=== PATIENT | female | born 1980 | race Caucasian/White ===

== ENCOUNTER 2019-08-01 22:17 | Emergency (ER) | payer MEDICARE, OTHER, SELFPAY ==
[2019-08-01 23:07] VITALS: BP 131/95; PULSE 86; RESP 15; TEMP 37; O2SAT 98; BMI 44.6
--- NOTE | 2019-08-01 23:20 | ED_ITS ---
HPI - Headache General: Chief Complaint: Headache Stated Complaint: Head Ache Time Seen by Provider: 08/01/19 23:20 History of Present Illness: HPI Narrative: Migraine as before patient requesting shot as she has had in the past has been very successful in curbing her migraine MD elicited complaint: migraine Onset (ago): hour(s) Onset description: gradually Quality & Timing: aching and throbbing Exacerbating factors: light and noise Relieving factors: nothing Associated symptoms: Deny chest pain, fever(s), nausea, rash or vomiting Review of Systems Const: Denies: fever, chills or body aches Eyes: Denies: change in vision or blurry vision ENMT: Denies: throat pain or nasal congestion Card: Denies: chest pain or shortness of breath on exertion Resp: Denies: shortness of breath, productive cough or non-productive cough GI: Denies: abdominal pain, nausea or vomiting Musc: Denies: extremity pain Skin/Breast: Denies: rash Neuro: Reports: headache Psych: Denies: anxiety or depression [place]/Lymph: Denies: easy bruising PFSH ED PFSH: Statuses (acute, chronic, etc) shown below reflect problem list status as previously entered and may not be historically accurate Social History Smoking and tobacco status: current every day smoker Female Reproductive History: Date of last menstrual period: 07/26/19 Physical Exam Const: COMMON NORMALS: no apparent distress, average body habitus and oriented x3 HENMT: COMMON NORMALS: normocephalic HEAD & SCALP: normal to inspection and normocephalic FACE & SINUS: normal facial exam Eye: COMMON NORMALS: conjunctivae normal GENERAL EYE: normal appearance of both eyes CONJUNCTIVA: Yes conjunctivae normal Neck/C-Spine: COMMON NORMALS: no JVD Chest: COMMONS NORMALS: inspection of chest normal Resp: COMMON NORMALS: normal respiratory effort and clear to auscultation bilaterally AUSCULTATION: clear to auscultation bilaterally Cardio: COMMON NORMALS: no JVD, regular rate and regular rhythm RATE: regular rate RHYTHM: regular rhythm GI: COMMON NORMALS: normal to inspection, nondistended, normoactive bowel sounds Extremity: COMMON NORMALS: normal to inspection and full ROM Neuro: COMMON NORMALS: oriented x3 Course Vital Signs: Vital signs: Vital Signs Temperature 98.6 F 08/01/19 23:07 Pulse Rate 86 01/07/20 23:07 Respiratory Rate 15 08/01/19 23:07 Blood Pressure 131/95 08/01/19 23:07 Pulse Oximetry 98 08/01/19 23:07 Discharge Plan Discharge Patient Disposition: Home, Self-Care Clinical Impression: Migraine Condition: Stable Referrals: [facility] [Other] Discharge Diet: Usual diet Discharge Activity: Increase activity as tolerated Patient Instructions: Migraine Headache (ED) Activity Restrictions/Additional Instructions: Follow-up with family doctor if no improvement. Can return to the ER if condition worsens. Get rest. Increase fluids. Coding Level of Care Code ED Oil Refinery Operator for Priscila Olmstead
[2019-08-01] MEDS: ketorolac 60 mg/2 mL INJ IM (23:36)
[2019-08-01] MEDS: promethazine 25 mg/mL SDV 1 mL IM (23:37)
[2019-08-02 00:29] VITALS: BP 122/86; PULSE 76; RESP 16; O2SAT 99
== END 2019-08-02 00:32 | disposition home or self-care (01) ==
LOC: ER 23:28
PROVIDERS: Emergency Provider Nurse Practitioner Family
DX: G43.909 Migraine, unspecified, not intractable, without status migrainosus (principal); F17.210 Nicotine dependence, cigarettes, uncomplicated
CPT/HCPCS: 96372; 99281; J1885; J2550

== ENCOUNTER 2019-08-14 23:53 | Emergency (ER) | payer OTHER, MEDICARE, SELFPAY ==
[2019-08-15 00:23] VITALS: BP 126/89; PULSE 88; RESP 16; TEMP 36.8; O2SAT 93; BMI 52.3
--- NOTE | 2019-08-15 00:28 | ED_ITS ---
Entered by Hannah Correa, acting as scribe for Bhavana Camarena Carlos Aug 14, 2019 23:53 HPI - Headache General: Chief Complaint: Headache Stated Complaint: Migraine,Sinus and ear pain Time Seen by Provider: 08/15/19 00:26 Source: patient Mode of arrival: ambulatory History of Present Illness: HPI Narrative: 39 y/o female presents to the ED with complaint of VENCES. Pt states she has hx of migraines. Pt has had sinus congestion and ear discomfort. MD elicited complaint: headache and migraine Pertinent past history: migraines Onset (ago): day(s) (1) Onset description: gradually Severity: mild Relieving factors: nothing Associated symptoms: Deny chest pain, confusion, diaphoresis, fever(s), malaise, nausea, pre-syncope, rash, syncope or vomiting Review of Systems General: Reports: other (negative unless marked) Const: Denies: fever, chills, body aches, fatigue, malaise or diaphoresis Eyes: Denies: change in vision or blurry vision Card: Denies: chest pain, palpitations, irregular heart rhythm, syncope, pre- syncope, shortness of breath on exertion or shortness of breath when lying down Resp: Denies: shortness of breath, productive cough, non-productive cough, wheezing, coughing up blood or chest congestion GI: Denies: abdominal pain, nausea, vomiting, vomiting blood, coffee grounds in vomit, diarrhea, constipation, cramping, blood in stool or black tarry stool : Denies: flank pain, painful urination, urinary frequency, urinary urgency, decreased urine ouput, urinary incontinence or blood in urine Musc: Denies: neck pain, back pain, extremity pain, extremity swelling, joint pain, joint swelling, joint warmth or joint stiffness Skin/Breast: Denies: rash, skin tenderness or yellow skin Neuro: Denies: headache, numbness in extremities, weakness in extremities, changes in sensation, lack of coordination, difficulty walking, dizziness, vertigo or confusion Endo: Denies: excessive thirst, tired all the time, cold intolerance, excessive sweating, flushing or hot flashes [place]/Lymph: Denies: easy bruising, easy bleeding, petechiae or enlarged lymph nodes All/Imm: Denies: hives, throat swelling, tongue swelling, facial swelling or acute wheezing PFSH ED 2 PFSH: Statuses (acute, chronic, etc) shown below reflect problem list status as previously entered and may not be historically accurate Social History Smoking and tobacco status: current every day smoker Female Reproductive History: Date of last menstrual period: 07/26/19 Physical Exam Const: COMMON NORMALS: no apparent distress, oriented x3, no limitations, healthy appearing and well nourished EXAM LIMITATIONS: no altered mental status GENERAL APPEARANCE: cooperative, well kempt and well developed ORIENTATION/CONSCIOUSNESS: Yes awake HENMT: COMMON NORMALS: normocephalic, head/scalp atraumatic, hearing grossly normal bilaterally, external ears normal, external nose normal and moist oral mucous membranes HEAD & SCALP: normal to inspection, normocephalic and atraumatic FACE & SINUS: normal facial exam and face symmetric NOSE: external nose normal and nares normal EXTERNAL EAR: Yes external ears normal MOUTH: oral and palatal mucosa normal and tongue normal Eye: COMMON NORMALS: PERRL, EOMs intact bilaterally, conjunctivae normal and no scleral icterus GENERAL EYE: normal appearance of both eyes and normal light reflex CONJUNCTIVA: Yes conjunctivae normal SCLERA: sclerae normal CORNEA: Yes corneas normal PUPIL: Yes PERRL DIRECT OPHTHALMOSCOPY: Yes normal light reflex Neck/C-Spine: COMMON NORMALS: full ROM, no lymphadenopathy, supple, no meningeal signs and no JVD GENERAL: Yes normal visual inspection and Yes trachea midline CERVICAL SPINE: Yes cervical ROM normal Chest: COMMONS NORMALS: inspection of chest normal and palpation of chest normal Resp: COMMON NORMALS: normal respiratory effort, no retractions, no use of accessory muscles and clear to auscultation bilaterally EFFORT & INSPECTION: Yes able to speak in complete sentences AUSCULTATION: clear to auscultation bilaterally Cardio: COMMON NORMALS: no JVD, regular rate, regular rhythm, S1 normal heart sound, S2 normal heart sound, no gallops, no clicks, no murmurs and no rub JUGULAR VENOUS DISTENTION: no JVD RATE: regular rate RHYTHM: regular rhythm HEART SOUNDS: S1 normal and S2 normal GI: COMMON NORMALS: soft to palpation, non-tender, no hepatosplenomegaly and no masses INSPECTION: Yes normal to inspection PALPATION: Yes soft and Yes no hepatosplenomegaly : COMMON NORMALS: Yes no CVA tenderness BLADDER/KIDNEY EXAM: Yes no CVA tenderness Back/Pelvis: COMMON NORMALS: no CVA tenderness, thoracic and lumbar spine normal to inspection, no thoracic nor lumbar tenderness and thoraco-lumbar ROM normal Extremity: COMMON NORMALS: normal to inspection, full ROM, normal capillary refill, no joint enlargement, no clubbing, cyanosis or edema and no calf tenderness Neuro: COMMON NORMALS: oriented x3, CN's II-XII intact bilaterally, moves all extremities, no focal motor deficits and no sensory deficits noted MENINGEAL SIGNS: Yes no meningeal signs Psych: COMMON NORMALS: mental status grossly normal, thought process normal, cooperative, affect normal, speech normal and activity/motor behavior normal APPEARANCE: Yes well kempt SPEECH: Yes normal speech THOUGHT PROCESS: normal thought process Skin: COMMON NORMALS: no rashes or lesions noted, skin turgor normal, no jaundice, no petechiae and no mottling GENERAL SKIN EXAM: no rashes or lesions noted and turgor normal Course Vital Signs: Vital signs: Vital Signs Temperature 98.2 F 08/15/19 00:23 Pulse Rate 88 08/15/19 00:23 Respiratory Rate 16 08/15/19 00:23 Blood Pressure 126/89 08/15/19 00:23 Pulse Oximetry 93 08/15/19 00:23 MDM - Headache MDM Narrative: Medical decision making narrative: The patient has a migraine headache which she states is normally relieved by Toradol and Phenergan. She states she has chronic sinusitis and understands antibiotics will not work for this but Flonase will usually work. She will try this at home. She agrees to return should her symptoms change or worsen but this time other than her headache she has no complaints. Discharge Plan Discharge Patient Disposition: Home, Self-Care Clinical Impression: Migraine Qualifiers: Migraine type: without aura Status migrainosus presence: without status migrainosus Intractability: not intractable Qualified Code(s): G43.009 - Migraine without aura, not intractable, without status migrainosus Sinusitis Qualifiers: Sinusitis location: maxillary Chronicity: chronic Qualified Code(s): J32.0 - Chronic maxillary sinusitis Condition: Stable Discharge Orders: Discharge Order (Routine); Ordered 08/15/19 Ordered By: Bhavana Camarena Referrals: [facility] [Other] Provider,[facility]IM [Primary Care Provider] - 1-3 days Discharge Diet: Usual diet Discharge Activity: Increase activity as tolerated Patient Instructions: Headache - Migraine (Adult) Activity Restrictions/Additional Instructions: Please return to the ER immediately for any of the signs or symptoms listed on your discharge instruction sheets, worsening/changing of your symptoms, you are not getting better as quickly as expected, or for ANY other cause or concerns. Discharge Date/Time: 08/15/19 01:24 Coding Level of Care Code ED Hydraulic Riveter for Chg Fwd Exam Problem Focused The documentation recorded by the Sunny brown Ashley, accurately reflects the service I personally performed and the decisions made by , Bhavana Camarena Aug 14, 2019 23:53
[2019-08-15] MEDS: ketorolac 60 mg/2 mL INJ IM (00:46)
[2019-08-15] MEDS: promethazine 25 mg/mL SDV 1 mL IM (00:46)
--- NOTE | 2019-08-15 01:11 | PC.NURSE ---
Introduced self to patient and initiated vital signs. Pt is A&O x 4 and agreeable. Pt states that the reason for the ER visit today is due to a headache. Reassured patient of needs and will continue to monitor. Awaiting provider at bedside.
== END 2019-08-15 01:24 | disposition home or self-care (01) ==
PROVIDERS: Emergency Provider Emergency Medicine
DX: G43.009 Migraine without aura, not intractable, without status migrainosus (principal); J32.0 Chronic maxillary sinusitis; F17.210 Nicotine dependence, cigarettes, uncomplicated
CPT/HCPCS: 96372; 99281; J1885; J2550

== ENCOUNTER 2019-08-20 21:59 | Emergency (ER) | payer MEDICARE, OTHER, SELFPAY ==
[2019-08-20 22:08] VITALS: BP 139/89; PULSE 90; RESP 18; TEMP 36.7; O2SAT 98; BMI 45.4
--- NOTE | 2019-08-20 22:10 | XR_ITS ---
WS: [id number] WRIST RIGHT TECHNIQUE: 3 views of the right wrist CLINICAL INFORMATION: trauma COMPARISON: None. FINDINGS: Normal radiocarpal joint. Scaphoid is normal in appearance. No evidence of radiocarpal dislocation. D istal radius and ulna are normal in appearance. XR/XR wrist RT min 3V* [id number] IMPRESSION: Normal right wrist.
--- NOTE | 2019-08-20 22:42 | ED_ITS ---
HPI - Fall General: Chief Complaint: Fall Stated Complaint: FALL, RIGHT ARM/WRIST INJURY Time Seen by Provider: 08/20/19 22:29 History of Present Illness: HPI Narrative: Patient fell while walking dog earlier today in her right wrist. MD complaint: fall Onset (ago): hour(s) Fall from: standing Fall witnessed: no Place fall occurred: home Loss of consciousness: None Location of injury - extremities: Right: forearm Severity: mild Severity scale (1-10): 2 Quality: dull Associated symptoms-after fall: Reports no associated symptoms; Denies abdominal pain, chest pain or headache(s) Review of Systems Const: Denies: fever, chills or body aches Eyes: Denies: change in vision or blurry vision ENMT: Denies: throat pain or nasal congestion Card: Denies: chest pain or shortness of breath on exertion Resp: Denies: shortness of breath, productive cough or non-productive cough GI: Denies: abdominal pain, nausea or vomiting Musc: Reports: extremity swelling and joint pain; Denies: extremity pain Skin/Breast: Denies: rash Neuro: Denies: headache Psych: Denies: anxiety or depression [place]/Lymph: Denies: easy bruising PFSH ED PFSH: Statuses (acute, chronic, etc) shown below reflect problem list status as previously entered and may not be historically accurate Social History Smoking and tobacco status: current every day smoker Female Reproductive History: Date of last menstrual period: 07/26/19 Physical Exam Const: COMMON NORMALS: no apparent distress, average body habitus and oriented x3 HENMT: COMMON NORMALS: normocephalic HEAD & SCALP: normal to inspection and normocephalic FACE & SINUS: normal facial exam Eye: COMMON NORMALS: conjunctivae normal GENERAL EYE: normal appearance of both eyes CONJUNCTIVA: Yes conjunctivae normal Neck/C-Spine: COMMON NORMALS: no JVD Chest: COMMONS NORMALS: inspection of chest normal Resp: COMMON NORMALS: normal respiratory effort and clear to auscultation bilaterally AUSCULTATION: clear to auscultation bilaterally Cardio: COMMON NORMALS: no JVD, regular rate and regular rhythm RATE: regular rate RHYTHM: regular rhythm GI: COMMON NORMALS: normal to inspection, nondistended, normoactive bowel sounds Extremity: COMMON NORMALS: full ROM RIGHT UPPER EXTREMITY: Yes wrist (Tender with mild swelling does have full range of motion) Neuro: COMMON NORMALS: oriented x3 Course Vital Signs: Vital signs: Vital Signs Temperature 98.0 F 08/20/19 22:08 Pulse Rate 90 08/20/19 22:08 Respiratory Rate 18 08/20/19 22:08 Blood Pressure 139/89 08/20/19 22:08 Pulse Oximetry 98 08/20/19 22:08 Discharge Plan Discharge Patient Disposition: Home, Self-Care Clinical Impression: Right wrist sprain Qualifiers: Encounter type: initial encounter Qualified Code(s): S63.501A - Unspecified sprain of right wrist, initial encounter Condition: Stable Discharge Orders: Discharge Order (Routine); Ordered 08/20/19 Ordered By: Kyle Lopez Referrals: [facility] [Other] Discharge Diet: Usual diet Discharge Activity: Resume usual activity Patient Instructions: Wrist Sprain (ED) Activity Restrictions/Additional Instructions: Wear splint t2-3 weeks try to exercise rest can use ice to help with inflammation take Tylenol for discomfort follow-up with primary if no significant provement. Coding Level of Care Code ED Deputy [employer] for Priscila Olmstead
--- NOTE | 2019-08-20 23:08 | PC.NURSE ---
Introduced self to patient and initiated vital signs. Pt is A&O x 3 and agreeable. Pt states that the reason for the ER visit today is due to injury to right wrist due to falling over dog. Reassured patient of needs and will continue to monitor.
[2019-08-20 23:11] VITALS: BP 124/104; PULSE 94; RESP 18
== END 2019-08-20 23:13 | disposition home or self-care (01) ==
LOC: ER 08-21 00:44
PROVIDERS: Emergency Provider Nurse Practitioner Family
DX: S63.501A Unspecified sprain of right wrist, initial encounter (principal); W19.XXXA Unspecified fall, initial encounter; Y92.009 Unspecified place in unspecified non-institutional (private) residence as the place of occurrence of the external cause; F17.210 Nicotine dependence, cigarettes, uncomplicated
CPT/HCPCS: 73110; 99281

== ENCOUNTER 2019-08-27 21:58 | Emergency (ER) | payer MEDICARE, OTHER, SELFPAY ==
[2019-08-27 22:22] VITALS: BP 135/78; TEMP 36.7; BMI 44.6
--- NOTE | 2019-08-27 22:25 | ED_ITS ---
Entered by Hannah Correa, acting as scribe for Cl Wick DO Aug 27, 2019 21:58 HPI - Headache General: Chief Complaint: Headache Stated Complaint: migraine Time Seen by Provider: 08/27/19 22:25 Source: patient History of Present Illness: HPI Narrative: 39 y/o female presents to the ED with complaint of migraine VENCES. Pt has hx of migraines and has been seen several times for the same complaint. Pt states the only thing that helps is 60 of Toradol and 25 of Phenergan . Pt is also complaining of right wrist pain from a recent fall. She was seen here and placed in a brace. She reports some left ear itching. She has also been under increased stress since her mother in May and other family drama. MD elicited complaint: migraine Pertinent past history: migraines Associated symptoms: Reports nausea; Deny chest pain, fever(s), rash or vomiting Review of Systems Const: Denies: fever or chills Eyes: Denies: change in vision or blurry vision ENMT: Reports: ear pain (left), Change in hearing and facial/sinus pain; Denies: painful swallowing, swelling of lips/tongue, bleeding gums or dental pain Card: Denies: chest pain, palpitations, irregular heart rhythm, edema, sw elling of feet/ankles, shortness of breath on exertion or shortness of breath when lying down Resp: Denies: shortness of breath, productive cough, non-productive cough or wheezing GI: Reports: nausea; Denies: abdominal pain, vomiting, rectal pain, blood in stool or black tarry stool : Denies: painful urination, urinary frequency, urinary urgency or blood in urine Skin/Breast: Denies: rash, itching or redness Neuro: Reports: headache; Denies: dizziness or vertigo Psych: Reports: anxiety PFSH ED PFSH: Statuses (acute, chronic, etc) shown below reflect problem list status as previously entered and may not be historically accurate Social History Smoking and tobacco status: current every day smoker Female Reproductive History: Date of last menstrual period: 07/26/19 Physical Exam Const: GENERAL APPEARANCE: well developed ORIENTATION/CONSCIOUSNESS: Yes oriented to person, Yes oriented to place and Yes oriented to time HENMT: COMMON NORMALS: normocephalic and external nose normal HEAD & SCALP: normocephalic; no scalp tenderness FACE & SINUS: normal facial exam NOSE: external nose normal and no nasal discharge GENERAL EAR: other (left canal redness) MOUTH: tongue normal Eye: COMMON NORMALS: PERRL, EOMs intact bilaterally and conjunctivae normal EYELID: eyelids normal CONJUNCTIVA: Yes conjunctivae normal PUPIL: Yes PERRL Neck/C-Spine: COMMON NORMALS: full ROM GENERAL: No tracheal deviation CERVICAL SPINE: Yes normal cervical lordosis and No cervical spine tenderness Chest: COMMONS NORMALS: inspection of chest normal CHEST: No tenderness Resp: COMMON NORMALS: clear to auscultation bilaterally EFFORT & INSPECTION: No tachypneic, No respiratory distress, No retractions, No uses accessory muscles and No tracheal deviation AUSCULTATION: clear to auscultation bilaterally, no rhonchi, no wheezes and lung sounds not diminished Cardio: COMMON NORMALS: regular rate and regular rhythm RATE: regular rate RHYTHM: regular rhythm HEART SOUNDS: no murmurs PERIPHERAL PULSES: radial pulses present GI: INSPECTION: No abdominal distension AUSCULTATION: No hyperactive bowel sounds and No hypoactive bowel sounds PALPATION: No guarding and No rigid PERCUSSION: no dullness to percussion and no tympanic to percussion : COMMON NORMALS: Yes no CVA tenderness BLADDER/KIDNEY EXAM: Yes no CVA tenderness Back/Pelvis: COMMON NORMALS: no CVA tenderness Extremity: LEFT UPPER EXTREMITY: Yes wrist (tenderness/mild swelling) Neuro: SENSORIUM/ORIENTATION: Yes oriented to person, Yes oriented to place and Yes oriented to time Psych: COMMON NORMALS: mental status grossly normal Skin: COMMON NORMALS: no rashes or lesions noted GENERAL SKIN EXAM: no rashes or lesions noted Course ED course: Patient presents with multiple complaints, none of which terribly emergent. Her headache improved after her injection. She will be prescribed p.o. Toradol for her wrist swelling status post sprain last week. She was prescribed Cortisporin for her otitis externa, which appeared to be allergic. Vital Signs: Vital signs: Vital Signs Temperature 98.1 F 08/27/19 22:22 Pulse Rate 75 08/27/19 23:41 Respiratory Rate 16 08/27/19 23:41 Blood Pressure 124/80 08/27/19 23:41 Pulse Oximetry 95 08/27/19 23:41 Discharge Plan Discharge Patient Disposition: Home, Self-Care Clinical Impression: Migraine Qualifiers: Migraine type: without aura Status migrainosus presence: without status migrainosus Intractability: not intractable Qualified Code(s): G43.009 - Migraine without aura, not intractable, without status migrainosus Otitis externa of left ear Qualifiers: Otitis externa type: noninfectious Noninfectious otitis externa type: eczematoid Chronicity: acute Qualified Code(s): H60.542 - Acute eczematoid otitis externa, left ear Condition: Stable Prescriptions: New ketorolac 10 mg tablet 10 mg PO Q6H PRN (Reason: pain) Qty: 10 RF: 0 Discharge Orders: Discharge Order (Routine); Ordered 08/27/19 Ordered By: Cl Wick Referrals: [facility] [Other] Discharge Diet: Usual diet Discharge Activity: Limit activity as instructed Patient Instructions: Otitis Externa (ED), Migraine Headache (ED) Activity Restrictions/Additional Instructions: Continue to splint the wrist up to 2 weeks. Medications as directed. Ice the wrist frequently. Discharge Date/Time: 08/27/19 23:42 Coding Level of Care Code ED Mgmt Analyst for Chg Fwd The documentation recorded by the Sunny brown Ashley, accurately reflects the service I personally performed and the decisions made by Delano bolanos Jeremy John, DO Aug 27, 2019 21:58
[2019-08-27] MEDS: ketorolac 60 mg/2 mL INJ IM (23:06)
[2019-08-27] MEDS: promethazine 25 mg/mL SDV 1 mL IM (23:06)
--- NOTE | 2019-08-27 23:08 | PC.NURSE ---
Patient reports that she has had a headache today due to stress. Patient states that she also is having right arm pain. Patient reports that she fell awhile back and injured her right wrist. Patient was seen here in the ER and sent home with an travon wrap. Patient currently wearing a wrist splint.
[2019-08-27] MEDS: neomycin-poly-hydrocort Otic Susp 10 mL Btl 4 DROP EAR-LEFT (23:40)
[2019-08-27 23:41] VITALS: BP 124/80; PULSE 75; RESP 16; O2SAT 95
== END 2019-08-27 23:42 | disposition home or self-care (01) ==
PROVIDERS: Emergency Provider Emergency Medicine
DX: G43.909 Migraine, unspecified, not intractable, without status migrainosus (principal); H60.542 Acute eczematoid otitis externa, left ear; M25.431 Effusion, right wrist; F17.210 Nicotine dependence, cigarettes, uncomplicated
CPT/HCPCS: 96372; 99281; 99283; J1885; J2550

== ENCOUNTER 2019-09-06 18:28 | Emergency (ER) | payer MEDICARE, OTHER, SELFPAY ==
[2019-09-06 18:30] VITALS: BP 129/88; PULSE 96; RESP 18; TEMP 36.6; O2SAT 97; BMI 44.6
[2019-09-06 18:41] VITALS: BP 114/79; PULSE 84; RESP 16; TEMP 36.8; O2SAT 97
--- NOTE | 2019-09-06 18:43 | XRR_ITS ---
PROCEDURE INFORMATION: Exam: XR Left Knee Exam date and time: 09/06/2019 6:53 PM Age: 39 years old Clinical indication: Pain; Knee; Left; Additional info: Pain, left knee x 1 week TECHNIQUE: Imaging protocol: XR Left knee. Views: Frontal and oblique (flexed), and lateral views. COMPARISON: CR Knee 3 views, LEFT* [id number] 08/26/2018 11:49 AM FINDINGS: Bones/joints: Normal. Soft tissues: Normal. XR/XR knee LT 3V* [id number] IMPRESSION: No acute findings.
--- NOTE | 2019-09-06 18:47 | W.ED.GENADLT ---
HPI - General Adult General: Chief complaint: General Medical Stated complaint: left knee pain/headache Time Seen by Provider: 09/06/19 18:38 Source: patient Mode of arrival: ambulatory Limitations: no limitations History of Present Illness: HPI narrative: Patient comes in today with complaints of left knee pain and a migraine headache. Patient states that she does not recall what she had done but starting over the last 2 days she has had increased pain and difficulty with her left knee and is unable to bear weight with it. Patient also reports having a migraine and would like to get an injection of Toradol and promethazine to abort her migraine. Patient appears well. Patient appears in mild pain at rest. Associated symptoms: Reports headache(s) Review of Systems General: Reports: 10 or more systems reviewed and unremarkable except in HPI and below Musc: Reports: joint pain (left knee) Neuro: Reports: headache PFSH ED PFSH: Statuses (acute, chronic, etc) shown below reflect problem list status as previously entered and may not be historically accurate Social History Smoking and tobacco status: current every day smoker Female Reproductive History: Date of last menstrual period: 07/26/19 Physical Exam Const: COMMON NORMALS: no apparent distress and oriented x3 GENERAL APPEARANCE: cooperative HENMT: COMMON NORMALS: normocephalic, external ears normal, EAC's normal, TM's normal bilaterally and external nose normal HEAD & SCALP: normal to inspection and normocephalic FACE & SINUS: normal facial exam NOSE: external nose normal GENERAL EAR: hearing not grossly impaired EXTERNAL EAR: Yes external ears normal EXTERNAL AUDITORY CANAL: EAC's normal TYMPANIC MEMBRANE: TM's normal bilaterally MOUTH: oral and palatal mucosa normal THROAT: posterior oropharynx normal Eye: COMMON NORMALS: PERRL and EOMs intact bilaterally PUPIL: Yes PERRL Neck/C-Spine: COMMON NORMALS: full ROM and no lymphadenopathy Lymph: LYMPHATIC: no lymphedema noted Chest: COMMONS NORMALS: inspection of chest normal and palpation of chest normal Resp: COMMON NORMALS: normal respiratory effort and clear to auscultation bilaterally AUSCULTATION: clear to auscultation bilaterally Cardio: COMMON NORMALS: regular rate and regular rhythm RATE: regular rate RHYTHM: regular rhythm GI: COMMON NORMALS: normal to inspection, nondistended, normoactive bowel sounds and non-tender : COMMON NORMALS: Yes no CVA tenderness BLADDER/KIDNEY EXAM: Yes no CVA tenderness Back/Pelvis: COMMON NORMALS: no CVA tenderness and thoracic and lumbar spine normal to inspection Extremity: GENERAL: Yes edema (mild left knee) LEFT LOWER EXTREMITY: Yes knee joint Left knee: Yes palpation (medial line tenderness) and Yes ROM (limited flexion and extension) Neuro: COMMON NORMALS: oriented x3, moves all extremities and no focal motor deficits Psych: COMMON NORMALS: mental status grossly normal and cooperative Skin: COMMON NORMALS: no rashes or lesions noted GENERAL SKIN EXAM: no rashes or lesions noted Course Vital Signs: Vital signs: Vital Signs Temperature 98.3 F 09/06/19 18:41 Pulse Rate 84 09/06/19 18:41 Respiratory Rate 16 09/06/19 18:41 Blood Pressure 114/79 09/06/19 18:41 Pulse Oximetry 97 09/06/19 18:41 MDM - General Adult MDM Narrative: Medical decision making narrative: Patient presents with headache starting this morning. Patient also has left knee pain that started this afternoon. Patient was seen at urgent care and no x-ray was done and she was concerned about her knee so she came to the ER for further evaluation. Exam notes some swelling to the medial aspect of the left knee. Decreased range of motion with flexion and extension. Stable knee joint. Tenderness to the medial aspect of the knee joint. Distal pulses are intact. Differential diagnosis includes tension type headache, migraine headache, malingering, knee sprain, meniscal injury, cruciate ligament strain, tendinitis, bursitis. X-ray of the knee were normal. Patient was injected with Toradol 60 mg and 25 mg of promethazine for her headache. We will continue patient on diclofenac for her knee pain. Elastic wrap for comfort. Follow-up with primary care for persistent symptoms or new concerns. Discharge Plan Discharge Patient Disposition: Home, Self-Care Clinical Impression: Headache Qualifiers: Headache type: tension-type Headache chronicity pattern: acute headache Intractability: not intractable Qualified Code(s): G44.209 - Tension-type headache, unspecified, not intractable Left knee pain Qualifiers: Chronicity: acute Qualified Code(s): M25.562 - Pain in left knee Condition: Stable Prescriptions: New diclofenac sodium 75 mg tablet,delayed release (DR/EC) 75 mg PO BID Qty: 14 RF: 0 Discharge Orders: Discharge Order (Routine); Ordered 09/06/19 Ordered By: Rojelio Ty Referrals: [facility] [Other] Discharge Diet: Usual diet Discharge Activity: Increase activity as tolerated Patient Instructions: Knee Pain (ED) Activity Restrictions/Additional Instructions: Activity as tolerated Elastic bandage Use walker to help assist with walking Follow-up with primary care in one week Coding Level of Care Code ED Auto Claim Representative for Priscila Fwgwendolyn Exam Problem Focused
[2019-09-06 19:57] VITALS: BP 138/78; PULSE 87; RESP 16; TEMP 36.8; O2SAT 98
== END 2019-09-06 19:58 | disposition home or self-care (01) ==
PROVIDERS: Emergency Provider Nurse Practitioner Family
DX: R51 Headache (principal); M25.562 Pain in left knee; F17.200 Nicotine dependence, unspecified, uncomplicated
CPT/HCPCS: 73562; 99281; 99283

== ENCOUNTER 2019-10-04 22:33 | Emergency (ER) | payer MEDICARE, OTHER, SELFPAY ==
[2019-10-04 22:55] VITALS: BP 132/88; PULSE 88; RESP 18; TEMP 36.5; O2SAT 99; BMI 44.6
--- NOTE | 2019-10-04 23:39 | W.ED.HA ---
HPI - Headache General: Chief Complaint: Headache Stated Complaint: MIGRAINE Time Seen by Provider: 10/04/19 22:34 Source: patient Mode of arrival: ambulatory Limitations: no limitations History of Present Illness: HPI Narrative: Patient comes in with a migraine headache for the last 3 days. Patient has been unable to get control of the headache at home with routine medications. Patient appears well. Patient appears in moderate pain. Patient also requests that her ears be checked for abnormality. Review of Systems General: Reports: 10 or more systems reviewed and unremarkable except in HPI and below Neuro: Reports: headache PFSH ED PFSH: Social History Smoking and tobacco status: current every day smoker Female Reproductive History: Date of last menstrual period: 07/26/19 Physical Exam Const: COMMON NORMALS: no apparent distress and oriented x3 GENERAL APPEARANCE: cooperative HENMT: COMMON NORMALS: normocephalic, external ears normal, EAC's normal, TM's normal bilaterally and external nose normal HEAD & SCALP: normal to inspection and normocephalic FACE & SINUS: normal facial exam NOSE: external nose normal GENERAL EAR: hearing not grossly impaired EXTERNAL EAR: Yes external ears normal EXTERNAL AUDITORY CANAL: EAC's normal TYMPANIC MEMBRANE: TM's normal bilaterally MOUTH: oral and palatal mucosa normal THROAT: posterior oropharynx normal Eye: COMMON NORMALS: PERRL and EOMs intact bilaterally PUPIL: Yes PERRL Neck/C-Spine: COMMON NORMALS: full ROM and no lymphadenopathy Lymph: LYMPHATIC: no lymphedema noted Chest: COMMONS NORMALS: inspection of chest normal and palpation of chest normal Resp: COMMON NORMALS: normal respiratory effort and clear to auscultation bilaterally AUSCULTATION: clear to auscultation bilaterally Cardio: COMMON NORMALS: regular rate and regular rhythm RATE: regular rate RHYTHM: regular rhythm GI: COMMON NORMALS: normal to inspection, nondistended, normoactive bowel sounds and non-tender : COMMON NORMALS: Yes no CVA tenderness BLADDER/KIDNEY EXAM: Yes no CVA tenderness Back/Pelvis: COMMON NORMALS: no CVA tenderness and thoracic and lumbar spine normal to inspection Extremity: COMMON NORMALS: normal to inspection GENERAL: No edema Neuro: COMMON NORMALS: oriented x3, moves all extremities and no focal motor deficits Psych: COMMON NORMALS: mental status grossly normal and cooperative Skin: COMMON NORMALS: no rashes or lesions noted GENERAL SKIN EXAM: no rashes or lesions noted Course Vital Signs: Vital signs: Vital Signs Temperature 97.7 F 10/04/19 22:55 Pulse Rate 88 10/04/19 22:55 Respiratory Rate 18 10/04/19 22:55 Blood Pressure 132/88 10/04/19 22:55 Pulse Oximetry 99 10/04/19 22:55 MDM - Headache MDM Narrative: Medical decision making narrative: Patient comes in today for complaints of migraine. On exam bilateral tympanic membranes are clear. Ear canals are clear. Respirations are even lungs are clear. No focal neural deficits noted. Skin is warm and dry. Vital signs are normal. Differential diagnosis acute headache, migraine headache, hypertension, anxiety. Patient was treated with Toradol 60 mg IM and 25 mg of promethazine. Patient tolerated injections well and requested to go home after injections. Patient was monitored and no reaction was noted to medication. Patient was released to home. Discharge Plan Discharge Patient Disposition: Home, Self-Care Clinical Impression: Migraine Qualifiers: Migraine type: unspecified Status migrainosus presence: with status migrainosus Intractability: not intractable Qualified Code(s): G43.901 - Migraine, unspecified, not intractable, with status migrainosus Condition: Stable Prescriptions: No Action diclofenac sodium 75 mg tablet,delayed release (DR/EC) 75 mg PO BID Qty: 14 RF: 0 Discharge Orders: Discharge Order (Routine); Ordered 10/04/19 Ordered By: Rojelio Ty Referrals: [facility] [Other] Luis Narvaez NP [Primary Care Provider] - Discharge Diet: Usual diet Discharge Activity: Increase activity as tolerated Patient Instructions: Acute Headache (ED) Activity Restrictions/Additional Instructions: Drink plenty of fluids Activity as tolerated Continue routine home medications Follow-up as needed Coding Level of Care Code ED Credit Collections Analyst for Chg Fwd Exam Comprehensive
[2019-10-04] MEDS: ketorolac 60 mg/2 mL INJ IM (23:46)
[2019-10-04] MEDS: promethazine 25 mg/mL SDV 1 mL IM (23:46)
[2019-10-05] VITALS: BP 127/87; PULSE 87; RESP 16; TEMP 36.5; O2SAT 99
== END 2019-10-05 00:01 | disposition home or self-care (01) ==
PROVIDERS: Emergency Provider Nurse Practitioner Family; PCP Nurse Practitioner Family
DX: G43.909 Migraine, unspecified, not intractable, without status migrainosus (principal); F17.200 Nicotine dependence, unspecified, uncomplicated
CPT/HCPCS: 12345; 96372; 99281; 99283; J1885; J2550

== ENCOUNTER 2019-10-16 01:59 | Emergency (ER) | payer MEDICARE, OTHER, SELFPAY ==
[2019-10-16 02:09] VITALS: BP 119/81; PULSE 80; RESP 18; TEMP 36.7; O2SAT 96; BMI 44.6
--- NOTE | 2019-10-16 02:15 | ED_ITS ---
HPI - Headache General: Chief Complaint: Headache Stated Complaint: migraine/ear pain Time Seen by Provider: 10/16/19 02:14 Source: patient Mode of arrival: ambulatory Limitations: no limitations History of Present Illness: HPI Narrative: Patient comes in today with complaints of migraine headache starting this evening. Patient has a history of recurrent migraines. Last episode that required ER treatment was 2 weeks ago. Patient also complains of some bilateral ear pain which is also chronic in nature. Patient denies fever. Patient appears well. Patient appears in mild to moderate pain. Review of Systems General: Reports: 10 or more systems reviewed and unremarkable except in HPI and below ENMT: Reports: ear pain Neuro: Reports: headache PFSH ED PFSH: Social History Smoking and tobacco status: current every day smoker Female Reproductive History: Date of last menstrual period: 10/09/19 Physical Exam Const: COMMON NORMALS: no apparent distress and oriented x3 GENERAL APPEARANCE: cooperative HENMT: COMMON NORMALS: normocephalic, external ears normal, EAC's normal, TM's normal bilaterally and external nose normal HEAD & SCALP: normal to inspection and normocephalic FACE & SINUS: normal facial exam NOSE: external nose normal GENERAL EAR: hearing not grossly impaired EXTERNAL EAR: Yes external ears normal EXTERNAL AUDITORY CANAL: EAC's normal TYMPANIC MEMBRANE: TM's normal bilaterally MOUTH: oral and palatal mucosa normal THROAT: posterior oropharynx normal Eye: COMMON NORMALS: PERRL and EOMs intact bilaterally PUPIL: Yes PERRL Neck/C-Spine: COMMON NORMALS: full ROM and no lymphadenopathy Lymph: LYMPHATIC: no lymphedema noted Chest: COMMONS NORMALS: inspection of chest normal and palpation of chest normal Resp: COMMON NORMALS: normal respiratory effort and clear to auscultation bilaterally AUSCULTATION: clear to auscultation bilaterally Cardio: COMMON NORMALS: regular rate and regular rhythm RATE: regular rate RHYTHM: regular rhythm GI: COMMON NORMALS: normal to inspection, nondistended, normoactive bowel sounds and non-tender : COMMON NORMALS: Yes no CVA tenderness BLADDER/KIDNEY EXAM: Yes no CVA tenderness Back/Pelvis: COMMON NORMALS: no CVA tenderness and thoracic and lumbar spine normal to inspection Extremity: COMMON NORMALS: normal to inspection GENERAL: No edema Neuro: COMMON NORMALS: oriented x3, moves all extremities and no focal motor deficits Psych: COMMON NORMALS: mental status grossly normal and cooperative Skin: COMMON NORMALS: no rashes or lesions noted GENERAL SKIN EXAM: no rashes or lesions noted Course Vital Signs: Vital signs: Vital Signs Temperature 98.1 F 10/16/19 02:09 Pulse Rate 80 10/16/19 02:09 Respiratory Rate 18 10/16/19 02:09 Blood Pressure 119/81 10/16/19 02:09 Pulse Oximetry 96 10/16/19 02:17 MDM - Headache MDM Narrative: Medical decision making narrative: Patient comes in for headache and ear pain. On exam bilateral ear canals are clear with some erythema to the canal itself. Patient has no focal neural deficits. Patient moves all extremities well. Vital signs are normal. Differential diagnosis includes otitis externa, eczema, otalgia, migraine headache, tension headache, malingering. Patient was treated for her headache with Toradol and promethazine. Patient was given a prescription for some Cortisporin eardrops for discomfort of the ears. Also recommended a trial of hydrocortisone cream applied to a Q-tip and gently using the ear canals for itching. Patient reports understanding of care plan and need for follow-up for worsening signs and symptoms. Discharge Plan Discharge Patient Disposition: Home, Self-Care Clinical Impression: Otalgia of both ears Migraine Qualifiers: Migraine type: unspecified Status migrainosus presence: without status migrainosus Intractability: not intractable Qualified Code(s): G43.909 - Migraine, unspecified, not intractable, without status migrainosus Condition: Stable Prescriptions: New [id number] 3.5-10,000-1 mg/mL-unit/mL-% drops,suspension 4 drp EAR-BOTH QID 5 Days Qty: 15 RF: 0 No Action diclofenac sodium 75 mg tablet,delayed release (DR/EC) 75 mg PO BID Qty: 14 RF: 0 Discharge Orders: Discharge Order (Routine); Ordered 10/16/19 Ordered By: Rojelio Ty Referrals: [facility] [Other] Luis Narvaez NP [Primary Care Provider] - Discharge Diet: Usual diet Discharge Activity: Increase activity as tolerated Patient Instructions: Earache (ED) Activity Restrictions/Additional Instructions: Medications as directed Drink plenty of fluids activity as tolerated Follow-up with primary care in one week Coding Level of Care Code ED Pediatric Physician for Chg Fwd Exam Comprehensive
[2019-10-16 02:17] VITALS: O2SAT 96
[2019-10-16] MEDS: promethazine 25 mg/mL SDV 1 mL IM (02:32)
[2019-10-16] MEDS: ketorolac 60 mg/2 mL INJ IM (02:32)
== END 2019-10-16 02:27 | disposition home or self-care (01) ==
PROVIDERS: Emergency Provider Nurse Practitioner Family; PCP Nurse Practitioner Family
DX: H92.03 Otalgia, bilateral (principal); G43.909 Migraine, unspecified, not intractable, without status migrainosus; F17.200 Nicotine dependence, unspecified, uncomplicated
CPT/HCPCS: 12345; 96372; 99281; 99283; J1885; J2550

== ENCOUNTER 2019-11-03 17:13 | Emergency (ER) | payer MEDICARE, OTHER, SELFPAY ==
[2019-11-03 17:28] VITALS: BP 140/89; PULSE 78; RESP 16; TEMP 36.9; O2SAT 97; BMI 44.6
--- NOTE | 2019-11-03 17:43 | W.ED.HA ---
HPI - Headache General: Chief Complaint: Headache Stated Complaint: headache Time Seen by Provider: 11/03/19 17:28 History of Present Illness: HPI Narrative: Patient comes in with her usual migraine she has had this 1 x 2 weeks. Did not come in because of the coronavirus. Patient states she like get her usual shot that works very effectively for her. Denies any states is just like her previous headache no other complaints or problems vomiting MD elicited complaint: migraine Onset (ago): week(s) Onset description: gradually Location: diffuse Severity: moderate Quality & Timing: aching and similar to previous headaches Exacerbating factors: other (Stress and anxiety) Relieving factors: nothing Associated symptoms: Reports no associated symptoms and nausea; Deny chest pain, fever(s) or rash Review of Systems Const: Denies: fever, chills or body aches Eyes: Denies: change in vision or blurry vision ENMT: Denies: throat pain or nasal congestion Card: Denies: chest pain or shortness of breath on exertion Resp: Denies: shortness of breath, productive cough or non-productive cough GI: Reports: nausea Musc: Denies: extremity pain Skin/Breast: Denies: rash Neuro: Reports: headache Psych: Denies: anxiety or depression [place]/Lymph: Denies: easy bruising PFSH ED PFSH: Social History Smoking and tobacco status: current every day smoker Female Reproductive History: Date of last menstrual period: 10/09/19 Physical Exam Const: COMMON NORMALS: no apparent distress, average body habitus and oriented x3 HENMT: COMMON NORMALS: normocephalic, external ears normal, EAC's normal and TM's normal bilaterally HEAD & SCALP: normal to inspection and normocephalic FACE & SINUS: normal facial exam EXTERNAL EAR: Yes external ears normal EXTERNAL AUDITORY CANAL: EAC's normal TYMPANIC MEMBRANE: TM's normal bilaterally Eye: COMMON NORMALS: conjunctivae normal GENERAL EYE: normal appearance of both eyes CONJUNCTIVA: Yes conjunctivae normal Neck/C-Spine: COMMON NORMALS: no JVD Chest: COMMONS NORMALS: inspection of chest normal Resp: COMMON NORMALS: normal respiratory effort and clear to auscultation bilaterally AUSCULTATION: clear to auscultation bilaterally Cardio: COMMON NORMALS: no JVD, regular rate and regular rhythm RATE: regular rate RHYTHM: regular rhythm GI: COMMON NORMALS: normal to inspection, nondistended, normoactive bowel sounds Extremity: COMMON NORMALS: normal to inspection and full ROM Neuro: COMMON NORMALS: oriented x3 Course Vital Signs: Vital signs: Vital Signs Temperature 98.4 F 11/03/19 17:28 Pulse Rate 78 11/03/19 17:28 Respiratory Rate 16 11/03/19 17:28 Blood Pressure 140/89 11/03/19 17:28 Pulse Oximetry 97 11/03/19 17:28 Discharge Plan Discharge Prescriptions: No Action diclofenac sodium 75 mg tablet,delayed release (DR/EC) 75 mg PO BID Qty: 14 RF: 0 Coding Level of Care Code ED Integrated Campaign Manager for Priscila Olmstead
[2019-11-03] MEDS: ketorolac 60 mg/2 mL INJ IM (17:50)
[2019-11-03] MEDS: promethazine 25 mg/mL SDV 1 mL IM (18:09)
[2019-11-03 18:42] VITALS: BP 115/83; PULSE 84; RESP 18; O2SAT 96
== END 2019-11-03 18:46 | disposition home or self-care (01) ==
LOC: ER 18:31
PROVIDERS: Emergency Provider Nurse Practitioner Family; PCP Nurse Practitioner Family
DX: G43.909 Migraine, unspecified, not intractable, without status migrainosus (principal); F17.200 Nicotine dependence, unspecified, uncomplicated
CPT/HCPCS: 12345; 96372; 99281; 99283; J1885; J2550

== ENCOUNTER 2019-11-15 11:09 | Emergency (ER) | payer MEDICARE, OTHER, SELFPAY ==
[2019-11-15 11:28] VITALS: BP 134/89; PULSE 86; RESP 17; TEMP 36.7; O2SAT 97; BMI 44.6
--- NOTE | 2019-11-15 11:29 | ED_ITS ---
HPI - Headache General: Chief Complaint: Extremity Injury, Lower Stated Complaint: LEFT KNEE PAIN, AND H/A Time Seen by Provider: 11/15/19 11:28 Source: patient Mode of arrival: ambulatory Limitations: no limitations History of Present Illness: HPI Narrative: 39-year-old female comes in today with complaints of tension type headache. Patient also complains of some left knee pain. 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 Patient is still weightbearing on the knee. Patient appears well. Patient appears in no acute distress. Patient comes in requesting injection for her headache. Patient does not take any routine medications at home. Review of Systems General: Reports: 10 or more systems reviewed and unremarkable except in HPI and below Musc: Reports: joint pain Neuro: Reports: headache [facility] ED PFSH: Social History Smoking and tobacco status: current every day smoker Female Reproductive History: Date of last menstrual period: 10/09/19 Physical Exam Const: COMMON NORMALS: no apparent distress and oriented x3 GENERAL APPEARANCE: cooperative HENMT: COMMON NORMALS: normocephalic, TM's normal bilaterally and external nose normal HEAD & SCALP: normal to inspection and normocephalic NOSE: external nose normal TYMPANIC MEMBRANE: TM's normal bilaterally MOUTH: or al and palatal mucosa normal THROAT: posterior oropharynx normal Eye: GENERAL EYE: normal appearance of both eyes Neck/C-Spine: COMMON NORMALS: full ROM Lymph: LYMPHATIC: no lymphadenopathy noted Chest: COMMONS NORMALS: inspection of chest normal Resp: COMMON NORMALS: normal respiratory effort EFFORT & INSPECTION: Yes able to speak in complete sentences Cardio: COMMON NORMALS: regular rate and regular rhythm RATE: regular rate RHYTHM: regular rhythm GI: COMMON NORMALS: non-tender : COMMON NORMALS: Yes no CVA tenderness BLADDER/KIDNEY EXAM: Yes no CVA tenderness Back/Pelvis: COMMON NORMALS: no CVA tenderness and thoracic and lumbar spine normal to inspection Extremity: NARRATIVE EXTREMITY EXAM: Patellar femoral tenderness noted to the left knee. No obvious swelling and decrease flexion due to pain. Neuro: COMMON NORMALS: oriented x3 and moves all extremities Psych: COMMON NORMALS: mental status grossly normal and cooperative Skin: COMMON NORMALS: no rashes or lesions noted GENERAL SKIN EXAM: no rashes or lesions noted Course Vital Signs: Vital signs: Vital Signs Temperature 98.0 F 11/15/19 11:28 Pulse Rate 86 11/15/19 11:28 Respiratory Rate 17 11/15/19 11:28 Blood Pressure 134/89 11/15/19 11:28 Pulse Oximetry 97 11/15/19 11:28 MDM - Headache MDM Narrative: Medical decision making narrative: Patient comes in for requesting Toradol and promethazine for her occasional tension type headache. Patient also would like her knee looked at which is in pain due to recent activity changes. Exam notes no nuchal rigidity. Vital signs are normal. Respirations are even lungs are clear to auscultation. Range of motion the knee is limited on flexion. No obvious redness or discoloration. Differential diagnosis includes but not limited to migraine, tension headache, strain/sprain of the knee, arthralgia of the knee, patellofemoral syndrome. Patient was given 60 mg Toradol and 25 mg of Phenergan for headache. Patient reports improvement of symptoms and was released to home to rest. Patient was recommended to use Lee wrap for comfort to the knee and use acetaminophen otherwise for pain. Patient reports understanding of plan of care and need for follow-up. Discharge Plan Discharge Patient Disposition: Home, Self-Care Clinical Impression: Arthralgia of knee, left Acute tension headache Qualifiers: Intractability: not intractable Qualified Code(s): G44.209 - Tension-type headache, unspecified, not intractable Condition: Stable Prescriptions: No Action diclofenac sodium 75 mg tablet,delayed release (DR/EC) 75 mg PO BID Qty: 14 RF: 0 Discharge Orders: Discharge Order (Routine); Ordered 11/15/19 Ordered By: Rojelio Ty Referrals: [facility] [Other] Luis Narvaez NP [Primary Care Provider] - Discharge Diet: Usual diet Discharge Activity: Increase activity as tolerated Patient Instructions: Knee Pain (ED) Activity Restrictions/Additional Instructions: Elastic wrap to knee for comfort Acetaminophen as needed for further pain control Ice and heat as needed Follow-up with primary care in one week Return to ER as needed for worsening symptoms Coding Level of Care Code ED Clinical Science Consultant for [employer] Fwd Exam Comprehensive
[2019-11-15] MEDS: promethazine 25 mg/mL SDV 1 mL IM (11:48)
[2019-11-15] MEDS: ketorolac 60 mg/2 mL INJ IM (11:49)
== END 2019-11-15 12:13 | disposition home or self-care (01) ==
PROVIDERS: Emergency Provider Nurse Practitioner Family; PCP Nurse Practitioner Family
DX: M25.562 Pain in left knee (principal); G44.209 Tension-type headache, unspecified, not intractable; F17.210 Nicotine dependence, cigarettes, uncomplicated
CPT/HCPCS: 12345; 96372; 99282; 99283; J1885; J2550

== ENCOUNTER 2019-11-27 12:02 | Emergency (ER) | payer MEDICARE, OTHER, SELFPAY ==
[2019-11-27 12:09] VITALS: BP 153/96; PULSE 86; RESP 16; TEMP 36.9; O2SAT 97; BMI 44.6
--- NOTE | 2019-11-27 12:22 | W.ED.HA ---
HPI - Headache General: Chief Complaint: Headache Stated Complaint: H/A AND WANTS A PAIN SHOT Time Seen by Provider: 11/27/19 12:05 History of Present Illness: HPI Narrative: Dominique comes in with a complaint of her classic migraine photo and phono sensitivity. Also recently treated for swollen ear canal by her PCP. Ear is improving and she just refilled her eardrops. Says she would like to have her usual to take care of her headache. MD elicited complaint: migraine Onset (ago): day(s) Onset description: gradually Location: diffuse Severity: moderate Quality & Timing: throbbing, dull and steady Exacerbating factors: light, noise and other (Stress) Relieving factors: nothing Associated symptoms: Reports nausea and photophobia; Deny chest pain, fever(s) or rash Review of Systems Const: Denies: fever, chills or body aches Eyes: Denies: change in vision or blurry vision ENMT: Reports: ear pain; Denies: throat pain or nasal congestion Card: Denies: chest pain or shortness of breath on exertion Resp: Denies: shortness of breath, productive cough or non-productive cough GI: Reports: nausea Musc: Denies: extremity pain Skin/Breast: Denies: rash Neuro: Reports: headache Psych: Denies: anxiety or depression [place]/Lymph: Denies: easy bruising PFSH ED PFSH: Social History Smoking and tobacco status: current every day smoker Female Reproductive History: Date of last menstrual period: 10/09/19 Physical Exam Const: COMMON NORMALS: no apparent distress, average body habitus and oriented x3 HENMT: COMMON NORMALS: normocephalic, external ears normal, EAC's normal and TM's normal bilaterally HEAD & SCALP: normal to inspection and normocephalic FACE & SINUS: normal facial exam EXTERNAL EAR: Yes external ears normal EXTERNAL AUDITORY CANAL: EAC's normal TYMPANIC MEMBRANE: TM's normal bilaterally Eye: COMMON NORMALS: conjunctivae normal GENERAL EYE: normal appearance of both eyes CONJUNCTIVA: Yes conjunctivae normal DIRECT OPHTHALMOSCOPY: Yes photophobia Neck/C-Spine: COMMON NORMALS: no JVD Chest: COMMONS NORMALS: inspection of chest normal Resp: COMMON NORMALS: normal respiratory effort and clear to auscultation bilaterally AUSCULTATION: clear to auscultation bilaterally Cardio: COMMON NORMALS: no JVD, regular rate and regular rhythm RATE: regular rate RHYTHM: regular rhythm GI: COMMON NORMALS: normal to inspection, nondistended, normoactive bowel sounds Extremity: COMMON NORMALS: normal to inspection and full ROM Neuro: COMMON NORMALS: oriented x3 and CN's II-XII intact bilaterally Course Vital Signs: Vital signs: Vital Signs Temperature 98.4 F 11/27/19 12:09 Pulse Rate 86 11/27/19 12:09 Respiratory Rate 16 11/27/19 12:09 Blood Pressure 153/96 11/27/19 12:09 Pulse Oximetry 97 11/27/19 12:09 Discharge Plan Discharge Patient Disposition: Home, Self-Care Clinical Impression: Migraine Qualifiers: Migraine type: chronic without aura Status migrainosus presence: without status migrainosus Intractability: intractable Qualified Code(s): G43.719 - Chronic migraine without aura, intractable, without status migrainosus Condition: Stable Prescriptions: No Action diclofenac sodium 75 mg tablet,delayed release (DR/EC) 75 mg PO BID Qty: 14 RF: 0 Discharge Orders: Discharge Order (Routine); Ordered 11/27/19 Ordered By: Serge Lopez Referrals: [facility] [Other] Luis Narvaez NP [Primary Care Provider] - Discharge Diet: Usual diet Discharge Activity: Resume usual activity Patient Instructions: Migraine Headache (ED) Activity Restrictions/Additional Instructions: Follow-up with your primary care provider as necessary Coding Level of Care Code ED Radioisotope Technician for Priscila Olmstead
[2019-11-27] MEDS: ketorolac 60 mg/2 mL INJ IM (12:36)
[2019-11-27] MEDS: promethazine 25 mg/mL SDV 1 mL IM (12:36)
[2019-11-27 12:42] VITALS: BP 123/88; PULSE 109; RESP 18; O2SAT 98
== END 2019-11-27 12:42 | disposition home or self-care (01) ==
PROVIDERS: Emergency Provider Nurse Practitioner Family; PCP Nurse Practitioner Family
DX: G43.719 Chronic migraine without aura, intractable, without status migrainosus (principal); F17.210 Nicotine dependence, cigarettes, uncomplicated
CPT/HCPCS: 12345; 96372; 99281; 99283; J1885; J2550

== ENCOUNTER 2019-12-08 18:10 | Emergency (ER) | payer MEDICARE, OTHER, SELFPAY ==
[2019-12-08 18:13] VITALS: BP 113/78; PULSE 91; RESP 18; TEMP 36.9; O2SAT 95; BMI 44.6
--- NOTE | 2019-12-08 19:36 | XRR_ITS ---
PROCEDURE INFORMATION: Exam: XR Right Ankle Exam date and time: 12/08/2019 7:56 PM Age: 39 years old Clinical indication: Pain and injury or trauma; Fall; Initial encounter; Blunt trauma; Injury details: Right medial ankle pain; Additional info: Injury fall TECHNIQUE: Imaging protocol: XR Right ankle. Views: 3 or more views. COMPARISON: CR Ankle 3 views, RIGHT* [id number] 12/03/2017 6:07 PM FINDINGS: Bones/joints: Normal. Soft tissues: Normal. XR/XR ankle RT min 3V* [id number] IMPRESSION: No acute findings.
--- NOTE | 2019-12-08 19:45 | ED_ITS ---
HPI - Extremity Problem General: Chief complaint: Extremity Injury, Lower Stated complaint: fall Time Seen by Provider: 12/08/19 19:35 History of Present Illness: HPI Narrative: Dominique is a nice 39-year-old female who comes in complaining of rolling her right ankle. She states she stepped off of a curb and when she went down her ankle twisted inward manner. She also has abrasions to the lateral aspect of her leg. She denies any head injury or injuries to the other parts of her body. Her greatest area of pain is to the medial aspect of her right ankle. Bearing weight does make the pain somewhat worse and rest makes it better. There is mild associated swelling. She denies any distal numbness, tingling or weakness. Patient is not taking anything for this yet for the pain. Review of Systems General: Reports: 10 or more systems reviewed and unremarkable except in HPI and below PFSH ED PFSH: Medical History (Updated 12/08/19 @ 20:18 by Bhavana Camarena) Migraines No pertinent past medical history Surgical History (Updated 12/08/19 @ 19:46 by Bhavana Camarena) S/P appendectomy Social History Smoking and tobacco status: current every day smoker Female Reproductive History: Date of last menstrual period: 10/09/19 Physical Exam Const: COMMON NORMALS: no acute distress, patient oriented x3, no limitations, healthy appearing and well nourished EXAM LIMITATIONS: no altered mental status GENERAL APPEARANCE: cooperative, well kempt and well developed HENMT: COMMON NORMALS: normocephalic, atraumatic, hearing grossly normal bilaterally, external ears normal, EAC's normal, Normal external nose present and moist oral mucous membranes HEAD & SCALP: normal to inspection, normocephalic and atraumatic FACE & SINUS: normal facial exam and face symmetric NOSE: Normal external nose present and Normal nares present EXTERNAL EAR: Yes external ears normal EXTERNAL AUDITORY CANAL: EAC's normal MOUTH: Normal oral and palatal mucosa present, lip normal and tongue normal Eye: COMMON NORMALS: Equal, round and reactive pupils present, EOMs intact bilaterally, conjunctivae normal and no scleral icterus GENERAL EYE: appea inocencia normal, both eyes and all related structures and normal light reflex ALIGNMENT: Yes alignment normal PERIORBITAL: periorbital findings normal EYELID: eyelids normal CONJUNCTIVA: Yes conjunctivae normal SCLERA: s clerae normal PUPIL: Yes Equal, round and reactive pupils present DIRECT OPHTHALMOSCOPY: Yes normal light reflex Neck/C-Spine: COMMON NORMALS: full ROM, no lymphadenopathy, supple, no meningeal signs and no JVD GENERAL: Yes normal visual inspection and Yes trachea midline CERVICAL SPINE: Yes cervical ROM normal Chest: COMMONS NORMALS: normal inspection of the chest and normal palpation of entire chest wall Resp: COMMON NORMALS: normal respiratory effort, No retractions, No use of accessory muscles and clear to auscultation bilaterally EFFORT & INSPECTION: Yes able to speak in complete sentences AUSCULTATION: clear to auscultation bilaterally, no crackles, no rales, no rhonchi and no wheezes Cardio: COMMON NORMALS: no JVD, regular rate, regular rhythm, S1 normal heart sound present, S2 normal heart sound present, No gallops present (Cardio), No clicks present (Cardio), No murmurs present (Cardio) and No rub (Cardio) RATE: regular rate RHYTHM: regular rhythm HEART SOUNDS: S1 normal heart sound present, S2 normal heart sound present, no click, no gallops, no murmurs and no rubs GI: COMMON NORMALS: Soft to palpation, non-tender, No hepatosplenomegaly present and no masses PALPATION: Yes Soft to palpation, No Tenderness to palpation present (GI), No Guarding due to palpation present (GI), No Rigid due to palpation, Yes No hepatosplenomegaly present, No Hernia present, No Palpable mass present and No Pulsatile mass present : COMMON NORMALS: Yes no CVA tenderness BLADDER/KIDNEY EXAM: Yes no CVA tenderness EXTERNAL FEMALE EXAM: No Hernia present Back/Pelvis: COMMON NORMALS: no CVA tenderness, thoracic and lumbar spine normal to inspection, no thoracic nor lumbar tenderness and thoraco-lumbar ROM normal Extremity: NARRATIVE EXTREMITY EXAM: Extremity exam is normal except for the right lower extremity. Right lower extremity has abrasion to the lateral aspect of the leg. Pain on palpation is present over the medial malleolus. Patient has strong dorsalis pedis and posterior tibial pulse. Neurovascular intact distal. Neuro: COMMON NORMALS: patient oriented x3, CN's II-XII intact bilaterally, moves all extremities, no focal motor deficits and no sensory deficits noted MENINGEAL SIGNS: Yes no meningeal signs SPEECH: speech normal Psych: COMMON NORMALS: mental status grossly normal, Normal thought process present, cooperative, normal affect, speech normal and activity/motor behavior normal APPEARANCE: Yes well kempt SPEECH: Yes normal speech THOUGHT PROCESS: Normal thought process present Skin: COMMON NORMALS: no rashes or lesions noted, turgor normal, no jaundice, no petechiae and no mottling GENERAL SKIN EXAM: no rashes or lesions noted and turgor normal Course Vital Signs: Vital signs: Vital Signs Temperature 98.5 F 12/08/19 18:13 Pulse Rate 84 12/08/19 20:52 Respiratory Rate 18 12/08/19 20:52 Blood Pressure 126/89 12/08/19 20:52 Pulse Oximetry 94 12/08/19 20:52 MDM - Extremity (Nontraumatic) MDM Narrative: Medical decision making narrative: Dominique is a nice 39-year-old female who comes in with medial ankle pain after twisting her ankle coming off a curb. She has no neurovascular compromise to the foot. There are abrasions present. X-ray of her ankle does not reveal any obvious major fractures or dislocations. There is a questionable medial malleolus avulsion fracture. It is also possible that this could just be some arthritis. The patient agrees to use a splint, she has crutches at home and will use these and will follow-up with orthopedics. She understands not to bear weight until she is seen by them. Imaging Data^: Right Ankle: My impression: Possible avulsion fracture over medial malleolus. Otherwise no significant fractures or dislocations. Discharge Plan Discharge Patient Disposition: Home, Self-Care Clinical Impression: Ankle fracture Qualifiers: Encounter type: initial encounter Fracture type: closed Laterality: left Qualified Code(s): S82.892A - Other fracture of left lower leg, initial encounter for closed fracture Condition: Stable Prescriptions: No Action diclofenac sodium 75 mg tablet,delayed release (DR/EC) 75 mg PO BID Qty: 14 RF: 0 Discharge Orders: Discharge Order (Routine); Ordered 12/08/19 Ordered By: Bhavana Camarena Referrals: Alison Estrella MD [Physician] - 1-3 days (First thing Wednesday morning call [phone] and choose option 2. Call extension 11/26/2000 and ask for Yelena to leave. She will arrange for an appointment for you to be seen by orthopedics on Wednesday.) Luis Narvaez NP [Primary Care Provider] - Discharge Diet: Advance as tolerated Discharge Activity: Limit activity as instructed and Use walker/crutches as instructed Patient Instructions: Ankle Fracture (ED) Activity Restrictions/Additional Instructions: Please return to the ER immediately for any of the signs or symptoms listed on your discharge instruction sheets, worsening/changing of your symptoms, you are not getting better as quickly as expected, or for ANY other cause or concerns. Use your crutches and do not bear weight on your ankle until informed further by your orthopedic doctor. Return to the ER for increased pain, numbness, weakness, or for any other cause for concern. Discharge Date/Time: 12/08/19 20:56 Coding Level of Care Code ED Senior Net Application Developer for Priscila Olmstead Exam Comprehensive
[2019-12-08 20:45] VITALS: BP 129/89; PULSE 84; RESP 16; O2SAT 94
[2019-12-08 20:52] VITALS: BP 126/89; PULSE 84; RESP 18; O2SAT 94
--- NOTE | 2019-12-11 11:14 | DCPLANNER ---
manager water wastewater had message to schedule a follow up appointment for patient with ortho. manager water wastewater called the ortho clinic, spoke with Pat, gave clinic patients information. manager water wastewater was told that patients information would be printed and reviewed. Clinic will call shoe caser and patient with appointment information.
--- NOTE | 2019-12-13 12:57 | DCPLANNER ---
Patient has a follow up appointment scheduled for 12.12.19 with ortho, patient did attend the appointment.
== END 2019-12-08 20:56 | disposition home or self-care (01) ==
PROVIDERS: Emergency Provider Emergency Medicine; PCP Nurse Practitioner Family
DX: S82.892A Other fracture of left lower leg, initial encounter for closed fracture (principal); X50.1XXA Overexertion from prolonged static or awkward postures, initial encounter; F17.210 Nicotine dependence, cigarettes, uncomplicated
CPT/HCPCS: 12345; 29515; 73610; 99281; 99283

== ENCOUNTER 2019-12-09 11:39 | Emergency (ER) | payer MEDICARE, OTHER, SELFPAY ==
[2019-12-09 11:46] VITALS: BMI 44.6
--- NOTE | 2019-12-09 11:58 | W.ED.GENADLT ---
HPI - General Adult General: Chief complaint: General Medical Stated complaint: splint readjusted Time Seen by Provider: 12/09/19 11:44 History of Present Illness: HPI narrative: Dominique comes in with complaint of headache and gemma wants her splint readjusted in her foot from that was put on last night. Patient said that her splint was just uncomfortable MD complaint: Headache Onset (ago): hour(s) Severity: mild Pain Consistency: constant Associated symptoms: Reports no associated symptoms and headache(s); Deny chest pain, dyspnea, nausea, rash or vomiting Review of Systems Const: Denies: fever(s), chills or body aches Eyes: Denies: change in vision or blurry vision ENMT: Denies: throat pain or nasal congestion Card: Denies: chest pain or dyspnea on exertion Resp: Denies: dyspnea, productive cough or non-productive cough GI: Denies: abdominal pain, nausea or vomiting Musc: Reports: extremity pain (Ankle is not swelled x-ray shows that there is no fracture splint was removed) Skin/Breast: Denies: rash Neuro: Reports: headache(s) Psych: Denies: anxiety or depression [place]/Lymph: Denies: easy bruising PFSH ED PFSH: Medical History (Updated 12/08/19 @ 20:18 by Bhavana Camarena) Migraines No pertinent past medical history Surgical History (Updated 12/08/19 @ 19:46 by Bhavana Camarena) S/P appendectomy Social History Smoking and tobacco status: current every day smoker Female Reproductive History: Date of last menstrual period: 10/09/19 Physical Exam Const: COMMON NORMALS: no acute distress, average body habitus and patient oriented x3 HENMT: COMMON NORMALS: normocephalic HEAD & SCALP: normal to inspection and normocephalic FACE & SINUS: normal facial exam Eye: COMMON NORMALS: conjunctivae normal GENERAL EYE: appearance normal, both eyes and all related structures CONJUNCTIVA: Yes conjunctivae normal Neck/C-Spine: COMMON NORMALS: no JVD Chest: COMMONS NORMALS: normal inspection of the chest Resp: COMMON NORMALS: normal respiratory effort and clear to auscultation bilaterally AUSCULTATION: clear to auscultation bilaterally Cardio: COMMON NORMALS: no JVD, regular rate and regular rhythm RATE: regular rate RHYTHM: regular rhythm GI: COMMON NORMALS: Normal to inspection, nondistended, normoactive bowel sounds present Extremity: COMMON NORMALS: normal to inspection and full ROM NARRATIVE EXTREMITY EXAM: No swelling to the right ankle splints removed slight abrasion Lee wrap applied Neuro: COMMON NORMALS: patient oriented x3 Discharge Plan Discharge Prescriptions: No Action No Known Home Medications RF: 0 Coding Level of Care Code ED Water Pumping Station Engineer for Priscila Olmstead
[2019-12-09] MEDS: promethazine 25 mg/mL SDV 1 mL IM (12:31)
[2019-12-09] MEDS: ketorolac 60 mg/2 mL INJ IM (12:31)
[2019-12-09 12:35] VITALS: RESP 18
== END 2019-12-09 12:35 | disposition home or self-care (01) ==
PROVIDERS: Emergency Provider Nurse Practitioner Family; PCP Nurse Practitioner Family
DX: Z47.89 Encounter for other orthopedic aftercare (principal); F17.210 Nicotine dependence, cigarettes, uncomplicated
CPT/HCPCS: 12345; 96372; 99281; 99283; E0114; J1885; J2550

== ENCOUNTER 2019-12-12 14:42 | Outpatient (CLI) | payer MEDICARE, OTHER, SELFPAY | END 2019-12-12 14:43 | disposition home or self-care (01) | LOC: SPT 14:43 | PROVIDERS: PCP Nurse Practitioner Family; Visit Provider Podiatrist Foot & Ankle Surgery | DX: Z46.89 Encounter for fitting and adjustment of other specified devices (principal); S82.891D Other fracture of right lower leg, subsequent encounter for closed fracture with routine healing; X58.XXXD Exposure to other specified factors, subsequent encounter | CPT/HCPCS: 97760; L4361 ==

== ENCOUNTER → 2019-12-26 14:19 | Outpatient (BNVA) | payer MEDICARE, OTHER, SELFPAY | PROVIDERS: PCP Nurse Practitioner Family; Visit Provider Podiatrist Foot & Ankle Surgery | DX: S82.891A Other fracture of right lower leg, initial encounter for closed fracture (principal); X58.XXXA Exposure to other specified factors, initial encounter | CPT/HCPCS: 73610 ==

== ENCOUNTER 2020-01-02 01:22 | Emergency (ER) | payer MEDICARE, OTHER, SELFPAY ==
[2020-01-02 01:31] VITALS: BP 123/88; PULSE 97; RESP 18; TEMP 36.3; O2SAT 95; BMI 44.6
--- NOTE | 2020-01-02 01:39 | ED_ITS ---
HPI - Headache General: Chief Complaint: Headache Stated Complaint: headache/ear pain Time Seen by Provider: 01/02/20 01:34 Source: patient Mode of arrival: ambulatory Limitations: no limitations History of Present Illness: HPI Narrative: 39-year-old female who has a long history of migraines. She has had a migraine for the last day that is a 6 out of 10. Is worse with bright lights and improved in dark rooms. Denies any fever or vomiting. MD elicited complaint: headache Pertinent past history: migraines Onset (ago): hour(s) Onset description: gradually Severity: moderate Quality & Timing: aching Exacerbating factors: none Relieving factors: nothing Associated symptoms: Deny chest pain, fever(s), nausea, rash or vomiting Review of Systems Const: Denies: fever(s), chills, body aches or change in appetite Eyes: Denies: blurry vision or eye discomfort ENMT: Denies: throat pain or dental pain Card: Denies: chest pain Resp: Denies: dyspnea GI: Denies: abdominal pain, nausea, vomiting or diarrhea : Denies: dysuria Musc: Denies: neck pain or back pain Skin/Breast: Denies: rash Neuro: Reports: headache(s) Psych: Denies: depression [place]/Lymph: Denies: easy bruising All/Imm: Denies: urticaria PFSH ED PFSH: Medical History Migraines No pertinent past medical history Surgical History S/P appendectomy Social History Smoking and tobacco status: current every day smoker Alcohol intake: never Current occupational status: disabled Female Reproductive History: Date of last menstrual period: 10/09/19 Physical Exam Const: COMMON NORMALS: no acute distress, patient oriented x3 and healthy appearing HENMT: COMMON NORMALS: normocephalic and atraumatic HEAD & SCALP: normocephalic and atraumatic Eye: COMMON NORMALS: Equal, round and reactive pupils present and EOMs intact bilaterally PUPIL: Yes Equal, round and reactive pupils present Neck/C-Spine: COMMON NORMALS: full ROM and supple Chest: COMMONS NORMALS: normal inspection of the chest and normal palpation of entire chest wall Resp: COMMON NORMALS: normal respiratory effort, No retractions, No use of accessory muscles and clear to auscultation bilaterally AUSCULTATION: clear to auscultation bilaterally Cardio: COMMON NORMALS: regular rate, regular rhythm and No murmurs present (Cardio) RATE: regular rate RHYTHM: regular rhythm GI: COMMON NORMALS: Normal to inspection, nondistended, normoactive bowel sounds present, Soft to palpation, non-tender and no masses PALPATION: Yes Soft to palpation Extremity: COMMON NORMALS: normal to inspection and full ROM Neuro: COMMON NORMALS: patient oriented x3, moves all extremities and no focal motor deficits Psych: COMMON NORMALS: mental status grossly normal, Normal thought process present and cooperative THOUGHT PROCESS: Normal thought process present Skin: COMMON NORMALS: no rashes or lesions noted and no wounds GENERAL SKIN EXAM: no rashes or lesions noted Course Vital Signs: Vital signs: Vital Signs Temperature 97.3 F L 01/02/20 01:31 Pulse Rate 97 01/02/20 01:31 Respiratory Rate 18 01/02/20 01:31 Blood Pressure 123/88 01/02/20 01:31 Pulse Oximetry 95 01/02/20 01:31 MDM - Headache MDM Narrative: Medical decision making narrative: Patient presents here with a migraine headache with chronic migraines. This is just like her previous migraines she has no signs subarachnoid image or meningitis. Patient's improved after Toradol and Phenergan and she is stable for discharge. Discharge Plan Discharge Patient Disposition: Home, Self-Care Clinical Impression: Migraine Qualifiers: Migraine type: unspecified Status migrainosus presence: without status migrainosus Intractability: not intractable Qualified Code(s): G43.909 - Migraine, unspecified, not intractable, without status migrainosus Condition: Stable Prescriptions: No Action (DME) CAM WALKER See Rx Instructions .ROUTE .MEDSUPPLY Qty: 1 RF: 0 (DME) Even Up See Rx Instructions .Route .MEDSUPPLY Qty: 1 RF: 0 diclofenac sodium [Voltaren] 1 % gel 4 gm TOPICAL QID Qty: 100 RF: 0 Discharge Orders: Discharge Order (Routine); Ordered 01/02/20 Ordered By: David Loco Referrals: Luis Narvaez NP [Primary Care Provider] - 1-3 days Discharge Diet: Advance as tolerated Discharge Activity: Resume usual activity Patient Instructions: Migraine Headache (ED) Coding Level of Care Code ED Forming Tube Selector for Priscila Olmstead
[2020-01-02] MEDS: ketorolac 60 mg/2 mL INJ IM (01:52)
[2020-01-02] MEDS: promethazine 25 mg/mL SDV 1 mL IM (01:53)
--- NOTE | 2020-01-02 01:53 | PC.NURSE ---
Pt. declines DC vS
== END 2020-01-02 01:54 | disposition home or self-care (01) ==
PROVIDERS: Emergency Provider Emergency Medicine; PCP Nurse Practitioner Family
DX: G43.909 Migraine, unspecified, not intractable, without status migrainosus (principal); F17.210 Nicotine dependence, cigarettes, uncomplicated
CPT/HCPCS: 12345; 96372; 99281; 99283; J1885; J2550

== ENCOUNTER → 2020-01-15 15:07 | Outpatient (BNVA) | payer MEDICARE, OTHER, SELFPAY | PROVIDERS: PCP Nurse Practitioner Family; Visit Provider Podiatrist Foot & Ankle Surgery | DX: S82.891A Other fracture of right lower leg, initial encounter for closed fracture (principal); X58.XXXA Exposure to other specified factors, initial encounter | CPT/HCPCS: 73610 ==

== ENCOUNTER 2020-01-15 16:46 | Outpatient (CLI) | payer MEDICARE, OTHER, SELFPAY | END 2020-01-15 16:47 | disposition home or self-care (01) | LOC: SPT 16:47 | PROVIDERS: PCP Nurse Practitioner Family; Visit Provider Podiatrist Foot & Ankle Surgery | DX: Z46.89 Encounter for fitting and adjustment of other specified devices (principal); S82.891D Other fracture of right lower leg, subsequent encounter for closed fracture with routine healing; X58.XXXD Exposure to other specified factors, subsequent encounter; S82.891A Other fracture of right lower leg, initial encounter for closed fracture; X58.XXXA Exposure to other specified factors, initial encounter | CPT/HCPCS: 73610; 97760; L1902 ==

== ENCOUNTER 2020-02-24 15:35 | Emergency (ER) | payer MEDICARE, OTHER, SELFPAY ==
[2020-02-24 15:40] VITALS: BP 127/75; PULSE 100; RESP 18; TEMP 36.4; O2SAT 98; BMI 45.4
--- NOTE | 2020-02-24 16:03 | ED_ITS ---
HPI - Headache General: Chief Complaint: Headache Stated Complaint: santiago Time Seen by Provider: 02/24/20 15:49 History of Present Illness: HPI Narrative: 40-year-old female patient presents to the emergency department with, migraine headache she is requesting 60 mg of Toradol IM with 25 mg of Phenergan IM and to go home. She reports headache started last night around 11:00 PM. Attempted ibuprofen without improvement. She reports nausea, no vomiting. Denies fever or chills. MD elicited complaint: migraine Onset description: gradually Location: right and parietal Severity: moderate Quality & Timing: aching, throbbing, pulsatile, squeezing and pressure Exacerbating factors: movement of head/neck, sitting/standing, light and noise Relieving factors: rest and dark room Context: occurred at rest Associated symptoms: Reports nausea, photophobia and sound sensitivity; Deny chest pain, confusion, diaphoresis, fever(s), rash or vomiting Treatments prior to arrival: ibuprofen Review of Systems General: Reports: 10 or more systems reviewed and unremarkable except in HPI and below Const: Denies: fever(s), chills or diaphoresis Eyes: Denies: blurry vision or eye redness ENMT: Denies: throat pain, dental pain or disequilibrium Card: Denies: chest pain, palpitations or irregular heart rhythm Resp: Denies: dyspnea, productive cough, non-productive cough or wheezing GI: Reports: nausea; Denies: abdominal pain or vomiting : Denies: difficulty voiding or dysuria Musc: Denies: neck pain, back pain, muscle cramps or muscle weakness Skin/Breast: Denies: rash or pruritus Neuro: Reports: headache(s); Denies: weakness in extremities, confusion, behavioral changes or difficulty communicating thoughts [place]/Lymph: Denies: easy bruising PFSH ED PFSH: Medical History Migraines No pertinent past medical history Surgical History S/P appendectomy Social History Smoking and tobacco status: current every day smoker Alcohol intake: never Current occupational status: disabled Female Reproductive History: Date of last menstrual period: 10/09/19 Physical Exam Const: COMMON NORMALS: no acute distress, patient oriented x3, healthy appearing and alert GENERAL APPEARANCE: cooperative, comfortable and well hydrated HENMT: COMMON NORMALS: normocephalic, Normal external nose present and moist oral mucous membranes HEAD & SCALP: normocephalic NOSE: Normal external nose present TYMPANIC MEMBRANE: TM abnormal TM laterality: bilateral dull, with loss of landmarks and other (Complaining of eustachian tube dysfunction, chronic requesting Flonase) MOUTH: Normal oral and palatal mucosa present THROAT: posterior oropharynx normal Eye: COMMON NORMALS: Equal, round and reactive pupils present and EOMs intact bilaterally GENERAL EYE: appearance normal, both eyes and all related structures PUPIL: Yes Equal, round and reactive pupils present DIRECT OPHTHALMOSCOPY: Yes photophobia Neck/C-Spine: COMMON NORMALS: full ROM and no lymphadenopathy GENERAL: Yes normal visual inspection and Yes trachea midline CERVICAL SPINE: Yes cervical ROM normal Lymph: LYMPHATIC: no lymphadenopathy noted Chest: COMMONS NORMALS: normal inspection of the chest Resp: COMMON NORMALS: normal respiratory effort and clear to auscultation bilaterally AUSCULTATION: clear to auscultation bilaterally Cardio: COMMON NORMALS: regular rhythm, S1 normal heart sound present and S2 normal heart sound present RHYTHM: regular rhythm HEART SOUNDS: S1 normal heart sound present and S2 normal heart sound present GI: COMMON NORMALS: Soft to palpation and non-tender INSPECTION: Yes normal to inspection PALPATION: Yes Soft to palpation : COMMON NORMALS: Yes no CVA tenderness BLADDER/KIDNEY EXAM: Yes no CVA tenderness Back/Pelvis: COMMON NORMALS: no CVA tenderness and thoracic and lumbar spine normal to inspection Extremity: COMMON NORMALS: normal to inspection and capillary refill normal Neuro: MORGAN COMA SCALE: document GCS findings Morgan coma scale eye opening: Spontaneous Morgan coma scale verbal response: Orientated Morgan coma scale motor response: Obey commands Morgan coma scale total score: 15 COMMON NORMALS: patient oriented x3, CN's II-XII intact bilaterally and no focal motor deficits SENSORIUM/ORIENTATION: Yes alert SPEECH: speech normal GAIT: Yes Normal gait present MOTOR EXAM: 5/5 motor strength present throughout Psych: COMMON NORMALS: mental status grossly normal, Normal thought process present and cooperative ACTIVITY/MOTOR BEHAVIOR: Yes appropriate eye contact THOUGHT PROCESS: Normal thought process present Skin: COMMON NORMALS: no rashes or lesions noted and turgor normal GENERAL SKIN EXAM: no rashes or lesions noted and turgor normal Course Vital Signs: Vital signs: Vital Signs Temperature 97.5 F L 02/24/20 15:40 Pulse Rate 100 02/24/20 15:40 Respiratory Rate 18 02/24/20 15:40 Blood Pressure 127/75 02/24/20 15:40 Pulse Oximetry 98 02/24/20 15:40 Discharge Plan Discharge Prescriptions: No Action (DME) CAM WALKER See Rx Instructions .ROUTE .MEDSUPPLY Qty: 1 RF: 0 (DME) Even Up See Rx Instructions .Route .MEDSUPPLY Qty: 1 RF: 0 diclofenac sodium [Voltaren] 1 % gel 4 gm TOPICAL QID Qty: 100 RF: 0 (DME) ASO ankle brace See Rx Instructions .Route .MEDSUPPLY Qty: 1 RF: 0 Coding Level of Care Code ED Dermatologist Managing Partner for Priscila Olmstead
[2020-02-24 16:25] VITALS: O2SAT 95
[2020-02-24] MEDS: ketorolac 60 mg/2 mL INJ IM (16:38)
[2020-02-24] MEDS: promethazine 25 mg/mL SDV 1 mL IM (16:39)
== END 2020-02-24 16:50 | disposition home or self-care (01) ==
LOC: ER 15:53
PROVIDERS: Emergency Provider Nurse Practitioner Family; PCP Nurse Practitioner Family
DX: R51 Headache (principal); F17.210 Nicotine dependence, cigarettes, uncomplicated
CPT/HCPCS: 12345; 96372; 99281; 99283; J1885; J2550

== ENCOUNTER → 2020-03-11 15:17 | Outpatient (BNVA) | payer MEDICARE, OTHER, SELFPAY | PROVIDERS: PCP Nurse Practitioner Family; Visit Provider Podiatrist Foot & Ankle Surgery | DX: S82.891D Other fracture of right lower leg, subsequent encounter for closed fracture with routine healing (principal); X58.XXXD Exposure to other specified factors, subsequent encounter | CPT/HCPCS: 73610; 93271 ==

== ENCOUNTER 2020-03-16 18:36 | Emergency (ER) | payer MEDICARE, OTHER, SELFPAY ==
[2020-03-16 18:44] VITALS: BP 136/85; PULSE 98; RESP 18; TEMP 37.1; O2SAT 98; BMI 45.4
--- NOTE | 2020-03-16 18:56 | W.ED.HA ---
HPI - Headache General: Chief Complaint: Headache Stated Complaint: headache Time Seen by Provider: 03/16/20 18:45 History of Present Illness: HPI Narrative: Patient comes in complain about her classic migraine she has plus ongoing ear pain when she has a headache. MD elicited complaint: migraine Pertinent past history: migraines Onset (ago): hour(s) Onset description: gradually Location: band-like Severity: moderate Quality & Timing: throbbing and similar to previous headaches Exacerbating factors: none Relieving factors: rest and dark room Associated symptoms: Reports no associated symptoms; Deny chest pain, fever(s), nausea, rash or vomiting Review of Systems Const: Denies: fever(s), chills or body aches Eyes: Denies: change in vision or blurry vision ENMT: Reports: other (Ear pain); Denies: throat pain or nasal congestion Card: Denies: chest pain or dyspnea on exertion Resp: Denies: dyspnea, productive cough or non-productive cough GI: Denies: abdominal pain, nausea or vomiting Musc: Denies: extremity pain Skin/Breast: Denies: rash Neuro: Reports: headache(s) Psych: Denies: anxiety or depression [place]/Lymph: Denies: easy bruising PFSH ED PFSH: Medical History (Updated 03/16/20 @ 18:56 by MAGO Welch) Migraines No pertinent past medical history Surgical History S/P appendectomy Social History Smoking and tobacco status: current every day smoker Alcohol intake: never Current occupational status: disabled Female Reproductive History: Date of last menstrual period: 10/09/19 Physical Exam Const: COMMON NORMALS: no acute distress, average body habitus and patient oriented x3 HENMT: COMMON NORMALS: normocephalic and TM's normal bilaterally HEAD & SCALP: normal to inspection and normocephalic FACE & SINUS: normal facial exam TYMPANIC MEMBRANE: TM's normal bilaterally Eye: COMMON NORMALS: conjunctivae normal GENERAL EYE: appearance normal, both eyes and all related structures CONJUNCTIVA: Yes conjunctivae normal Neck/C-Spine: COMMON NORMALS: no JVD Chest: COMMONS NORMALS: normal inspection of the chest Resp: COMMON NORMALS: normal respiratory effort and clear to auscultation bilaterally AUSCULTATION: clear to auscultation bilaterally Cardio: COMMON NORMALS: no JVD, regular rate and regular rhythm RATE: regular rate RHYTHM: regular rhythm GI: COMMON NORMALS: Normal to inspection, nondistended, normoactive bowel sounds present Extremity: COMMON NORMALS: normal to inspection and full ROM Neuro: COMMON NORMALS: patient oriented x3 Course Vital Signs: Vital signs: Vital Signs Temperature 98.7 F 03/16/20 18:44 Pulse Rate 98 03/16/20 18:44 Respiratory Rate 18 03/16/20 18:44 Blood Pressure 136/85 03/16/20 18:44 Pulse Oximetry 98 03/16/20 18:44 Discharge Plan Discharge Patient Disposition: Home Clinical Impression: Migraine Qualifiers: Migraine type: with aura Status migrainosus presence: with status migrainosus Intractability: intractable Qualified Code(s): G43.111 - Migraine with aura, intractable, with status migrainosus Condition: Stable Prescriptions: No Action (DME) CAM WALKER See Rx Instructions .ROUTE .MEDSUPPLY Qty: 1 RF: 0 (DME) Even Up See Rx Instructions .Route .MEDSUPPLY Qty: 1 RF: 0 diclofenac sodium [Voltaren] 1 % gel 4 gm TOPICAL QID Qty: 100 RF: 0 (DME) ASO ankle brace See Rx Instructions .Route .MEDSUPPLY Qty: 1 RF: 0 Flonase Allergy Relief 50 mcg/actuation spray,suspension 2 spray INTRANASAL BID PRN (Reason: nasal congestion) Qty: 18 RF: 0 Discharge Orders: Discharge Order (Routine); Ordered 03/16/20 Ordered By: Serge Lopez Referrals: Luis Narvaez NP [Primary Care Provider] - Discharge Diet: Usual diet Discharge Activity: Resume usual activity Patient Instructions: Migraine Headache (ED) Activity Restrictions/Additional Instructions: Aloe up as needed Coding Level of Care Code ED Career Transition Specialist for Chg Fwd Exam Comprehensive
[2020-03-16] MEDS: ketorolac 60 mg/2 mL INJ IM (19:36)
[2020-03-16] MEDS: promethazine 25 mg/mL SDV 1 mL IM (19:36)
== END 2020-03-16 20:02 | disposition home or self-care (01) ==
PROVIDERS: Emergency Provider Nurse Practitioner Family; PCP Nurse Practitioner Family
DX: G43.111 Migraine with aura, intractable, with status migrainosus (principal); F17.210 Nicotine dependence, cigarettes, uncomplicated
CPT/HCPCS: 12345; 96372; 99281; 99283; J1885; J2550

== ENCOUNTER 2020-04-20 03:24 | Emergency (ER) | payer MEDICARE, OTHER, SELFPAY ==
[2020-04-20 03:40] VITALS: BP 123/83; PULSE 102; RESP 17; TEMP 36.3; O2SAT 96; BMI 45.4
[2020-04-20] MEDS: promethazine 25 mg/mL SDV 1 mL IM (05:00)
[2020-04-20] MEDS: ketorolac 60 mg/2 mL INJ IM (05:01)
[2020-04-20 05:26] VITALS: BP 142/77; PULSE 74; RESP 16; O2SAT 95
--- NOTE | 2020-04-21 02:35 | ED_ITS ---
HPI - Headache General: Chief Complaint: Headache Stated Complaint: migraine Time Seen by Provider: 04/20/20 04:00 History of Present Illness: HPI Narrative: Alice Walker is a 40-year-old female who presents with several complaints. The first is that of a headache for the last couple of days. She gets migraines frequently, and has not been able to get rid of this 1. She complains of global head pain, but pain to her face as well. She states that she has had a bad tooth for quite some time, and the front right upper mouth. She is had some swelling. She has been trying to get into the dentist for this. She also complains of bilateral ear pain as well. She has not used anything for this. MD elicited complaint: headache and migraine Pertinent past history: migraines Onset (ago): day(s) Onset description: gradually and while at rest Location: diffuse Severity: moderate Quality & Timing: aching, throbbing, pain radiation and similar to previous headaches Context: occurred at rest Associated symptoms: Reports nausea and other; Deny chest pain, cough, fever(s), loss of vision, neck stiffness, rash or vomiting Review of Systems Const: Denies: fever(s) Eyes: Denies: change in vision or blurry vision ENMT: Reports: dental pain; Denies: swelling of lips/tongue, change in hearing, epistaxis, post nasal drip or sinus pain Card: Denies: chest pain Resp: Denies: dyspnea, productive cough, non-productive cough or wheezing GI: Reports: nausea; Denies: abdominal pain, vomiting or rectal pain : Denies: dysuria or hematuria Musc: Denies: neck pain, back pain or joint warmth Skin/Breast: Denies: rash, pruritus or erythema Neuro: Reports: headache(s); Denies: dizziness, vertigo or seizure-like activity Psych: Reports: anxiety PFSH ED PFSH: Medical History (Updated 04/20/20 @ 04:57 by Cl Wick DO) Migraines No pertinent past medical history Surgical History S/P appendectomy Social History Smoking and tobacco status: current every day smoker Alcohol intake: never Current occupational status: disabled Female Reproductive History: Date of last menstrual period: 10/09/19 Physical Exam Const: COMMON NORMALS: patient oriented x3 GENERAL APPEARANCE: well developed ORIENTATION/CONSCIOUSNESS: Yes oriented to person, Yes oriented to place and Yes oriented to time HENMT: COMMON NORMALS: normocephalic, external ears normal and Normal external nose present HEAD & SCALP: normocephalic FACE & SINUS: normal facial exam NOSE: Normal external nose present and No nasal discharge present EXTERNAL EAR: Yes external ears normal EXTERNAL AUDITORY CANAL: Abnormal EAC present EAC laterality: bilateral erythema, edema and EAC tenderness MOUTH: tongue normal TEETH & GINGIVA: Yes abnormal tooth and associated gingiva THROAT: posterior oropharynx normal; no peritonsillar mass Eye: COMMON NORMALS: Equal, round and reactive pupils present, EOMs intact bilaterally and conjunctivae normal EYELID: eyelids normal CONJUNCTIVA: Yes conjunctivae normal PUPIL: Yes Equal, round and reactive pupils present Neck/C-Spine: GENERAL: No tracheal deviation Chest: COMMONS NORMALS: normal inspection of the chest CHEST: No tenderness Resp: COMMON NORMALS: clear to auscultation bilaterally EFFORT & INSPECTION: No tachypneic, No respiratory distress, No retractions, No uses accessory muscles and No tracheal deviation AUSCULTATION: clear to auscultation bilaterally, no rhonchi, no wheezes and lung sounds not diminished Cardio: COMMON NORMALS: regular rate and regular rhythm RATE: regular rate RHYTHM: regular rhythm HEART SOUNDS: no murmurs PERIPHERAL PULSES: radial pulses present GI: INSPECTION: No abdominal distension AUSCULTATION: No Hyperactive bowel sounds present and No Hypoactive bowel sounds present PALPATION: No Guarding due to palpation present (GI) and No Rigid due to palpation PERCUSSION: no dullness to percussion and no tympanic to percussion Neuro: COMMON NORMALS: patient oriented x3, CN's II-XII intact bilaterally, moves all extremities and no focal motor deficits SENSORIUM/ORIENTATION: Yes oriented to person, Yes oriented to place and Yes oriented to time Psych: COMMON NORMALS: mental status grossly normal Skin: COMMON NORMALS: no rashes or lesions noted GENERAL SKIN EXAM: no rashes or lesions noted Course Vital Signs: Vital signs: Vital Signs Temperature 97.4 F L 04/20/20 03:40 Pulse Rate 74 04/20/20 05:26 Respiratory Rate 16 04/20/20 05:26 Blood Pressure 142/77 04/20/20 05:26 Pulse Oximetry 95 04/20/20 05:26 Discharge Plan Discharge Patient Disposition: Home Clinical Impression: Dental abscess Migraine Qualifiers: Migraine type: without aura Status migrainosus presence: without status migrainosus Intractability: not intractable Qualified Code(s): G43.009 - Migraine without aura, not intractable, without status migrainosus Otitis externa Qualifiers: Otitis externa type: diffuse Chronicity: acute Laterality: bilateral Qualified Code(s): H60.313 - Diffuse otitis externa, bilateral Condition: Stable Prescriptions: New ketorolac 10 mg tablet 10 mg PO Q8H PRN (Reason: pain) 3 Days RF: 0 Cortisporin-TC 3.3-3-10-0.5 mg/mL drops,suspension 1 applic EAR-BOTH Q6H Qty: 10 RF: 0 No Action (DME) CAM WALKER See Rx Instructions .ROUTE .MEDSUPPLY Qty: 1 RF: 0 (DME) Even Up See Rx Instructions .Route .MEDSUPPLY Qty: 1 RF: 0 diclofenac sodium [Voltaren] 1 % gel 4 gm TOPICAL QID Qty: 100 RF: 0 (DME) ASO ankle brace See Rx Instructions .Route .MEDSUPPLY Qty: 1 RF: 0 Flonase Allergy Relief 50 mcg/actuation spray,suspension 2 spray INTRANASAL BID PRN (Reason: nasal congestion) Qty: 18 RF: 0 Discharge Orders: Discharge Order (Routine); Ordered 04/20/20 Ordered By: Cl Wick Referrals: Luis Narvaez NP [Primary Care Provider] - 4-7 days Discharge Diet: Advance as tolerated Discharge Activity: Increase activity as tolerated Patient Instructions: Acute Headache (ED) Activity Restrictions/Additional Instructions: Return for fever greater than 100, worsening pain despite treatment, other concerning symptoms. Discharge Date/Time: 04/20/20 05:27 Coding Level of Care Code ED Plumbing Service Technician for Priscila Olmstead
== END 2020-04-20 05:27 | disposition home or self-care (01) ==
PROVIDERS: Emergency Provider Emergency Medicine; PCP Nurse Practitioner Family
DX: G43.009 Migraine without aura, not intractable, without status migrainosus (principal); H60.313 Diffuse otitis externa, bilateral; K04.7 Periapical abscess without sinus; F17.210 Nicotine dependence, cigarettes, uncomplicated
CPT/HCPCS: 12345; 96372; 99281; 99283; J1885; J2550

== ENCOUNTER 2020-05-01 11:06 | Emergency (ER) | payer MEDICARE, OTHER, SELFPAY ==
--- NOTE | 2020-05-01 11:07 | XR_ITS ---
WS: [id number] XR ankle RT min 3V* 20035 REASON FOR EXAM: injury FINDINGS: Minimal soft tissue swelling around the right ankle. Normal anatomic alignment. Normal articular intervals. No fracture or other focal bony abnormality. XR/XR ankle RT min 3V* 73313 IMPRESSION: No acute abnormality.
[2020-05-01 11:13] VITALS: BP 129/90; PULSE 92; RESP 14; TEMP 36.7; O2SAT 97; BMI 45.4
--- NOTE | 2020-05-01 11:42 | ED_ITS ---
HPI - Extremity Problem General: Chief complaint: Extremity Injury, Lower Stated complaint: R ANKLE INJURY Time Seen by Provider: 05/01/20 11:07 Source: patient Mode of arrival: ambulatory Limitations: no limitations History of Present Illness: HPI Narrative: 40-year-old female states she fractured her ankle earlier this year. She states that yesterday she was walking and inverted that left ankle again has had left ankle pain since then. She is able ambulate but states that it is painful and is worried she could have fractured again. Denies any other injuries. Denies any knee pain. Associated symptoms: Deny chest pain, fever(s) or rash Review of Systems Const: Denies: fever(s), chills, body aches or change in appetite Eyes: Denies: blurry vision or eye discomfort ENMT: Denies: throat pain or dental pain Card: Denies: chest pain Resp: Denies: dyspnea GI: Denies: abdominal pain, nausea, vomiting or diarrhea : Denies: dysuria Musc: Reports: joint pain Skin/Breast: Denies: rash Neuro: Denies: headache(s) Psych: Denies: depression [place]/Lymph: Denies: easy bruising All/Imm: Denies: urticaria PFSH ED 2 PFSH: Medical History Migraines No pertinent past medical history Surgical History S/P appendectomy Social History Smoking and tobacco status: current every day smoker Alcohol intake: never Current occupational status: disabled Female Reproductive History: Date of last menstrual period: 03/31/20 Physical Exam Const: COMMON NORMALS: no acute distress, patient oriented x3 and healthy appearing HENMT: COMMON NORMALS: normocephalic and atraumatic HEAD & SCALP: normocephalic and atraumatic Eye: COMMON NORMALS: Equal, round and reactive pupils present and EOMs intact bilaterally PUPIL: Yes Equal, round and reactive pupils present Neck/C-Spine: COMMON NORMALS: full ROM and supple Chest: COMMONS NORMALS: normal inspection of the chest and normal palpation of entire chest wall Resp: COMMON NORMALS: normal respiratory effort, No retractions, No use of accessory muscles and clear to auscultation bilaterally AUSCULTATION: clear to auscultation bilaterally Cardio: COMMON NORMALS: regular rate, regular rhythm and No murmurs present (Cardio) RATE: regular rate RHYTHM: regular rhythm GI: COMMON NORMALS: Normal to inspection, nondistended, normoactive bowel sounds present, Soft to palpation, non-tender and no masses PALPATION: Yes Soft to palpation Extremity: COMMON NORMALS: normal to inspection NARRATIVE EXTREMITY EXAM: Tenderness over left lateral ankle with no obvious deformity Neuro: COMMON NORMALS: patient oriented x3, moves all extremities and no focal motor deficits Psych: COMMON NORMALS: mental status grossly normal, Normal thought process present and cooperative THOUGHT PROCESS: Normal thought process present Skin: COMMON NORMALS: no rashes or lesions noted and no wounds GENERAL SKIN EXAM: no rashes or lesions noted Course Vital Signs: Vital signs: Vital Signs Temperature 98.1 F 05/01/20 11:13 Pulse Rate 92 05/01/20 11:13 Respiratory Rate 14 05/01/20 11:13 Blood Pressure 129/90 05/01/20 11:13 Pulse Oximetry 97 05/01/20 11:13 MDM - Extremity (Nontraumatic) MDM Narrative: Medical decision making narrative: Patient presents here with an ankle sprain from a fall. X-ray shows no fracture. Patient is to ice and weight-bear as tolerated. She is stable for discharge and return if worsening. Imaging Data^: Xray Ortho: Radiologist's impression: [address] [place] [address] XRay Report Signed Patient: Alice Cordon Unit #: [id number] : 1980 Age/Sex: 40 / F ADM Date: 05/01/20 Loc: ER Room/Bed: Attending Dr: Ordering Provider/Ordering MD: David Loco MD Date of Service: 05/01/20 Procedure(s): XR ankle RT min 3V* 61109 Accession Number(s): [id number] Report Number: [id number] WS: [id number] XR ankle RT min 3V* [id number] REASON FOR EXAM: injury FINDINGS: Minimal soft tissue swelling around the right ankle. Normal anatomic alignment. Normal articular intervals. No fracture or other focal bony abnormality. XR/XR ankle RT min 3V* [id number] IMPRESSION: No acute abnormality. Discharge Plan Discharge Patient Disposition: Home Clinical Impression: Ankle sprain and strain Condition: Stable Prescriptions: New Naprosyn 500 mg tablet 500 mg PO BID PRN (Reason: pain) Qty: 20 RF: 0 No Action (DME) CAM WALKER See Rx Instructions .ROUTE .MEDSUPPLY Qty: 1 RF: 0 (DME) Even Up See Rx Instructions .Route .MEDSUPPLY Qty: 1 RF: 0 diclofenac sodium [Voltaren] 1 % gel 4 gm TOPICAL QID Qty: 100 RF: 0 (DME) ASO ankle brace See Rx Instructions .Route .MEDSUPPLY Qty: 1 RF: 0 Flonase Allergy Relief 50 mcg/actuation spray,suspension 2 spray INTRANASAL BID PRN (Reason: nasal congestion) Qty: 18 RF: 0 Cortisporin-TC 3.3-3-10-0.5 mg/mL drops,suspension 1 applic EAR-BOTH Q6H Qty: 10 RF: 0 Discharge Orders: Discharge Order (Routine); Ordered 05/01/20 Ordered By: David Loco Referrals: Luis Narvaez NP [Primary Care Provider] - 1-3 days Discharge Diet: Advance as tolerated Discharge Activity: Resume usual activity Coding Level of Care Code ED Nib Inspector for Hortensi[employer] Fwd Exam Comprehensive
[2020-05-01] MEDS: HYDROcodone-acetaminophen 5-325 mg Tablet 1 TAB PO (12:25)
== END 2020-05-01 12:31 | disposition home or self-care (01) ==
PROVIDERS: Emergency Provider Emergency Medicine; PCP Nurse Practitioner Family
DX: S93.402A Sprain of unspecified ligament of left ankle, initial encounter (principal); S96.912A Strain of unspecified muscle and tendon at ankle and foot level, left foot, initial encounter; F17.210 Nicotine dependence, cigarettes, uncomplicated; X50.1XXA Overexertion from prolonged static or awkward postures, initial encounter
CPT/HCPCS: 12345; 73610; 99281; 99283

== ENCOUNTER 2020-05-11 21:50 | Emergency (ER) | payer MEDICARE, OTHER, SELFPAY ==
[2020-05-11 22:15] VITALS: BP 138/96; PULSE 102; RESP 17; TEMP 36.8; O2SAT 98; BMI 45.4
--- NOTE | 2020-05-11 22:37 | ECG_ITS ---
[facility] Test Date: 2020-05-11 Pat Name: Alice Cordon Department: Room: Gender: Female Talcer: : 1980 Requested By: Carlos Streeter Order Number: [id number] Sibley MD: Deepak Soto M.D. Measurements Intervals [place] Rate: 84 P: 56 NC: 172 QRS: 31 QRSD: 96 T: 42 QT: 370 QTc: 438 Interpretive Statements SINUS RHYTHM No previous ECG available for comparison Electronically Signed On 05-12-2020 19:42:48 CDT by Deepak Soto M.D. [id number]
--- NOTE | 2020-05-11 22:49 | W.ED.DIZZY ---
HPI - Dizziness General: Chief Complaint: Dizziness Stated Complaint: DIZZY YESTERDAY, CP TODAY Time Seen by Provider: 05/11/20 22:37 History of Present Illness: HPI Narrative: Patient is a 40-year-old female who comes to the ED with chest pain. Patient describes the chest pain is very mild and says it similar to her past episodes of anxiety. Patient says she is going through a lot of stress currently with purchasing a house and getting it fixed up and also taking care of multiple members family. Patient says she usually treats her anxiety with meditation but has been so busy she has not been able to take time out for that. Denies any palpitations, nausea/vomiting, abdominal pain, bladder or bowel symptoms. Associated symptoms: Reports chest pain; Denies chills, headache(s), nausea, nasal congestion, palpitations or vomiting Associated neuro symptoms: Deny numbness in extremities Review of Systems Const: Denies: fever(s), chills or fatigue Eyes: Denies: change in vision or eye discomfort ENMT: Denies: throat pain, odynophagia, nasal discharge or nasal congestion Card: Reports: chest pain; Denies: palpitations, edema, swelling of feet/ankles, dyspnea on exertion or orthopnea Resp: Denies: dyspnea, productive cough or non-productive cough GI: Denies: abdominal pain, nausea, vomiting, diarrhea, constipation or hematochezia : Denies: flank pain, dysuria or hematuria Musc: Denies: neck pain, back pain or extremity swelling Skin/Breast: Denies: rash or new lesions Neuro: Denies: headache(s), numbness in extremities or weakness in extremities Psych: Reports: anxiety [facility] ED PFSH: Medical History Migraines No pertinent past medical history Surgical History S/P appendectomy Social History Smoking and tobacco status: current every day smoker Alcohol intake: never Current occupational status: disabled Female Reproductive History: Date of last menstrual period: 03/31/20 Physical Exam Const: COMMON NORMALS: patient oriented x3 and alert GENERAL APPEARANCE: cooperative, comfortable and anxious NUTRITIONAL APPEARANCE: obese HENMT: COMMON NORMALS: normocephalic HEAD & SCALP: normocephalic TYMPANIC MEMBRANE: TM abnormal TM laterality: bilateral erythematous and with fluid behind the TM MOUTH: Normal oral and palatal mucosa present THROAT: posterior oropharynx normal and uvula midline Eye: COMMON NORMALS: Equal, round and reactive pupils present PUPIL: Yes Equal, round and reactive pupils present Neck/C-Spine: COMMON NORMALS: supple GENERAL: Yes normal visual inspection Resp: COMMON NORMALS: normal respiratory effort, No retractions, No use of accessory muscles and clear to auscultation bilaterally AUSCULTATION: clear to auscultation bilaterally Cardio: COMMON NORMALS: regular rate, regular rhythm, S1 normal heart sound present, S2 normal heart sound present, No gallops present (Cardio), No clicks present (Cardio), No murmurs present (Cardio) and Peripheral pulses 2+ throughout RATE: regular rate RHYTHM: regular rhythm HEART SOUNDS: S1 normal heart sound present and S2 normal heart sound present PERIPHERAL PULSES: Peripheral pulses 2+ throughout GI: COMMON NORMALS: Normal to inspection, nondistended, normoactive bowel sounds present, Soft to palpation, non-tender and no masses PALPATION: Yes Soft to palpation : COMMON NORMALS: Yes no CVA tenderness BLADDER/KIDNEY EXAM: Yes no CVA tenderness Back/Pelvis: COMMON NORMALS: no CVA tenderness Neuro: COMMON NORMALS: patient oriented x3 and moves all extremities SENSORIUM/ORIENTATION: Yes alert Psych: COMMON NORMALS: speech normal APPEARANCE: Yes grossly normal ACTIVITY/MOTOR BEHAVIOR: Yes appropriate eye contact SPEECH: Yes normal speech MOOD & AFFECT: Yes anxious (Patient appears stressed and was telling me all the tough situations that are going on in her life with taking care of family members and buying a new house and doing work on it.) Skin: GENERAL SKIN EXAM: dry skin Course Vital Signs: Vital signs: Vital Signs Temperature 98.3 F 05/11/20 22:15 Pulse Rate 88 05/11/20 23:33 Respiratory Rate 18 05/11/20 23:33 Blood Pressure 132/72 05/11/20 23:33 Pulse Oximetry 99 05/11/20 23:33 MDM - Dizziness MDM Narrative: Medical decision making narrative: Patient is a 40-year-old female comes to the ED with anxiety/chest pain. Patient says she has a history of anxiety and describes the chest pain is very mild and similar to her past anxiety attacks. During history and physical exam patient told me all about the different things stressing her out currently. She says she does not want any medications to help with her stress because she has a lot of medication allergies and she usually uses meditation to help with her anxiety. Physical exam was normal and unremarkable. Patient definitely appeared anxious and stressed out and was telling me all about her problems. EKG showed normal sinus rhythm with no ST segment elevation or depression seen. Patient diagnosed with anxiety told to follow-up with PCP in 7 to 10 days for reevaluation. She states she will go home and meditate to help with her anxiety tonight. Return to ED precautions given. Patient understood and agreed with plan. EKG Data^: EKG 1: Attestation: I personally reviewed and interpreted this EKG as follows: EKG interpretation date: 05/11/20 Interpretation: Sinus rhythm, 84 bpm, no ST segment elevation or depression seen. Discharge Plan Discharge Patient Disposition: Home Clinical Impression: Anxiety Acute otitis media Qualifiers: Otitis media type: serous Laterality: bilateral Recurrence: non-recurrent Qualified Code(s): H65.03 - Acute serous otitis media, bilateral Condition: Stable Prescriptions: New cephalexin 500 mg capsule 500 mg PO BID 10 Days Qty: 20 RF: 0 No Action (DME) CAM WALKER See Rx Instructions .ROUTE .MEDSUPPLY Qty: 1 RF: 0 (DME) Even Up See Rx Instructions .Route .MEDSUPPLY Qty: 1 RF: 0 diclofenac sodium [Voltaren] 1 % gel 4 gm TOPICAL QID Qty: 100 RF: 0 (DME) ASO ankle brace See Rx Instructions .Route .MEDSUPPLY Qty: 1 RF: 0 Naprosyn 500 mg tablet 500 mg PO BID PRN (Reason: pain) Qty: 20 RF: 0 Flonase Allergy Relief 50 mcg/actuation spray,suspension 2 spray INTRANASAL BID PRN (Reason: nasal congestion) Qty: 18 RF: 0 Cortisporin-TC 3.3-3-10-0.5 mg/mL drops,suspension 1 applic EAR-BOTH Q6H Qty: 10 RF: 0 Discharge Orders: Discharge Order (Routine); Ordered 05/11/20 Ordered By: Carlos Streeter Referrals: Luis Narvaez NP [Primary Care Provider] - Discharge Diet: Regular Discharge Activity: Increase activity as tolerated Patient Instructions: Otitis Media - Adult, Anxiety (ED) Activity Restrictions/Additional Instructions: Follow-up with medical provider as directed in 7-10 days. Take medications as prescribed. Return to the ER or your medical provider if condition worsens. Please read and understand discharge instructions. If any questions, please ask. 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
[2020-05-11 23:31] VITALS: BP 132/72; PULSE 88; RESP 18; O2SAT 99
[2020-05-11 23:33] VITALS: BP 132/72; PULSE 88; RESP 18; O2SAT 99
== END 2020-05-11 23:34 | disposition home or self-care (01) ==
PROVIDERS: Emergency Provider Physician Assistant; PCP Nurse Practitioner Family
DX: F41.9 Anxiety disorder, unspecified (principal); H65.03 Acute serous otitis media, bilateral; F17.210 Nicotine dependence, cigarettes, uncomplicated
CPT/HCPCS: 12345; 93005; 99282

== ENCOUNTER 2020-05-19 21:50 | Emergency (ER) | payer MEDICARE, OTHER, SELFPAY ==
[2020-05-19 22:03] VITALS: BP 145/85; PULSE 96; RESP 18; TEMP 36.5; O2SAT 100; BMI 45.4
--- NOTE | 2020-05-19 22:32 | W.ED.HA ---
HPI - Headache General: Chief Complaint: Headache Stated Complaint: santiago Time Seen by Provider: 05/19/20 22:18 History of Present Illness: HPI Narrative: 40-year-old female patient presents to the emergency department with complaints of migraine headache. She reports migraine is triggered after a stressful event that occurred earlier today. She reports photophobia, nausea, states is not the worst headache she has ever experienced. She is requesting Toradol and Phenergan for pain. She denies trauma/injury. MD elicited complaint: headache and migraine Onset (ago): hour(s) (6) Onset description: gradually Location: parietal Severity: moderate Quality & Timing: aching, throbbing and squeezing Exacerbating factors: light and noise Relieving factors: rest and dark room Context: other (stress) Associated symptoms: Reports no associated symptoms, nausea, photophobia and sound sensitivity; Deny chest pain, diaphoresis, fever(s), rash or vomiting Treatments prior to arrival: none Review of Systems General: Reports: 10 or more systems reviewed and unremarkable except in HPI and below Const: Denies: fever(s), chills or diaphoresis Eyes: Denies: blurry vision or eye redness ENMT: Denies: throat pain, dental pain or disequilibrium Card: Denies: chest pain, palpitations or irregular heart rhythm Resp: Denies: dyspnea, productive cough, non-productive cough or wheezing GI: Reports: nausea; Denies: abdominal pain or vomiting : Denies: difficulty voiding or dysuria Musc: Denies: back pain Skin/Breast: Denies: rash or pruritus Neuro: Reports: headache(s) and difficulty walking (chronic); Denies: weakness in extremities or behavioral changes [place]/Lymph: Denies: easy bruising PFSH ED PFSH: Medical History (Updated 05/19/20 @ 22:37 by [facility] Peter) Migraines No pertinent past medical history Surgical History S/P appendectomy Social History Smoking and tobacco status: current every day smoker Alcohol intake: never Current occupational status: disabled Female Reproductive History: Date of last menstrual period: 03/31/20 Physical Exam Const: COMMON NORMALS: no acute distress, patient oriented x3, healthy appearing and alert GENERAL APPEARANCE: cooperative, well kempt, anxious and well hydrated NUTRITIONAL APPEARANCE: obese ORIENTATION/CONSCIOUSNESS: Yes awake, Yes oriented to person, Yes oriented to place and Yes oriented to time HENMT: COMMON NORMALS: normocephalic, atraumatic, EAC's normal, TM's normal bilaterally, Normal external nose present and moist oral mucous membranes HEAD & SCALP: normocephalic, atraumatic and scalp tenderness NOSE: Normal external nose present EXTERNAL AUDITORY CANAL: EAC's normal TYMPANIC MEMBRANE: TM's normal bilaterally MOUTH: Normal oral and palatal mucosa present THROAT: posterior oropharynx normal Eye: COMMON NORMALS: Equal, round and reactive pupils present and EOMs intact bilaterally GENERAL EYE: appearance normal, both eyes and all related structures PUPIL: Yes Equal, round and reactive pupils present DIRECT OPHTHALMOSCOPY: Yes photophobia Neck/C-Spine: COMMON NORMALS: full ROM, no lymphadenopathy and no meningeal signs GENERAL: Yes normal visual inspection and Yes trachea midline CERVICAL SPINE: Yes cervical ROM normal, No Cervical spine tenderness and No Paracervical muscle tenderness Lymph: LYMPHATIC: no lymphadenopathy noted Chest: COMMONS NORMALS: normal inspection of the chest Resp: COMMON NORMALS: normal respiratory effort and clear to auscultation bilaterally AUSCULTATION: clear to auscultation bilaterally Cardio: COMMON NORMALS: regular rhythm, S1 normal heart sound present and S2 normal heart sound present RHYTHM: regular rhythm HEART SOUNDS: S1 normal heart sound present and S2 normal heart sound present GI: COMMON NORMALS: Soft to palpation and non-tender INSPECTION: Yes normal to inspection PALPATION: Yes Soft to palpation : COMMON NORMALS: Yes no CVA tenderness BLADDER/KIDNEY EXAM: Yes no CVA tenderness Back/Pelvis: COMMON NORMALS: no CVA tenderness, thoracic and lumbar spine normal to inspection and no thoracic nor lumbar tenderness Extremity: COMMON NORMALS: normal to inspection and capillary refill normal Neuro: MORGAN COMA SCALE: document GCS findings Morgan coma scale eye opening: Spontaneous [place] coma scale verbal response: Orientated Morgan coma scale motor response: Obey commands [place] coma scale total score: 15 COMMON NORMALS: patient oriented x3 and no focal motor deficits SENSORIUM/ORIENTATION: Yes alert, Yes oriented to person, Yes oriented to place and Yes oriented to time MENINGEAL SIGNS: Yes no meningeal signs, No nuccal rigidity and No Kernig's sign presnet SPEECH: speech normal MOTOR EXAM: 5/5 motor strength present throughout and No Pronator motor function present Right pupil size (mm): 4 Left pupil size (mm): 4 Psych: COMMON NORMALS: mental status grossly normal, Normal thought process present, cooperative and normal affect APPEARANCE: Yes well kempt ACTIVITY/MOTOR BEHAVIOR: Yes appropriate eye contact SPEECH: Yes rapid MOOD & AFFECT: Yes anxious and Yes irritable THOUGHT PROCESS: Normal thought process present THOUGHT CONTENT: Yes Normal thought content present ATTENTION/CONCENTRATION: Yes attention grossly intact MEMORY/COGNITION: Yes memory grossly intact INSIGHT: Good insight present (Psych) JUDGEMENT: Good judgement present (Psych) Skin: COMMON NORMALS: no rashes or lesions noted and turgor normal GENERAL SKIN EXAM: no rashes or lesions noted and turgor normal Course Vital Signs: Vital signs: Vital Signs Temperature 97.7 F 05/19/20 22:03 Pulse Rate 82 05/19/20 22:59 Respiratory Rate 18 05/19/20 22:59 Blood Pressure 134/86 05/19/20 22:59 Pulse Oximetry 94 05/19/20 22:59 Discharge Plan Discharge Patient Disposition: Home Clinical Impression: Migraines Qualifiers: Migraine type: without aura Status migrainosus presence: with status migrainosus Intractability: intractable Qualified Code(s): G43.011 - Migraine without aura, intractable, with status migrainosus Condition: Stable Prescriptions: No Action (DME) CAM WALKER See Rx Instructions .ROUTE .MEDSUPPLY Qty: 1 RF: 0 (DME) Even Up See Rx Instructions .Route .MEDSUPPLY Qty: 1 RF: 0 diclofenac sodium [Voltaren] 1 % gel 4 gm TOPICAL QID Qty: 100 RF: 0 (DME) ASO ankle brace See Rx Instructions .Route .MEDSUPPLY Qty: 1 RF: 0 Naprosyn 500 mg tablet 500 mg PO BID PRN (Reason: pain) Qty: 20 RF: 0 Flonase Allergy Relief 50 mcg/actuation spray,suspension 2 spray INTRANASAL BID PRN (Reason: nasal congestion) Qty: 18 RF: 0 Cortisporin-TC 3.3-3-10-0.5 mg/mL drops,suspension 1 applic EAR-BOTH Q6H Qty: 10 RF: 0 cephalexin 500 mg capsule 500 mg PO BID 10 Days Qty: 20 RF: 0 Discharge Orders: Discharge Order (Routine); Ordered 05/19/20 Ordered By: Lauren Sharif Referrals: Luis Narvaez NP [Primary Care Provider] - Discharge Diet: Usual diet Discharge Activity: Limit activity as instructed Patient Instructions: Migraine Headache (ED), Acute Headache (ED) Activity Restrictions/Additional Instructions: Return to the emergency department if you develop the worst headache of your life Rest at home today Avoid stressful situations Return to the emergency department if you develop other concerning symptoms. Avoid migraine triggers Discharge Date/Time: 05/19/20 22:55 Coding Level of Care Code ED Endocrinology Nurse for Chg Fwd Exam Comprehensive
[2020-05-19 22:35] VITALS: BP 141/106; PULSE 96; RESP 18; O2SAT 94
[2020-05-19] MEDS: ketorolac 60 mg/2 mL INJ IM (22:43)
[2020-05-19] MEDS: promethazine 25 mg/mL SDV 1 mL IM (22:45)
[2020-05-19 22:59] VITALS: BP 134/86; PULSE 82; RESP 18; O2SAT 94
== END 2020-05-19 22:55 | disposition home or self-care (01) ==
PROVIDERS: Emergency Provider Nurse Practitioner Family; PCP Nurse Practitioner Family
DX: G43.011 Migraine without aura, intractable, with status migrainosus (principal); F17.210 Nicotine dependence, cigarettes, uncomplicated
CPT/HCPCS: 12345; 96372; 99281; 99283; J1885; J2550

== ENCOUNTER 2020-06-12 19:19 | Emergency (ER) | payer MEDICARE, OTHER, SELFPAY ==
[2020-06-12 20:29] VITALS: BP 136/90; PULSE 90; RESP 16; TEMP 36.7; O2SAT 97; BMI 45.4
[2020-06-12] MEDS: ketorolac 60 mg/2 mL INJ IM (20:55)
[2020-06-12] MEDS: promethazine 25 mg/mL SDV 1 mL IM (20:55)
--- NOTE | 2020-06-12 20:56 | W.ED.HA ---
HPI - Headache General: Chief Complaint: Headache Stated Complaint: severe head pain Time Seen by Provider: 06/12/20 20:39 History of Present Illness: HPI Narrative: 40-year-old female patient presents to the emergency department with onset of headache, migraine headache x4 days. She reports not improving, worsened this [place]. She is requesting 60mg of Toradol and 25mg of Phenergan, reports similar to previous episodes, reports no change in pain. She reports phonophobia and photophobia. Denies vomiting. But reports nausea MD elicited complaint: headache Onset (ago): day(s) (4) Onset description: gradually Location: parietal Severity: similar to previous episodes Pain scale (0-10): 9 Quality & Timing: aching, throbbing, pulsatile, squeezing, progressively worsening and similar to previous headaches Exacerbating factors: light and noise Relieving factors: NSAIDs and dark room Associated symptoms: Reports nausea and photophobia; Deny chest pain, diaphoresis, fever(s) or rash Treatments prior to arrival: acetaminophen and ibuprofen Review of Systems General: Reports: 10 or more systems reviewed and unremarkable except in HPI and below Const: Denies: fever(s), chills or diaphoresis Eyes: Denies: blurry vision or eye redness ENMT: Denies: throat pain, dental pain or disequilibrium Card: Denies: chest pain, palpitations or irregular heart rhythm Resp: Denies: dyspnea, productive cough, non-productive cough or wheezing GI: Reports: nausea : Denies: difficulty voiding or dysuria Musc: Denies: back pain Skin/Breast: Denies: rash or pruritus Neuro: Denies: headache(s), weakness in extremities or behavioral changes [place]/Lymph: Denies: easy bruising [facility] ED PFSH: Medical History (Updated 06/12/20 @ 21:02 by [facility] Peter) Migraines No pertinent past medical history Surgical History S/P appendectomy Social History Smoking and tobacco status: current every day smoker Alcohol intake: never Current occupational status: disabled Female Reproductive History: Date of last menstrual period: 03/31/20 Physical Exam Const: COMMON NORMALS: no acute distress, patient oriented x3, healthy appearing and alert GENERAL APPEARANCE: cooperative, comfortable and well hydrated HENMT: COMMON NORMALS: normocephalic, atraumatic, Normal external nose present and moist oral mucous membranes HEAD & SCALP: normocephalic, atraumatic and scalp tenderness (Bilateral parietal); no Temporal artery tenderness present FACE & SINUS: normal facial exam, sinuses nontender and face symmetric NOSE: Normal external nose present MOUTH: Normal oral and palatal mucosa present THROAT: posterior oropharynx normal Eye: COMMON NORMALS: Equal, round and reactive pupils present and EOMs intact bilaterally GENERAL EYE: appearance normal, both eyes and all related structures PUPIL: Yes Equal, round and reactive pupils present DIRECT OPHTHALMOSCOPY: Yes photophobia Neck/C-Spine: COMMON NORMALS: full ROM and no lymphadenopathy GENERAL: Yes normal visual inspection and Yes trachea midline CERVICAL SPINE: Yes cervical ROM normal, No Cervical spine tenderness, No Paracervical muscle tenderness and No Trapezius muscle tenderness Lymph: LYMPHATIC: no lymphadenopathy noted Chest: COMMONS NORMALS: normal inspection of the chest and normal palpation of entire chest wall Resp: COMMON NORMALS: normal respiratory effort and clear to auscultation bilaterally AUSCULTATION: clear to auscultation bilaterally Cardio: COMMON NORMALS: regular rhythm, S1 normal heart sound present, S2 normal heart sound present and Peripheral pulses 2+ throughout RHYTHM: regular rhythm HEART SOUNDS: S1 normal heart sound present and S2 normal heart sound present PERIPHERAL PULSES: Peripheral pulses 2+ throughout GI: COMMON NORMALS: Soft to palpation and non-tender INSPECTION: Yes normal to inspection PALPATION: Yes Soft to palpation : COMMON NORMALS: Yes no CVA tenderness BLADDER/KIDNEY EXAM: Yes no CVA tenderness Back/Pelvis: COMMON NORMALS: no CVA tenderness and thoracic and lumbar spine normal to inspection Extremity: COMMON NORMALS: normal to inspection and capillary refill normal Neuro: MORGAN COMA SCALE: document GCS findings [place] coma scale eye opening: Spontaneous [place] coma scale verbal response: Orientated [place] coma scale motor response: Obey commands [place] coma scale total score: 15 COMMON NORMALS: patient oriented x3 and no focal motor deficits SENSORIUM/ORIENTATION: Yes alert SPEECH: speech normal Psych: COMMON NORMALS: mental status grossly normal, Normal thought process present and cooperative ACTIVITY/MOTOR BEHAVIOR: Yes appropriate eye contact THOUGHT PROCESS: Normal thought process present Skin: COMMON NORMALS: no rashes or lesions noted and turgor normal GENERAL SKIN EXAM: no rashes or lesions noted and turgor normal Course Vital Signs: Vital signs: Vital Signs Temperature 98.1 F 06/12/20 20:29 Pulse Rate 90 06/12/20 20:29 Respiratory Rate 16 06/12/20 20:29 Blood Pressure 136/90 06/12/20 20:29 Pulse Oximetry 97 06/12/20 20:29 Discharge Plan Discharge Patient Disposition: Home Clinical Impression: Migraine Qualifiers: Migraine type: without aura Status migrainosus presence: with status migrainosus Intractability: intractable Qualified Code(s): G43.011 - Migraine without aura, intractable, with status migrainosus Condition: Stable Prescriptions: No Action (DME) CAM WALKER See Rx Instructions .ROUTE .MEDSUPPLY Qty: 1 RF: 0 (DME) Even Up See Rx Instructions .Route .MEDSUPPLY Qty: 1 RF: 0 diclofenac sodium [Voltaren] 1 % gel 4 gm TOPICAL QID Qty: 100 RF: 0 (DME) ASO ankle brace See Rx Instructions .Route .MEDSUPPLY Qty: 1 RF: 0 Naprosyn 500 mg tablet 500 mg PO BID PRN (Reason: pain) Qty: 20 RF: 0 Flonase Allergy Relief 50 mcg/actuation spray,suspension 2 spray INTRANASAL BID PRN (Reason: nasal congestion) Qty: 18 RF: 0 Cortisporin-TC 3.3-3-10-0.5 mg/mL drops,suspension 1 applic EAR-BOTH Q6H Qty: 10 RF: 0 Discharge Orders: Discharge Order (Routine); Ordered 06/12/20 Ordered By: Lauren Sharif Referrals: Luis Narvaez NP [Primary Care Provider] - Discharge Diet: Advance as tolerated and Clear Liquid Discharge Activity: Limit activity as instructed Patient Instructions: Headache - Migraine (Adult) Activity Restrictions/Additional Instructions: Return to the emergency department if you develop the worst headache of your life You have received medication that can make you drowsy, please go home and rest Rest today and tomorrow at home Cool compresses to the head may help with pain Return to the emergency department if you develop arm or leg weakness, bowel incontinence or other concerning symptoms such as fever or neck stiffness Coding Level of Care Code ED Offender Employment Specialist for Chg Fwd Exam Comprehensive
== END 2020-06-13 08:16 | disposition home or self-care (01) ==
PROVIDERS: Emergency Provider Nurse Practitioner Family; PCP Nurse Practitioner Family
DX: G43.011 Migraine without aura, intractable, with status migrainosus (principal); F17.210 Nicotine dependence, cigarettes, uncomplicated
CPT/HCPCS: 12345; 99281; 99283; J1885; J2550

== ENCOUNTER 2020-07-11 13:27 | Outpatient (CLI) | payer MEDICARE, OTHER, SELFPAY ==
--- NOTE | 2020-07-11 13:45 | XR_ITS ---
WS: [id number] Right hand, 3 views, 07/11/2020 Clinical Data: HAND PAIN, RIGHT Comparison: None. Findings: No fractures or dislocations are seen. The soft tissues are unremarkable. The joint space s are normal XR/XR hand RT min 3V* [id number] Impression: Negative right hand.
--- NOTE | 2020-07-11 13:45 | XR_ITS ---
WS: [id number] Right elbow, 3 views, 07/11/2020 Clinical Data: ARM PAIN Comparison: None. Findings: No fractures or dislocations are seen. The radial head is normal. The soft tissues are unremarkable. XR/XR elbow RT min 3V* [id number] Impression: Negative right elbow.
--- NOTE | 2020-07-11 13:45 | XR_ITS ---
WS: [id number] Thoracic spine, 3 views, 07/11/2020 Clinical Data: THORACIC BACK PAIN Comparison: None. Findings: No compression fractures are seen. The disc heights are normal. The paravertebral regions are normal. XR/XR thoracic spine 3V* [id number] Impression: Negative thoracic spine.
--- NOTE | 2020-07-11 13:45 | XR_ITS ---
WS: [id number] Right shoulder, 2 views, 07/11/2020 Clinical Data: SHOULDER PAIN Comparison: None. Findings: No fractures or dislocations are seen. The AC joint is normal. The adjacent right clavicle, right sca pula and ribs are normal. The soft tissues are unremarkable. XR/XR shoulder RT min 2V* [id number] Impression: Negative right shoulder.
== END 2020-07-11 13:28 | disposition home or self-care (01) ==
LOC: RADWPI 13:32
PROVIDERS: PCP Nurse Practitioner Family; Visit Provider Nurse Practitioner Family
DX: M79.641 Pain in right hand (principal); M79.601 Pain in right arm; M25.511 Pain in right shoulder; M54.6 Pain in thoracic spine
CPT/HCPCS: 72072; 73030; 73080; 73130

== ENCOUNTER 2020-08-16 20:26 | Emergency (ER) | payer MEDICARE, OTHER, SELFPAY ==
[2020-08-16 20:33] VITALS: BP 141/82; PULSE 94; RESP 16; TEMP 37.2; O2SAT 98; BMI 44.6
--- NOTE | 2020-08-16 21:29 | XRR_ITS ---
PROCEDURE INFORMATION: Exam: XR Right Shoulder Exam date and time: 08/16/2020 9:32 PM Age: 40 years old Clinical indication: Pain; Shoulder; Right; Additional info: Right shoulder pain TECHNIQUE: Imaging protocol: XR Right shoulder. Views: 2 or more views. COMPARISON: CR XR shoulder RT min 2V* [id number] 07/11/2020 1:54 PM FINDINGS: Bones/joints: Normal. Soft tissues: Normal. XR/XR shoulder RT min 2V* [id number] IMPRESSION: No acute findings. No significant change from previous
[2020-08-16 23:00] LABS: Glucose Point of Care 101 mg/dL (70-110)
--- NOTE | 2020-08-16 23:35 | ED_ITS ---
HPI - Extremity Problem General: Chief complaint: Extremity Injury, Upper Stated complaint: right shoulder pain Time Seen by Provider: 08/16/20 20:39 Source: patient Mode of arrival: ambulatory Limitations: no limitations History of Present Illness: HPI Narrative: 40-year-old female is very well- known to the ER. She states she fell back in November and has had right shoulder pain since then. She states she is scheduled for an MRI earlier this month but her insurance had switched and she did not get it. She states she she is working [employer] this next week to get it rescheduled. She states that she is here is the pain is worsened and she needs a shot of Toradol. States pain is a 5 out of 10. She is able to move that arm. She denies any new injuries. MD Complaint: extremity pain Associated symptoms: Deny chest pain, fever(s) or rash Review of Systems Const: Denies: fever(s), chills, body aches or change in appetite Eyes: Denies: blurry vision or eye discomfort ENMT: Denies: throat pain or dental pain Card: Denies: chest pain Resp: Denies: dyspnea GI: Denies: abdominal pain, nausea, vomiting or diarrhea : Denies: dysuria Musc: Reports: joint pain Skin/Breast: Denies: rash Neuro: Denies: headache(s) Psych: Denies: depression [place]/Lymph: Denies: easy bruising All/Imm: Denies: urticaria PFSH ED PFSH: Medical History (Updated 08/16/20 @ 23:34 by David Loco MD) Migraines No pertinent past medical history Surgical History S/P appendectomy Social History Smoking and tobacco status: current every day smoker Alcohol intake: never Current occupational status: disabled Female Reproductive History: Date of last menstrual period: 03/31/20 Physical Exam Const: COMMON NORMALS: no acute distress, patient oriented x3 and healthy appearing HENMT: COMMON NORMALS: normocephalic and atraumatic HEAD & SCALP: normocephalic and atraumatic Eye: COMMON NORMALS: Equal, round and reactive pupils present and EOMs intact bilaterally PUPIL: Yes Equal, round and reactive pupils present Neck/C-Spine: COMMON NORMALS: full ROM and supple Chest: COMMONS NORMALS: normal inspection of the chest and normal palpation of entire chest wall Resp: COMMON NORMALS: normal respiratory effort, No retractions, No use of accessory muscles and clear to auscultation bilaterally AUSCULTATION: clear to auscultation bilaterally Cardio: COMMON NORMALS: regular rate, regular rhythm and No murmurs present (Cardio) RATE: regular rate RHYTHM: regular rhythm GI: COMMON NORMALS: Normal to inspection, nondistended, normoactive bowel sounds present, Soft to palpation, non-tender and no masses PALPATION: Yes Soft to palpation Extremity: COMMON NORMALS: normal to inspection and full ROM NARRATIVE EXTREMITY EXAM: Slight tenderness over right shoulder no obvious deformity distal pulses intact. She has full range of motion. Neuro: COMMON NORMALS: patient oriented x3, moves all extremities and no focal motor deficits Psych: COMMON NORMALS: mental status grossly normal, Normal thought process present and cooperative THOUGHT PROCESS: Normal thought process present Skin: COMMON NORMALS: no rashes or lesions noted and no wounds GENERAL SKIN EXAM: no rashes or lesions noted Course Vital Signs: Vital signs: Vital Signs Temperature 98.9 F 08/16/20 20:33 Pulse Rate 94 08/16/20 20:33 Respiratory Rate 16 08/16/20 20:33 Blood Pressure 141/82 08/16/20 20:33 Pulse Oximetry 98 08/16/20 20:33 MDM - Extremity (Nontraumatic) MDM Narrative: Medical decision making narrative: Patient presents for shoulder pain. She refused a shoulder x-ray and states she just wanted pain meds. Patient given IM Toradol and will discharge with Naprosyn. She is to follow-up BUN/creatinine scheduled next week. Lab Data: Labs: Lab Results 08/16/20 Range/Units 22:54 POC Glucose 101 (70-110) mg/dL Discharge Plan Discharge Patient Disposition: Home Clinical Impression: Shoulder pain, right Qualifiers: Chronicity: chronic Qualified Code(s): M25.511 - Pain in right shoulder Condition: Stable Prescriptions: New Naprosyn 500 mg tablet 500 mg PO BID PRN (Reason: pain) Qty: 20 RF: 0 Zofran 4 mg tablet 4 mg PO QID PRN (Reason: nausea and vomiting) Qty: 14 RF: 0 No Action (DME) CAM WALKER See Rx Instructions .ROUTE .MEDSUPPLY Qty: 1 RF: 0 (DME) Even Up See Rx Instructions .Route .MEDSUPPLY Qty: 1 RF: 0 diclofenac sodium [Voltaren] 1 % gel 4 gm TOPICAL QID Qty: 100 RF: 0 (DME) ASO ankle brace See Rx Instructions .Route .MEDSUPPLY Qty: 1 RF: 0 Naprosyn 500 mg tablet 500 mg PO BID PRN (Reason: pain) Qty: 20 RF: 0 Flonase Allergy Relief 50 mcg/actuation spray,suspension 2 spray INTRANASAL BID PRN (Reason: nasal congestion) Qty: 18 RF: 0 Cortisporin-TC 3.3-3-10-0.5 mg/mL drops,suspension 1 applic EAR-BOTH Q6H Qty: 10 RF: 0 Discharge Orders: Discharge ED (Routine); Ordered 08/16/20 Ordered By: David Loco Referrals: Luis Narvaez NP [Primary Care Provider] - 1-3 days Discharge Diet: Advance as tolerated Discharge Activity: Resume usual activity Patient Instructions: Shoulder Sprain (ED) Coding Level of Care Code ED E Commerce Architect for Priscila Olmstead
[2020-08-16 23:37] VITALS: PULSE 78
[2020-08-16] MEDS: ketorolac 60 mg/2 mL INJ IM (23:41)
[2020-08-16] MEDS: promethazine 25 mg/mL SDV 1 mL IM (23:42)
--- NOTE | 2020-08-17 00:18 | PC.NURSE ---
Pt placed in sling for R shoulder pain all SMcs intact before and after procedure.
[2020-08-17 00:22] VITALS: BP 114/78; PULSE 88; RESP 16; O2SAT 98
--- NOTE | 2020-08-19 10:51 | DCPLANNER ---
senior logistics manager had message to schedule a follow up appointment for patient with ortho. senior logistics manager called the ortho clinic, spoke with Acacia, gave clinic patients information. senior logistics manager was told that patients information would be printed and reviewed. Clinic will call patient with appointment information.
--- NOTE | 2020-08-20 07:25 | DCPLANNER ---
Patient has a follow up appointment scheduled for Thursday, August 27, 2020 at 2:[address] Estrella. Clinic will call patient with appointment information.
--- NOTE | 2020-09-26 07:39 | DCPLANNER ---
Patient had a follow up appointment scheduled with ortho, with Dr. Estrella - patient did attend the appointment.
== END 2020-08-17 00:23 | disposition home or self-care (01) ==
PROVIDERS: Nurse Practitioner Family; Emergency Provider Emergency Medicine; PCP Nurse Practitioner Family
DX: G89.29 Other chronic pain (principal); M25.511 Pain in right shoulder; F17.210 Nicotine dependence, cigarettes, uncomplicated; Z79.899 Other long term (current) drug therapy
CPT/HCPCS: 12345; 36416; 73030; 82962; 96372; 99281; 99283; J1885; J2550

== ENCOUNTER 2020-09-17 21:40 | Emergency (ER) | payer MEDICARE, OTHER, SELFPAY ==
[2020-09-17 21:56] VITALS: BP 151/91; PULSE 99; RESP 18; O2SAT 98; BMI 44.6
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
[2020-09-17 22:59] VITALS: PULSE 78; RESP 18; O2SAT 98
[2020-09-17] MEDS: ketorolac 60 mg/2 mL INJ IM (22:59)
[2020-09-17] MEDS: promethazine 25 mg/mL SDV 1 mL IM (22:59)
== END 2020-09-17 23:00 | disposition home or self-care (01) ==
PROVIDERS: Emergency Provider Emergency Medicine; PCP Nurse Practitioner Family
DX: G43.909 Migraine, unspecified, not intractable, without status migrainosus (principal); F17.210 Nicotine dependence, cigarettes, uncomplicated
CPT/HCPCS: 96372; 99283; J1885; J2550

== ENCOUNTER 2020-10-09 15:39 | Emergency (ER) | payer MEDICARE, OTHER, SELFPAY ==
[2020-10-09 15:50] VITALS: BP 147/97; PULSE 90; RESP 16; TEMP 36.4; O2SAT 98; BMI 44.6
--- NOTE | 2020-10-09 16:15 | ED_ITS ---
HPI - Headache General: Chief Complaint: Headache Stated Complaint: MIGRAINE Time Seen by Provider: 10/09/20 15:58 Source: patient Mode of arrival: ambulatory Limitations: no limitations History of Present Illness: HPI Narrative: Patient is a 40-year-old female who presents to ED today with complaint of a migraine headache over the past 2 days. Patient states she has a longstanding history of migraine headaches. She states this headache feels identical. She tells me she cannot take any form of prophylactic or abortive medication therapies as she has too many allergies to everything . Patient is requesting IM 25mg Phenergan and IM 60mg Toradol as she has had these medications previously and they have been effective for relieving her migraine headache. MD elicited complaint: headache and migraine Pertinent past history: migraines Onset (ago): day(s) Onset description: gradually Exacerbating factors: light Relieving factors: rest Associated symptoms: Reports no associated symptoms; Deny chest pain, confusion, fever(s), malaise, nausea, rash or vomiting Review of Systems Const: Denies: fever(s), chills, body aches, fatigue or malaise Eyes: Reports: photophobia; Denies: change in vision, blurry vision, floaters or seeing flashes Card: Denies: chest pain Resp: Denies: dyspnea GI: Denies: nausea or vomiting Musc: Denies: neck pain or back pain Skin/Breast: Denies: rash Neuro: Reports: headache(s); Denies: numbness in extremities, weakness in extremities, sensory changes, difficulty walking, frequent falls, dizziness, confusion or Slurred speech present [facility] ED PFSH: Medical History (Updated 10/09/20 @ 16:23 by MARTI Irving) Migraines No pertinent past medical history Surgical History S/P appendectomy Social History Smoking and tobacco status: current every day smoker Alcohol intake: never Current occupational status: disabled Female Reproductive History: Date of last menstrual period: 09/16/20 Physical Exam Const: COMMON NORMALS: no acute distress, patient oriented x3, no limitations and alert GENERAL APPEARANCE: cooperative NUTRITIONAL APPEARANCE: obese ORIENTATION/CONSCIOUSNESS: Yes awake, Yes oriented to person, Yes oriented to place and Yes oriented to time HENMT: COMMON NORMALS: normocephalic and atraumatic HEAD & SCALP: normocephalic and atraumatic Eye: COMMON NORMALS: Equal, round and reactive pupils present and EOMs intact bilaterally GENERAL EYE: appearance normal, both eyes and all related structures PUPIL: Yes Equal, round and reactive pupils present Neuro: HENNA COMA SCALE: document GCS findings [place] coma scale eye opening: Spontaneous [place] coma scale verbal response: Orientated [place] coma scale motor response: Obey commands [place] coma scale total score: 15 COMMON NORMALS: patient oriented x3, CN's II-XII intact bilaterally, moves all extremities, no focal motor deficits, no sensory deficits noted and gait normal SENSORIUM/ORIENTATION: Yes alert, Yes oriented to person, Yes oriented to place and Yes oriented to time Skin: COMMON NORMALS: no rashes or lesions noted GENERAL SKIN EXAM: no rashes or lesions noted Course Vital Signs: Vital signs: Vital Signs Temperature 97.5 F L 10/09/20 15:50 Pulse Rate 90 10/09/20 15:50 Respiratory Rate 16 10/09/20 15:50 Blood Pressure 147/97 10/09/20 15:50 Pulse Oximetry 98 10/09/20 15:50 Discharge Plan Discharge Patient Disposition: Home Clinical Impression: Migraine Qualifiers: Migraine type: without aura Status migrainosus presence: without status migrainosus Intractability: not intractable Qualified Code(s): G43.009 - Migraine without aura, not intractable, without status migrainosus Condition: Stable Prescriptions: No Action (DME) CAM WALKER See Rx Instructions .ROUTE .MEDSUPPLY Qty: 1 RF: 0 (DME) Even Up See Rx Instructions .Route .MEDSUPPLY Qty: 1 RF: 0 diclofenac sodium [Voltaren] 1 % gel 4 gm TOPICAL QID Qty: 100 RF: 0 (DME) ASO ankle brace See Rx Instructions .Route .MEDSUPPLY Qty: 1 RF: 0 Naprosyn 500 mg tablet 500 mg PO BID PRN (Reason: pain) Qty: 20 RF: 0 Flonase Allergy Relief 50 mcg/actuation spray,suspension 2 spray INTRANASAL BID PRN (Reason: nasal congestion) Qty: 18 RF: 0 Cortisporin-TC 3.3-3-10-0.5 mg/mL drops,suspension 1 applic EAR-BOTH Q6H Qty: 10 RF: 0 Naprosyn 500 mg tablet 500 mg PO BID PRN (Reason: pain) Qty: 20 RF: 0 Zofran 4 mg tablet 4 mg PO QID PRN (Reason: nausea and vomiting) Qty: 14 RF: 0 Discharge Orders: Discharge ED (Routine); Ordered 10/09/20 Ordered By: Pily Donis Referrals: Carina Simon FNP [Primary Care Provider] - Patient Instructions: Headache - Migraine (Adult), Migraine Headache (ED) Coding Level of Care Code ED Thermodynamics Professor for Chg Fwd Exam Detailed
[2020-10-09] MEDS: ketorolac 60 mg/2 mL INJ IM (16:36)
[2020-10-09] MEDS: promethazine 25 mg/mL SDV 1 mL IM (16:36)
== END 2020-10-09 16:45 | disposition home or self-care (01) ==
PROVIDERS: Emergency Provider Physician Assistant; PCP Nurse Practitioner Family
DX: G43.009 Migraine without aura, not intractable, without status migrainosus (principal); F17.210 Nicotine dependence, cigarettes, uncomplicated
CPT/HCPCS: 99283; J1885; J2550

== ENCOUNTER 2020-11-01 22:16 | Emergency (ER) | payer MEDICARE, OTHER, SELFPAY ==
[2020-11-01 22:22] VITALS: BP 138/87; PULSE 90; RESP 18; TEMP 36.4; O2SAT 98; BMI 44.6
--- NOTE | 2020-11-02 00:10 | ED_ITS ---
HPI - Headache General: Chief Complaint: Headache Stated Complaint: MAJOR H/A AND EAR ACHE Time Seen by Provider: 11/01/20 23:49 Source: patient Mode of arrival: ambulatory Limitations: no limitations History of Present Illness: HPI Narrative: Patient is a 40-year-old female who presents to ED today with a complaint of a migraine headache. She is also having complaints of left ear pain. She tells me she suffers from chronic ear infections. Patient has suffered from migraines for a long time. She tells me she is not able to take migraine medications as she has several different allergies. She also has a complaint of some right upper dental pain. She states she was seen a dentist at [place] however her insurance changed and they were not able to see her. Patient is requesting 60 mg IM Toradol and 25 mg IM Phenergan for her headache. Associated symptoms: Deny chest pain, confusion, fever(s), malaise, nausea or vomiting Review of Systems Const: Denies: fever(s), chills, body aches, fatigue or malaise Eyes: Denies: change in vision, blurry vision or photophobia ENMT: Reports: ear or mastoid pain and other (dental pain); Denies: odynophagia, ear discharge, change in hearing, tinnitus, disequilibrium, nasal discharge, nasal congestion, nasal obstruction or sinus pain Card: Denies: chest pain Resp: Denies: dyspnea GI: Denies: abdominal pain, nausea, vomiting or diarrhea Musc: Denies: neck pain Neuro: Reports: headache(s); Denies: numbness in extremities, weakness in extremities, sensory changes, dizziness, vertigo or confusion [facility] ED PFSH: Medical History (Updated 11/02/20 @ 00:11 by MARTI Irving) Migraines No pertinent past medical history Surgical History S/P appendectomy Social History Smoking and tobacco status: current every day smoker Alcohol intake: never Current occupational status: disabled Female Reproductive History: Date of last menstrual period: 09/16/20 Physical Exam Const: COMMON NORMALS: no acute distress, patient oriented x3, no limitations and alert GENERAL APPEARANCE: cooperative NUTRITIONAL APPEARANCE: obese ORIENTATION/CONSCIOUSNESS: Yes awake, Yes oriented to person, Yes oriented to place and Yes oriented to time HENMT: COMMON NORMALS: normocephalic, atraumatic, hearing grossly normal bilaterally, external ears normal, EAC's normal, Normal external nose present, oropharynx normal and gingiva normal HEAD & SCALP: normal to inspection, normocephalic and atraumatic FACE & SINUS: normal facial exam and sinuses nontender NOSE: Normal external nose present EXTERNAL EAR: Yes external ears normal EXTERNAL AUDITORY CANAL: EAC's normal TYMPANIC MEMBRANE: TM abnormal TM laterality: left (mild-mod erythema present) TEETH & GINGIVA: Yes poor dentition THROAT: posterior oropharynx normal, tonsils normal and uvula midline Neck/C-Spine: COMMON NORMALS: full ROM and no meningeal signs Neuro: [place] COMA SCALE: document GCS findings [place] coma scale eye opening: Spontaneous [place] coma scale verbal response: Orientated [place] coma scale motor response: Obey commands [place] coma scale total score: 15 COMMON NORMALS: patient oriented x3, CN's II-XII intact bilaterally, moves all extremities, no focal motor deficits, no sensory deficits noted and gait normal SENSORIUM/ORIENTATION: Yes alert, Yes oriented to person, Yes oriented to place and Yes oriented to time MENINGEAL SIGNS: Yes no meningeal signs Skin: COMMON NORMALS: no rashes or lesions noted GENERAL SKIN EXAM: no rashes or lesions noted Course Vital Signs: Vital signs: Vital Signs Temperature 97.6 F 11/01/20 22:22 Pulse Rate 90 11/01/20 22:22 Respiratory Rate 18 11/01/20 22:22 Blood Pressure 138/87 11/01/20 22:22 Pulse Oximetry 98 11/01/20 22:22 MDM - Headache MDM Narrative: Medical decision making narrative: Patient was given the Toradol and Phenergan for her migraine headache. We will go ahead and put patient on antibiotics for her dental infection. She states she can only take Keflex in the strength of 500 mg twice daily. Discharge Plan Discharge Patient Disposition: Home Clinical Impression: Dental caries Migraines Qualifiers: Migraine type: without aura Status migrainosus presence: without status migrainosus Intractability: not intractable Qualified Code(s): G43.009 - Migraine without aura, not intractable, without status migrainosus Condition: Stable Prescriptions: New cephalexin 500 mg capsule 500 mg PO BID 7 Days Qty: 14 RF: 0 No Action (DME) CAM WALKER See Rx Instructions .ROUTE .MEDSUPPLY Qty: 1 RF: 0 (DME) Even Up See Rx Instructions .Route .MEDSUPPLY Qty: 1 RF: 0 diclofenac sodium [Voltaren] 1 % gel 4 gm TOPICAL QID Qty: 100 RF: 0 (DME) ASO ankle brace See Rx Instructions .Route .MEDSUPPLY Qty: 1 RF: 0 Naprosyn 500 mg tablet 500 mg PO BID PRN (Reason: pain) Qty: 20 RF: 0 Flonase Allergy Relief 50 mcg/actuation spray,suspension 2 spray INTRANASAL BID PRN (Reason: nasal congestion) Qty: 18 RF: 0 Cortisporin-TC 3.3-3-10-0.5 mg/mL drops,suspension 1 applic EAR-BOTH Q6H Qty: 10 RF: 0 Naprosyn 500 mg tablet 500 mg PO BID PRN (Reason: pain) Qty: 20 RF: 0 Zofran 4 mg tablet 4 mg PO QID PRN (Reason: nausea and vomiting) Qty: 14 RF: 0 Discharge Orders: Discharge ED (Routine); Ordered 11/02/20 Ordered By: Pily Donis Referrals: Carina Simon FNP [Primary Care Provider] - Patient Instructions: Dental Caries (ED), Migraine Headache (ED), Toothache (ED) Coding Level of Care Code ED Science Teacher for Priscila Olmstead
[2020-11-02] MEDS: ketorolac 60 mg/2 mL INJ IM (00:28)
[2020-11-02] MEDS: promethazine 25 mg/mL SDV 1 mL IM (00:28)
[2020-11-02 00:36] VITALS: RESP 18
== END 2020-11-02 00:37 | disposition home or self-care (01) ==
PROVIDERS: Emergency Provider Physician Assistant; PCP Nurse Practitioner Family
DX: G43.009 Migraine without aura, not intractable, without status migrainosus (principal); K02.9 Dental caries, unspecified; F17.210 Nicotine dependence, cigarettes, uncomplicated
CPT/HCPCS: 96372; 99283; J1885; J2550

== ENCOUNTER 2020-11-07 08:08 | Emergency (ER) | payer MEDICARE, OTHER, SELFPAY ==
[2020-11-07 08:15] VITALS: BP 167/84; PULSE 85; RESP 16; TEMP 36.2; O2SAT 97; BMI 44.6
[2020-11-07 08:24] VITALS: BP 167/84; PULSE 78; RESP 16; O2SAT 97
--- NOTE | 2020-11-07 08:33 | ED_ITS ---
HPI - General Adult General: Chief complaint: General Medical Stated complaint: AB/BACK PAIN Time Seen by Provider: 11/07/20 08:12 History of Present Illness: HPI narrative: 40-year-old female presents emergency room with complaint of lower back pain on the left side radiating from the lumbosacral junction on the left around to the groin she denies dysuria urgency or frequency denies vomiting but does have some nausea. Seems to have been precipitated by bending stooping and working with some heavy materials yesterday with a home improvement project. She denies any fever no vomiting or diarrhea had a normal bowel movement this morning. Onset (ago): hour(s) Location: back Radiation: other (Left inguinal region) Severity: severe Quality: aching and sharp Pain Consistency: intermittent Relieving factors: none Exacerbating factors: none Associated symptoms: Reports nausea; Deny chest pain, confusion, cough, diaphoresis, decreased appetite, dyspnea, fevers/chills, headache(s), malaise, rash, palpitations, seizures, short of breath, syncope, vomiting or weakness Treatments prior to arrival: none Review of Systems Const: Denies: malaise or diaphoresis ENMT: Denies: throat pain, ear or mastoid pain, nasal discharge or nasal congestion Card: Denies: chest pain, palpitations or syncope Resp: Denies: dyspnea GI: Reports: nausea; Denies: vomiting : Denies: flank pain, difficulty voiding, dysuria, urinary frequency or urinary urgency Skin/Breast: Denies: rash Neuro: Denies: headache(s) or confusion COUNTS INCLUDE 234 BEDS AT THE [facility] ED PFSH: Medical History (Updated 11/07/20 @ 11:33 by Sandeep Harrington DO) Migraines No pertinent past medical history Surgical History S/P appendectomy Social History Smoking and tobacco status: current every day smoker Alcohol intake: never Current occupational status: disabled Female Reproductive History: Date of last menstrual period: 09/16/20 Physical Exam Const: COMMON NORMALS: no acute distress GENERAL APPEARANCE: cooperative and comfortable ORIENTATION/CONSCIOUSNESS: Yes awake, Yes oriented to person, Yes oriented to place and Yes oriented to time HENMT: COMMON NORMALS: normocephalic, atraumatic and hearing grossly normal bilaterally HEAD & SCALP: normocephalic and atraumatic Neck/C-Spine: COMMON NORMALS: no JVD Resp: COMMON NORMALS: normal respiratory effort, No retractions, No use of accessory muscles and clear to auscultation bilaterally AUSCULTATION: clear to auscultation bilaterally Cardio: COMMON NORMALS: no JVD, regular rate, regular rhythm and No murmurs present (Cardio) RATE: regular rate RHYTHM: regular rhythm GI: COMMON NORMALS: Soft to palpation and No hepatosplenomegaly present AUSCULTATION: Yes normoactive bowel sounds PALPATION: Yes Soft to palpation, No Tenderness to palpation present (GI), No Guarding due to palpation present (GI) and Yes No hepatosplenomegaly present Extremity: COMMON NORMALS: normal to inspection, capillary refill normal, no clubbing, cyanosis or edema, no calf tenderness and no pedal edema Neuro: SENSORIUM/ORIENTATION: Yes oriented to person, Yes oriented to place and Yes oriented to time Skin: COMMON NORMALS: no rashes or lesions noted GENERAL SKIN EXAM: no rashes or lesions noted Course Vital Signs: Vital signs: Vital Signs Temperature 97.1 F L 11/07/20 08:15 Pulse Rate 89 11/07/20 11:39 Respiratory Rate 18 11/07/20 11:39 Blood Pressure 138/80 11/07/20 11:39 Pulse Oximetry 97 11/07/20 11:39 MDM - General Adult MDM Narrative: Medical decision making narrative: Findings with the patient. Her white count slightly elevated but she has no sign of infection in her urine. We will go ahead and discharge her home on pain medication strain urine anti emetics started on Flomax follow-up with Dr. Wooten. While patient was here she was adamant that her blood sugar was low initially she did not want us to do a bedside Accu-Chek. She stated that if her blood sugar gets below 150 she gets what she describes hypoglycemic does not feel well and needs to eat. Discussed with her that target for blood sugar would actually be 90-1 20 range fasting ar ound 140 postprandial. She states she is under the impression that those goals very for different people and her goal fasting is around 150. Recommended to her that she follow-up with endocrinology to get a better handle on her diabetes she is not on any medications in the moment none I suspect her glycosylated hemoglobin indicated need. From her description it would be helpful for her overall health to have better control to prevent long-term complications. For her nephrolithiasis we will get her set up to see Dr. Wooten. Lab Data: Labs: Lab Results 11/07/20 11/07/20 11/07/20 Range/Units 09:00 09:00 09:06 WBC 13.2 H (4.0-10.0) 10^3/ uL RBC 5.40 H (4.1-5.3) 10^6/u L Hgb 16.0 H (11.5-15.3) g/dL Hct 48.3 H (37.0-47.0) % MCV 89.4 (81-99) fL MCH 29.6 (28.0-34.0) pg MCHC 33.1 (30.0-36.0) g/dL RDW 13.2 (12.1-15.1) % Plt Count 276 (130-400) 10^3/c mm MPV 10.4 (7.4-10.4) fL Neut % (Auto) 81.8 % Lymph % (Auto) 11.0 % [place] % (Auto) 5.7 % Eos % (Auto) 0.5 % Baso % (Auto) 0.4 % Neut # (Auto) 10.77 H (1.8-7.7) 10^3/u L Lymph # (Auto) 1.5 (0.8-4.8) 10^3/u L [place] # (Auto) 0.8 (0.2-0.9) 10^3/u L Eos # (Auto) 0.1 (0.0-0.8) 10^3/u L Baso # (Auto) 0.1 (0.0-0.1) 10^3/u L Nucleated RBC % (a uto) 0 % Nucleated RBCs # 0.0 /100WBC Sodium (136-145) mmol/L Potassium (3.5-5.1) mmol/L Chloride (98-107) mmol/L Carbon Dioxide (22-29) mmol/L Anion Gap (5-19) BUN (6-20) mg/dL Creatinine (0.5-0.9) mg/dL GFR Calculation (90-130) mL/min Glucose (65-115) mg/dL Calculated Osmolal ity (285-295) mOsm/k g Calcium (8.5-10.5) mg/dL Total Bilirubin (0.15-1.2) mg/dL AST (0-32) U/L ALT (0-33) U/L Alkaline Phosphata se (35-105) IU/L Total Protein (6.6-8.7) g/dL Albumin (3.5-5.2) g/dL Globulin (1.3-4.6) g/dL HCG, Qual Negative (Negative) Urine Color Yellow (Yellow) Urine Appearance Clear (CLEAR) Urine pH 5 (5-7) Ur Specific Gravit y 1.015 (1.005-1.030) Urine Protein Neg (Negative) Urine Glucose (UA) Norm (Normal) Urine Ketones Negative (Negative) Urine Blood 3+ H (Negative) Urine Nitrate Negative (Negative) Urine Bilirubin Neg (Negative) Urine Urobilinogen Norm (Negative) mg/dL Ur Leukocyte Nupur ase Negative (Negative) Urine RBC 25-40 H (0-2) /hpf Urine WBC None (0-5) /hpf Ur Squamous Epith Cells 10-15 H (0-5) /hpf Amorphous Sediment Not Reportable Urine Bacteria Trace (NONE) /hpf Urine Mucus 1+ /hpf 11/07/20 Range/Units 09:06 WBC (4.0-10.0) 10^3/ uL RBC (4.1-5.3) 10^6/u L Hgb (11.5-15.3) g/dL Hct (37.0-47.0) % MCV (81-99) fL MCH (28.0-34.0) pg MCHC (30.0-36.0) g/dL RDW (12.1-15.1) % Plt Count (130-400) 10^3/c mm MPV (7.4-10.4) fL Neut % (Auto) % Lymph % (Auto) % [place] % (Auto) % Eos % (Auto) % Baso % (Auto) % Neut # (Auto) (1.8-7.7) 10^3/u L Lymph # (Auto) (0.8-4.8) 10^3/u L [place] # (Auto) (0.2-0.9) 10^3/u L Eos # (Auto) (0.0-0.8) 10^3/u L Baso # (Auto) (0.0-0.1) 10^3/u L Nucleated RBC % (a uto) % Nucleated RBCs # /100WBC Sodium 138 (136-145) mmol/L Potassium 4.2 (3.5-5.1) mmol/L Chloride 102 (98-107) mmol/L Carbon Dioxide 26 (22-29) mmol/L Anion Gap 14.2 (5-19) BUN 10 (6-20) mg/dL Creatinine 0.7 (0.5-0.9) mg/dL GFR Calculation 92.7 (90-130) mL/min Glucose 191 H (65-115) mg/dL Calculated Osmolal ity 290 (285-295) mOsm/k g Calcium 8.7 (8.5-10.5) mg/dL Total Bilirubin 0.6 (0.15-1.2) mg/dL AST 23 (0-32) U/L ALT 38 H (0-33) U/L Alkaline Phosphata se 165 H (35-105) IU/L Total Protein 7.1 (6.6-8.7) g/dL Albumin 4.1 (3.5-5.2) g/dL Globulin 3.0 (1.3-4.6) g/dL HCG, Qual (Negative) Urine Color (Yellow) Urine Appearance (CLEAR) Urine pH (5-7) Ur Specific Gravit y (1.005-1.030) Urine Protein (Negative) Urine Glucose (UA) (Normal) Urine Ketones (Negative) Urine Blood (Negative) Urine Nitrate (Negative) Urine Bilirubin (Negative) Urine Urobilinogen (Negative) mg/dL Ur Leukocyte Nupur ase (Negative) Urine RBC (0-2) /hpf Urine WBC (0-5) /hpf Ur Squamous Epith Cells (0-5) /hpf Amorphous Sediment Urine Bacteria (NONE) /hpf Urine Mucus /hpf Discharge Plan Discharge Patient Disposition: Home Clinical Impression: Left nephrolithiasis, Diabetes mellitus Condition: Stable Prescriptions: New Zofran 4 mg tablet 4 mg PO Q6H PRN (Reason: nausea and vomiting) Qty: 15 RF: 0 tramadol 50 mg tablet 50 mg PO Q6H PRN (Reason: pain) Qty: 30 RF: 0 Flomax 0.4 mg capsule 0.4 mg PO DAILY Qty: 20 RF: 0 No Action (DME) CAM WALKER See Rx Instructions .ROUTE .MEDSUPPLY Qty: 1 RF: 0 (DME) Even Up See Rx Instructions .Route .MEDSUPPLY Qty: 1 RF: 0 diclofenac sodium [Voltaren] 1 % gel 4 gm TOPICAL QID Qty: 100 RF: 0 (DME) ASO ankle brace See Rx Instructions .Route .MEDSUPPLY Qty: 1 RF: 0 Naprosyn 500 mg tablet 500 mg PO BID PRN (Reason: pain) Qty: 20 RF: 0 cephalexin 500 mg capsule 500 mg PO BID 7 Days Qty: 14 RF: 0 Flonase Allergy Relief 50 mcg/actuation spray,suspension 2 spray INTRANASAL BID PRN (Reason: nasal congestion) Qty: 18 RF: 0 Cortisporin-TC 3.3-3-10-0.5 mg/mL drops,suspension 1 applic EAR-BOTH Q6H Qty: 10 RF: 0 Naprosyn 500 mg tablet 500 mg PO BID PRN (Reason: pain) Qty: 20 RF: 0 Zofran 4 mg tablet 4 mg PO QID PRN (Reason: nausea and vomiting) Qty: 14 RF: 0 Discharge Orders: Discharge ED (Routine); Ordered 11/07/20 Ordered By: Sandeep Harrington Referrals: Carina Simon FNP [Primary Care Provider] - Discharge Diet: Usual diet Discharge Activity: Increase activity as tolerated Patient Instructions: Opioid Safety Activity Restrictions/Additional Instructions: Case management will make referral to urology Coding Level of Care Code ED Lap Checker for Chg Fwd Exam Comprehensive
[2020-11-07 08:48] VITALS: BP 144/98; PULSE 75; RESP 16; O2SAT 96
--- NOTE | 2020-11-07 08:49 | PC.NURSE ---
Pt states she needs to use the bathroom, was given clean catch kit with instructions. Pt states I don't believe in giving urine samples. The wipes make me itch . Pt offered catheter instead, to which pt states You're not shoving anything up there. Pt educated on need for urine sample for complete lab work in order to evaluate pt's proper diagnosis. Pt states Fine, I guess I'll give you a sample. and was directed to bathroom. Pt also asked what pain medication she is getting, told Zanaflex and Toradol. Pt states I only want the Toradol because I have too many allergies and I'm not taking any chances. Physician notified of pt updates.
[2020-11-07] MEDS: ketorolac 60 mg/2 mL INJ IM (08:55)
--- NOTE | 2020-11-07 09:08 | PC.NURSE ---
Urine collected, blood drawn at bedside. All specimens labeled and taken to lab.
[2020-11-07 09:16] LABS: Basophils # 0.1 10^3/uL (0.0-0.1); Basophils % 0.4 %; Eosinophils # 0.1 10^3/uL (0.0-0.8); Eosinophils % 0.5 %; Hematocrit 48.3 % (37.0-47.0); Lymphocytes # 1.5 10^3/uL (0.8-4.8); Mean Corpuscular HGB Conc 33.1 g/dL (30.0-36.0); Mean Corpuscular Hemoglobin 29.6 pg (28.0-34.0); Mean Corpuscular Volume 89.4 fL (81-99); Mean Platelet Volume 10.4 fL (7.4-10.4); Monocytes # 0.8 10^3/uL (0.2-0.9); Monocytes % 5.7 %; Neutrophils # 10.77 10^3/uL (1.8-7.7); Neutrophils % 81.8 %; Nucleated Red Blood Cells % 0 %; Platelet Count 276 10^3/cmm (130-400); Red Cell Distribution Width 13.2 % (12.1-15.1); White Blood Count 13.2 10^3/uL (4.0-10.0)
[2020-11-07 09:22] LABS: Add Urine Microscopic? YES; Bilirubin Urine Neg (Negative); Blood Urine 3+ (Negative); Glucose Urine UA Norm (Normal); Ketones Urine Negative (Negative); Leukocyte Esterase Urine Negative (Negative); Nitrate Urine Negative (Negative); Protein Urine Neg (Negative); Specific Gravity, Urine 1.015 (1.005-1.030); Urine Appearance Clear (CLEAR); Urine Color Yellow (Yellow); Urobilinogen Urine Norm (Negative); pH Urine 5 (5-7)
[2020-11-07 09:33] LABS: Alanine Aminotransferase 38 U/L (0-33); Albumin Level 4.1 g/dL (3.5-5.2); Alkaline Phosphatase 165 IU/L (35-105); Anion Gap 14.2 (5-19); Aspartate Amino Transferase 23 U/L (0-32); Blood Urea Nitrogen 10 mg/dL (6-20); Calcium 8.7 mg/dL (8.5-10.5); Carbon Dioxide 26 mmol/L (22-29); Chloride 102 mmol/L (98-107); Creatinine Clr Calc Pharmacy 134.9098; Glomerular Filtration Rate 92.7 mL/min (90-130); Glucose 191 mg/dL (65-115); Osmolality Calculated 290 mOsm/kg (285-295); Potassium 4.2 mmol/L (3.5-5.1); Sodium 138 mmol/L (136-145); Total Bilirubin 0.6 mg/dL (0.15-1.2); Total Protein 7.1 g/dL (6.6-8.7)
[2020-11-07 09:42] LABS: Add Urine Culture? No; Bacteria Urine TRACE /hpf; Mucus Urine 1+ /hpf; RBC Urine 25-40 /hpf (0-2)
--- NOTE | 2020-11-07 09:48 | CT_ITS ---
WS: [id number] CT ABDOMEN AND PELVIS NONCONTRAST HISTORY: flank pain TECHNIQUE: Imaging performed through the abdomen and pelvis. Coronal and sagittal reformats are submi tted. All CT scans at [facility] use at least one of these dose optimization techniques: automated exposure control; mA and/or kV adjustment per patient size (includes targeted exams where d ose is matched to clinical indication); or iterative reconstruction. DLP: 2340.29 mGy.cm COMPARISON: 07/04/2014 Lower thorax: Lung bases are clear. Visualized heart is normal. No hiatal hernia. Liver: Mild hepatomegaly with severe diffuse hepatic steatosis. No bile duct dilatation. Gallbladder: Normal gallbladder. Pancreas: Normal size and attenuation. Normal pancreatic duct. No pancreatitis or mass. Spleen: Normal. Adrenal glands: Normal. No mass. Right kidney: Normal size kidney with no mass or hydronephrosis. Left kidney: 5 mm nonobstructing calcification lower pole LEFT kidney. 3 mm calcification in the mid kidney. 3 mm calcification in the proximal LEFT ureter causing only minimal obstruction of the kidney . Aorta: Normal abdominal aorta, no aneurysm or atherosclerosis. No free fluid, intraperitoneal air or significant lymphadenopathy. GI tract: Normal appendix. No GI tract obstruction or diverticulosis. Abdominal wall: Small fat-containing umbilical hernia. Pelvis: Normal. Osseous structures: Unremarkable. CT/CT kidney stone [id number] IMPRESSION: 1. Proximal LEFT ureter 3 mm calcification causing only minimal obstruction. 2. Additional nonobstructing calcifications in the LEFT kidney. 3. Marked hepatic steatosis and mild hepatomegaly.
[2020-11-07 10:25] VITALS: BP 149/102; PULSE 76; RESP 18; O2SAT 96
--- NOTE | 2020-11-07 10:28 | PC.NURSE ---
Pt rounded on and states I just don't know why I need the CT scan. My primary doctor is trying to get me a pre-authorization on my insurance for an MRI of my neck and I don't want to slam too many bills at them in case they refuse . Pt educated on need for CT to r/o kidney stone. Pt states Fine, just do the CT scan then .
[2020-11-07 10:46] LABS: HCG Qualitative Urine. Negative (Negative)
[2020-11-07 10:58] VITALS: BP 105/54; PULSE 101; RESP 18; O2SAT 97
--- NOTE | 2020-11-07 10:58 | PC.NURSE ---
CT in room to take pt to CT, pt being belligerent and demanding food, stating she needs administration and then I'll do my CT . Pt states are you just going to let someone pass out before you feed them?! Pt educated on need for test results prior to being fed. Dr Harrington updated.
--- NOTE | 2020-11-07 11:01 | PC.NURSE ---
Report given to Mindy Angel RN.
[2020-11-07 11:39] VITALS: BP 138/80; PULSE 89; RESP 18; O2SAT 97
--- NOTE | 2020-11-11 11:54 | DCPLANNER ---
network support manager had message to schedule a follow up appointment for patient with Dr. Wooten. network support manager called the office of Dr. Wooten, spoke with Isabell, gave clinic patients information. network support manager was told that patients information would be printed and reviewed.
--- NOTE | 2020-11-13 10:46 | DCPLANNER ---
rehab manager had message to schedule a follow up appointment with endocrinology for diabetic management. rehab manager called the endocrinology clinic, was told that the physician was out for the next 3 months and patient would need to follow up with their primary care physician. rehab manager called patient to inform her that she would need to follow up with primary care to get diabetic education at this time, or that an appointment could be scheduled for her in February. Patient stated that she did not have diabetes, and does not know where the doctor got the idea that she had diabetes. Patient stated that she would follow up with her primary care physician.
--- NOTE | 2020-11-15 14:22 | DCPLANNER ---
Patient had a follow up appointment scheduled for 11.12.[address] Wooten - patient did attend appointment.
== END 2020-11-07 11:46 | disposition home or self-care (01) ==
PROVIDERS: Emergency Provider Family Medicine; PCP Nurse Practitioner Family
DX: N20.0 Calculus of kidney (principal); E11.9 Type 2 diabetes mellitus without complications; F17.210 Nicotine dependence, cigarettes, uncomplicated
CPT/HCPCS: 74176; 80053; 81001; 81025; 85025; 96372; 99283; J1885

== ENCOUNTER 2020-11-12 11:51 | Outpatient (CLI) | payer MEDICARE, OTHER, SELFPAY ==
--- NOTE | 2020-11-12 12:00 | XRR_ITS ---
PROCEDURE INFORMATION: Exam: XR Abdomen Exam date and time: 11/12/2020 12:03 PM Age: 40 years old Clinical indication: Condition or disease; Kidney or ureter condition; Calculus (stone) in kidney; Prior surgery; Surgery type: Appendectomy; Additional info: Stones TECHNIQUE: Imaging protocol: XR of the abdomen. Views: Frontal supine view of the abdomen. 1 View. COMPARISON: CT ABDOMEN/PELVIS 11/07/2020 11:16:16 AM FINDINGS: Gastrointestinal tract: No dilated gas-filled loops of bowel. Organs: No radiopaque renal or ureteral calculi. The previously demonstrated left renal and ureteral calculi may be too small and/or not dense enough to be resolved radiographically. Bones/joints: No acute osseous abnormality. XR/XR KUB [id number] IMPRESSION: No radiopaque renal or ureteral calculus.
== END 2020-11-12 11:52 | disposition home or self-care (01) ==
PROVIDERS: PCP Nurse Practitioner Family; Visit Provider Urology
DX: N20.0 Calculus of kidney (principal)
CPT/HCPCS: 74018; 81003

== ENCOUNTER 2020-11-26 14:53 | Outpatient (CLI) | payer MEDICARE, OTHER, SELFPAY ==
--- NOTE | 2020-11-26 15:00 | XRR_ITS ---
PROCEDURE INFORMATION: Exam: XR Abdomen Exam date and time: 11/26/2020 3:04 PM Age: 40 years old Clinical indication: Condition or disease; Kidney or ureter condition; Calculus (stone) in ureter; Prior surgery; Surgery type: Appendectomy; Additional info: Ureteral calculus TECHNIQUE: Imaging protocol: XR of the abdomen. Views: Frontal supine view of the abdomen. 1 View. COMPARISON: 1. CR XR KUB [id number] 11/12/2020 12:[address] kidney stone [id number] 11/07/2020 11:16:16 AM FINDINGS: Gastrointestinal tract: Normal. No bowel dilation. Organs: No calcified renal stones are visible. Tiny left collecting system stones on the CT scan are not radiographically visible. Bones/joints: Unremarkable. XR/XR KUB [id number] IMPRESSION: 1. Unremarkable plain film of abdomen. 2. No change from comparison.
== END 2020-11-26 14:54 | disposition home or self-care (01) ==
LOC: RAD 14:56
PROVIDERS: PCP Nurse Practitioner Family; Visit Provider Urology
DX: N20.1 Calculus of ureter (principal)
CPT/HCPCS: 74018

== ENCOUNTER 2020-11-30 14:12 | Emergency (ER) | payer MEDICARE, OTHER, SELFPAY ==
[2020-11-30 14:19] VITALS: BP 123/81; PULSE 90; RESP 14; TEMP 36.8; O2SAT 97; BMI 44.6
[2020-11-30 14:43] VITALS: BP 127/88; BP 140/88; BP 146/94; PULSE 100; PULSE 97; PULSE 98
--- NOTE | 2020-11-30 14:49 | ED_ITS ---
HPI - Psych General: Chief Complaint: Psychiatric Symptoms Stated Complaint: ANXIETY/stressed/can't sleep Time Seen by Provider: 11/30/20 14:14 History of Present Illness: HPI Narrative: Patient presents by EMS telling me she is having difficulty sleeping but told him she also had some anxiety and stressed and could not sleep however when I questioned her regarding that and different medication she says no she is here because she is weak and it is worse when she stands up so she wanted to be checked out did not she was dehydrated or something. She has had some allergy type issues but denies any facial pain or fevers or discolored drainage. She denies cough or shortness of breath denies abdominal pain she said she did gag on her phlegm once and had a small amount of emesis just one time because she was trying to clear her throat but denies any excessive vomiting or diarrhea. She is recently had a kidney stone but denies any urine complaints at this time she denies SI or HI Review of Systems Narrative: General: denies fatigue, fever or chills, complaining of feeling weak when she stands up HEENT: denies ear pain, denies nasal congestion, denies vision changes, denies sore throat Neck: denies masses or pain Resp: denies cough, denies shortness of breath, denies pleuritic pain Cardio: denies chest pain, denies edema GI: denies abdominal pain, denies N/V/D, denies black/tarry or bloody stools : denies hematuria, denies dysuria Neuro: denies headache, denies dizziness, denies motor or sensory changes Musculoskeletal: denies pain, denies swelling Skin: denies rashes Psych: denies SI or HI, but does complain of insomnia and some stress of anxiety Endocrine: denies thyroid symptoms, denies lymphadenopathy all over ROS reviewed and patient denies PFSH ED PFSH: Medical History Left ureteral calculus Migraines No pertinent past medical history Surgical History S/P appendectomy Family History Mother , at age 65 Aortic aneurysm Social History Smoking and tobacco status: current every day smoker Alcohol intake: never Marital status: Current occupational status: disabled History of recent travel: No Female Reproductive History: Date of last menstrual period: 09/16/20 Physical Exam Narrative: EXAM NARRATIVE: General: a/o/3, no distress Head: atraumatic HEENT: normal eyes, normal conjunctiva, normal hearing, normal external nose, normal mouth, mucous membranes moist Neck: FROM, trachea midline Chest: normal expansion, no gross deformities Resp: normal speech, no retractions, no accessory muscle use, CTA bilaterally Cardio: regular rate and rhythm and no murmur, no peripheral edema, normal peripheral pulses GI: soft, flat non tender, no guarding normal BS : deferred Musculoskeletal: FROM, no pain or gross deformities Neuro: a/o appropriate for age, no gross motor or sensory deficits, CN II-XII grossly intact, normal coordination, normal speech Skin: no rashes Psych: cooperative, normal mood and effect Course Vital Signs: Vital signs: Vital Signs Temperature 98.3 F 11/30/20 14:19 Pulse Rate 100 11/30/20 14:43 Respiratory Rate 14 11/30/20 14:19 Blood Pressure 127/88 11/30/20 14:43 Pulse Oximetry 97 11/30/20 14:19 MDM - Psych MDM Narrative: Medical decision making narrative: Discussed with patient d ifferent anxiety medications and that is when she became irritated and said that she was really here because she had some weakness. Patient is laying there on her side with a blanket on and no distress. I will check some basic labs discussed with her hydroxyzine however she says that is what made her gain weight. And any other suggestions I make she has an answer for why she cannot take certain other medications Patient is now sitting upright eating food that she requested from nursing staff. She had urinated in the commode and nursing staff and instructed her we need a clean-catch patient says she is allergic to the wipes. Discussed with her that I would unfortunately need her to either use a washcloth or something to clean herself and if she would like to wait I can check a urine on her patient does not want to wait she wants us to call her boyfriend so she can go home. Discussed with her her numerous allergies and that at this point I will not prescribe her anything for her anxiety and insomnia she needs to follow-up with her provider. She can try melatonin I suggested Benadryl she says she is allergic to that discussed with her hydroxyzine she says it made her gain weight I at this point do not feel that I need to start her on any benzos out of the emergency room she appears very stable able to eat and drink laugh talk and is ready for discharge Lab Data: Labs: Lab Results 11/30/20 11/30/20 Range/Units 15:00 15:00 WBC 11.5 H (4.0-10.0) 10^3/ uL RBC 5.73 H (4.1-5.3) 10^6/u L Hgb 16.6 H (11.5-15.3) g/dL Hct 51.1 H (37.0-47.0) % MCV 89.2 (81-99) fL MCH 29.0 (28.0-34.0) pg MCHC 32.5 (30.0-36.0) g/dL RDW 13.3 (12.1-15.1) % Plt Count 299 (130-400) 10^3/c mm MPV 10.2 (7.4-10.4) fL Neut % (Auto) 72.9 % Lymph % (Auto) 18.1 % [place] % (Auto) 7.1 % Eos % (Auto) 0.7 % Baso % (Auto) 0.6 % Neut # (Auto) 8.39 H (1.8-7.7) 10^3/u L Lymph # (Auto) 2.1 (0.8-4.8) 10^3/u L [place] # (Auto) 0.8 (0.2-0.9) 10^3/u L Eos # (Auto) 0.1 (0.0-0.8) 10^3/u L Baso # (Auto) 0.1 (0.0-0.1) 10^3/u L Nucleated RBC % (a uto) 0 % Nucleated RBCs # 0.0 /100WBC Sodium 135 L (136-145) mmol/L Potassium 4.0 (3.5-5.1) mmol/L Chloride 100 (98-107) mmol/L Carbon Dioxide 26 (22-29) mmol/L Anion Gap 13.0 (5-19) BUN 8 (6-20) mg/dL Creatinine 0.7 (0.5-0.9) mg/dL GFR Calculation 92.7 (90-130) mL/min Glucose 151 H (65-115) mg/dL Calculated Osmolal ity 281 L (285-295) mOsm/k g Calcium 8.8 (8.5-10.5) mg/dL Discharge Plan Discharge Patient Disposition: Home Clinical Impression: Insomnia, Weakness Condition: Stable Prescriptions: No Action fluticasone propionate [Flonase Allergy Relief] 50 mcg/actuation spray,suspension 2 spray INTRANASAL BID PRN (Reason: nasal congestion) Qty: 18 RF: 0 Cortisporin-TC 3.3-3-10-0.5 mg/mL drops,suspension 1 applic EAR-BOTH Q6H PRN (Reason: UNKNOWN) RF: 0 Discharge Orders: Discharge ED (Routine); Ordered 11/30/20 Ordered By: Kimberly Payne Referrals: Carina Simon FNP [Primary Care Provider] - Patient Instructions: Insomnia (ED) Activity Restrictions/Additional Instructions: Recommend you speak with your provider regarding further prescriptions for anxiety or insomnia you can try [id number] Unisom or melatonin Drink lots of fluids Thank you for choosing [facility] for your healthcare needs today. Pl ease realize this is an emergency room and that we are providing you with a medical screening exam and this may not be complete and all inclusive of all the testing and or work up that you may need to determine your ailment or severity of your illness. It is very important that you follow up as instructed or that you return to the Emergency Department should you have concerns or if your condition changes or worsens in any way. Coding Level of Care Code ED Caustic Loader for Priscila Olmstead
--- NOTE | 2020-11-30 14:53 | PC.NURSE ---
PATIENT NOT SI/HI AT THIS TIME
[2020-11-30 15:12] LABS: Basophils # 0.1 10^3/uL (0.0-0.1); Basophils % 0.6 %; Eosinophils # 0.1 10^3/uL (0.0-0.8); Eosinophils % 0.7 %; Hematocrit 51.1 % (37.0-47.0); Hemoglobin 16.6 g/dL (11.5-15.3); Lymphocytes # 2.1 10^3/uL (0.8-4.8); Lymphocytes % 18.1 %; Mean Corpuscular HGB Conc 32.5 g/dL (30.0-36.0); Mean Corpuscular Volume 89.2 fL (81-99); Mean Platelet Volume 10.2 fL (7.4-10.4); Monocytes # 0.8 10^3/uL (0.2-0.9); Monocytes % 7.1 %; Neutrophils # 8.39 10^3/uL (1.8-7.7); Neutrophils % 72.9 %; Nucleated Red Blood Cells % 0 %; Platelet Count 299 10^3/cmm (130-400); Red Blood Count 5.73 10^6/uL (4.1-5.3); Red Cell Distribution Width 13.3 % (12.1-15.1); White Blood Count 11.5 10^3/uL (4.0-10.0)
[2020-11-30 15:42] LABS: Blood Urea Nitrogen 8 mg/dL (6-20); Calcium 8.8 mg/dL (8.5-10.5); Carbon Dioxide 26 mmol/L (22-29); Chloride 100 mmol/L (98-107); Creatinine Clr Calc Pharmacy 134.9098; Glomerular Filtration Rate 92.7 mL/min (90-130); Glucose 151 mg/dL (65-115); Osmolality Calculated 281 mOsm/kg (285-295); Sodium 135 mmol/L (136-145)
[2020-11-30 16:11] VITALS: PULSE 98
== END 2020-11-30 16:12 | disposition home or self-care (01) ==
PROVIDERS: Emergency Provider Emergency Medicine; PCP Nurse Practitioner Family
DX: G47.00 Insomnia, unspecified (principal); R53.1 Weakness; F17.210 Nicotine dependence, cigarettes, uncomplicated
CPT/HCPCS: 80048; 85025; 99283

== ENCOUNTER → 2020-12-16 16:27 | Outpatient (BNVA) | payer MEDICARE, OTHER, SELFPAY | PROVIDERS: PCP Nurse Practitioner Family; Visit Provider Nurse Practitioner | DX: M79.641 Pain in right hand (principal) | CPT/HCPCS: 73130 ==

== ENCOUNTER 2021-02-19 14:48 | Outpatient (CLI) | payer MEDICARE, OTHER, SELFPAY ==
--- NOTE | 2021-02-19 14:54 | CT_ITS ---
WS: [id number] CT ABDOMEN PELVIS TECHNIQUE: Noncontrast CT of the abdomen and pelvis with coronal and sagittal reformatted images. CLINICAL INFORMATION: N20.1 - Calculus of ureter COMPARISON: CT November 07, 2020 DLP: 1784.[address] scans at [facility] use at least one of these dose optimization techniques: automat ed exposure control; mA and/or kV adjustment per patient size (includes targeted exams where dose is matched to clinical indication); or iterative reconstruction. FINDINGS: Diffuse fatty infiltration liver. Hepatomegaly. Normal GE junction. Lung bases are well aerated. Nonc ontrast spleen is normal. Normal noncontrast pancreas. Adrenal glands are normal. No hydronephrosis i n either kidney. Mild bilateral renal cortical atrophy. No obstructing renal or ureteral calculi. Tin y pelvic phlebolith along the distal right ureter is unchanged. No renal parenchymal calculi. Previou sly described left ureteral calculus has resolved. Normal caliber abdominal aorta. No periaortic or retroperitoneal lymphadenopathy. A few prominent lym ph nodes in the joseph hepatis unchanged likely incidental. Normal sigmoid colon. No evidence of small or large bowel obstruction. Normal appendix right lower qu adrant. Fat-containing umbilical hernia. CT/CT kidney stone [id number] IMPRESSION: 1. No obstructing renal or ureteral calculi. No hydronephrosis. 2. No renal parenchymal calculi seen today. Mild bilateral renal cortical atro phy. 3. Hepatomegaly with diffuse fatty infiltration. 4. No other acute findings or significant change from previous.
== END 2021-02-19 14:49 | disposition home or self-care (01) ==
LOC: CT 14:50
PROVIDERS: PCP Nurse Practitioner Family; Visit Provider Urology
DX: N20.1 Calculus of ureter (principal); R16.0 Hepatomegaly, not elsewhere classified; K76.0 Fatty (change of) liver, not elsewhere classified
CPT/HCPCS: 74176

== ENCOUNTER 2021-07-04 12:25 | Emergency (ER) | payer MEDICARE, OTHER, SELFPAY ==
[2021-07-04 13:15] VITALS: PULSE 86; RESP 16; TEMP 36.6; O2SAT 99; BMI 44.6
[2021-07-04 13:20] VITALS: BP 136/87
--- NOTE | 2021-07-04 13:28 | W.ED.EXTPRO ---
HPI - Extremity Problem General: Chief complaint: Extremity Injury, Upper Stated complaint: RIGHT SHOULDER PAIN Time Seen by Provider: 07/04/21 13:19 History of Present Illness: HPI Narrative: Patient comes in stating right shoulder pain for a year and she does have an MRI ordered for her. Also says her left ear has been bothering her and she ran out of drops for that which she has a chronic problem with and also she has a migraine presently. That she did not mention that she had in triage. MD Complaint: extremity pain Onset (ago): month(s) Pain Consistency: intermittent Location: right and upper extremity Severity scale (1-10): 1 Associated symptoms: Reports no associated symptoms; Deny chest pain, fever(s) or rash Review of Systems Const: Denies: fever(s), chills or body aches Eyes: Denies: change in vision or blurry vision ENMT: Reports: ear or mastoid pain; Denies: throat pain or nasal congestion Card: Denies: chest pain or dyspnea on exertion Resp: Denies: dyspnea, productive cough or non-productive cough GI: Denies: abdominal pain, nausea or vomiting Musc: Reports: joint pain (Half an year ago from a fall is seeing PCP); Denies: extremity pain Skin/Breast: Denies: rash Neuro: Reports: headache(s) Psych: Denies: anxiety or depression [place]/Lymph: Denies: easy bruising PFSH ED PFSH: Medical History Left ureteral calculus Migraines No pertinent past medical history Surgical History S/P appendectomy Family History Mother , at age 65 Aortic aneurysm Social History Alcohol intake: never Marital status: Current occupational status: disabled History of recent travel: No Female Reproductive History: Date of last menstrual period: 09/16/20 Physical Exam Const: COMMON NORMALS: no acute distress, average body habitus and patient oriented x3 HENMT: COMMON NORMALS: normocephalic, external ears normal and TM's normal bilaterally HEAD & SCALP: normal to inspection and normocephalic FACE & SINUS: normal facial exam EXTERNAL EAR: Yes external ears normal EXTERNAL AUDITORY CANAL: Abnormal EAC present EAC laterality: left (Slightly dry skin inside the canalVery minimal and redness) TYMPANIC MEMBRANE: TM's normal bilaterally MOUTH: Normal oral and palatal mucosa present Eye: COMMON NORMALS: conjunctivae normal GENERAL EYE: appearance normal, both eyes and all related structures CONJUNCTIVA: Yes conjunctivae normal Neck/C-Spine: COMMON NORMALS: no JVD Chest: COMMONS NORMALS: normal inspection of the chest Resp: COMMON NORMALS: normal respiratory effort and clear to auscultation bilaterally AUSCULTATION: clear to auscultation bilaterally Cardio: COMMON NORMALS: no JVD, regular rate and regular rhythm RATE: regular rate RHYTHM: regular rhythm GI: COMMON NORMALS: Normal to inspection, nondistended, normoactive bowel sounds present Extremity: COMMON NORMALS: normal to inspection and full ROM NARRATIVE EXTREMITY EXAM: Pain with range of motion right shoulder but does have full range of motion Neuro: COMMON NORMALS: patient oriented x3 and moves all extremities Course Vital Signs: Vital signs: Vital Signs Temperature 97.9 F 07/04/21 13:15 Pulse Rate 86 07/04/21 13:15 Respiratory Rate 16 07/04/21 13:15 Blood Pressure 136/87 07/04/21 13:20 Pulse Oximetry 99 07/04/21 13:15 Discharge Plan Discharge Patient Disposition: Home Clinical Impression: Migraines Qualifiers: Migraine type: without aura Status migrainosus presence: without status migrainosus Intractability: intractable Qualified Code(s): G43.019 - Migraine without aura, intractable, without status migrainosus Right shoulder pain Qualifiers: Chronicity: chronic Qualified Code(s): M25.511 - Pain in right shoulder Otitis externa Qualifiers: Otitis externa type: noninfectious Noninfectious otitis externa type: actinic Chronicity: chronic Laterality: left Qualified Code(s): H60.8X2 - Other otitis externa, left ear Condition: Stable Prescriptions: New [id number]-OQ 3.5-10,000-1 mg/mL-unit/mL-% drops,suspension 4 drp otic (ear) Q8H 5 Days Qty: 10 RF: 0 No Action promethazine 6.25 mg/5 mL syrup 25 mg PO BID PRN (Reason: nausea and vomiting) 10 Days Qty: 200 RF: 0 triamcinolone acetonide 0.1 % ointment 1 applic topical BID Qty: 80 RF: 4 fluticasone propionate [Flonase Allergy Relief] 50 mcg/actuation spray,suspension 2 spray INTRANASAL BID PRN (Reason: nasal congestion) Qty: 18 RF: 0 Cortisporin-TC 3.3-3-10-0.5 mg/mL drops,suspension 1 applic EAR-BOTH Q6H PRN (Reason: UNKNOWN) RF: 0 Discharge Orders: Discharge ED (Routine); Ordered 07/04/21 Ordered By: Serge Lopez Referrals: Boom Welch DO [Primary Care Provider] - Discharge Diet: Usual diet Discharge Activity: Increase activity as tolerated Activity Restrictions/Additional Instructions: Follow-up with medical provider as directed. Take medications as prescribed. Return to the ER or your medical provider if condition worsens. Please read and understand discharge instructions. If any questions ask please. Follow-up MAGO Rodriguez for your chronic shoulder pain. Coding Level of Care Code ED Senior Director Of Strategy for Priscila Olmstead
[2021-07-04] MEDS: promethazine 25 mg/mL SDV 1 mL IM (13:42)
[2021-07-04] MEDS: ketorolac 60 mg/2 mL INJ IM (13:43)
== END 2021-07-04 13:49 | disposition home or self-care (01) ==
PROVIDERS: Emergency Provider Nurse Practitioner Family; PCP Internal Medicine
DX: M25.511 Pain in right shoulder (principal); G43.019 Migraine without aura, intractable, without status migrainosus; H60.8X2 Other otitis externa, left ear
CPT/HCPCS: 96372; 99283; J1885; J2550

== ENCOUNTER 2021-07-31 20:52 | Emergency (ER) | payer MEDICARE, OTHER, SELFPAY ==
[2021-07-31 21:01] VITALS: BP 125/84; PULSE 97; RESP 18; TEMP 36; O2SAT 96; BMI 44.6
--- NOTE | 2021-07-31 21:32 | ED_ITS ---
HPI - Neck Pain/Injury General: Chief Complaint: Neck Pain/Injury Stated Complaint: Rt Neck Pain Time Seen by Provider: 07/31/21 21:08 History of Present Illness: HPI Narrative: Chronic right shoulder pain swelling in the neck area x2 years, patient has seen most providers been here in the ER multiple times MRI has been ordered by recent PCP visit patient waiting for insurance approval. Patient requests an injection help with discomfort since she cannot take oral medications due to multiple allergies. MD complaint: other (Right shoulder/neck pain x2 years) Onset (ago): year(s) Associated symptoms: Denies headache(s) Review of Systems Const: Denies: fever(s) or chills Resp: Denies: dyspnea Musc: Reports: extremity pain and joint pain; Denies: limited range of motion Skin/Breast: Denies: rash Neuro: Denies: headache(s) PFSH ED PFSH: Medical History Left ureteral calculus Migraines No pertinent past medical history Surgical History S/P appendectomy Family History Mother , at age 65 Aortic aneurysm Social History Smoking and tobacco status: current every day smoker Alcohol intake: never Marital status: Current occupational status: disabled History of recent travel: No Female Reproductive History: Date of last menstrual period: 09/16/20 Physical Exam Const: COMMON NORMALS: no acute distress GENERAL APPEARANCE: cooperative Neck/C-Spine: COMMON NORMALS: full ROM CERVICAL SPINE: Yes cervical ROM normal and No Paracervical spasm OTHER: Patient has chronic enlargement area above plan of buckle on right and left, right probably slightly larger than left soft to touch no evidence of mass. Extremity: RIGHT UPPER EXTREMITY: Yes shoulder joint (Slight discomfort range of motion. Full range of motion noted) Skin: COMMON NORMALS: no rashes or lesions noted GENERAL SKIN EXAM: no rashes or lesions noted Course Vital Signs: Vital signs: Vital Signs Temperature 96.8 F L 07/31/21 21:01 Pulse Rate 97 07/31/21 21:01 Respiratory Rate 18 07/31/21 21:01 Blood Pressure 125/84 07/31/21 21:01 Pulse Oximetry 96 07/31/21 21:01 MDM - Neck Pain/Injury MDM Narrative: Medical decision making narrative: Patient is in her for chronic neck pain she is here for 2 years. Pain originates from the right shoulder area and from the anterior right side of the neck she has swelling below the clavicle which she has had since the fall. She does have some swelling on the left side 2. Area swelling feels to be normal. Patient states it is tender. Patient could follow-up primary care provider. Discharge Plan Discharge Patient Disposition: Home Clinical Impression: Anterior neck pain Condition: Stable Prescriptions: No Action fluticasone propionate [Flonase Allergy Relief] 50 mcg/actuation spray,suspension 2 spray INTRANASAL BID PRN (Reason: nasal congestion) Qty: 18 RF: 0 Cortisporin-TC 3.3-3-10-0.5 mg/mL drops,suspension 1 applic EAR-BOTH Q6H PRN (Reason: UNKNOWN) RF: 0 Discharge Orders: Discharge ED (Routine); Ordered 07/31/21 Ordered By: Serge Lopez Referrals: Boom Welch DO [Primary Care Provider] - Discharge Diet: Usual diet Discharge Activity: Increase activity as tolerated Activity Restrictions/Additional Instructions: Follow-up your primary care provider and with your MRI as a schedule that. Use iaia-uiw-jwbhfiz creams with possible help with discomfort and swelling. Try range of motion exercises to decrease discomfort in that shoulder. Coding Level of Care Code ED Maintenance Of Way Clerk for Priscila Fwd Exam Expanded Problem Focused
[2021-07-31] MEDS: ketorolac 60 mg/2 mL INJ IM (22:25)
[2021-07-31] MEDS: promethazine 25 mg/mL SDV 1 mL IM (22:30)
== END 2021-07-31 22:39 | disposition home or self-care (01) ==
PROVIDERS: Emergency Provider Nurse Practitioner Family; PCP Internal Medicine
DX: M54.2 Cervicalgia (principal); F17.210 Nicotine dependence, cigarettes, uncomplicated
CPT/HCPCS: 96372; 99283; J1885; J2550

== ENCOUNTER 2021-09-21 20:59 | Emergency (ER) | payer MEDICARE, OTHER, SELFPAY ==
[2021-09-21 21:07] VITALS: BP 144/89; PULSE 92; RESP 20; TEMP 36.7; O2SAT 99; BMI 44.6
--- NOTE | 2021-09-21 21:23 | CTR_ITS ---
PROCEDURE INFORMATION: Exam: CT Cervical Spine Without Contrast Exam date and time: 09/21/2021 9:23 PM Age: 41 years old Clinical indication: Neck pain and radicular pain (radiculopathy); Cervical region; Patient HX: C/O neck/rue pain w/o injury; Additional info: Right arm radiculopathy TECHNIQUE: Imaging protocol: Computed tomography images of the cervical spine without contrast. Radiation optimization: All CT scans at this facility use at least one of these dose optimization techniques: automated exposure control; mA and/or kV adjustment per patient size (includes targeted exams where dose is matched to clinical indication); or iterative reconstruction. COMPARISON: 1. CT head wo con* [id number] 2019-02-27 14:03 2. CR XR shoulder RT min 2V* [id number] 2020-08-16 21:21 RADIATION DOSE METRICS: Total DLP (mGy-cm): 827.56 FINDINGS: Bones/joints: Straightening of the normal cervical lordotic curvature. Normal vertebral body heights and alignments. No fractures. Discs/Spinal canal/Neural foramina: Diffuse degenerative disc space loss with degenerative disc osteophyte complexes causes up to mild spinal and foraminal stenosis greatest at C4-C6. Lungs: Lung apices are normal. Soft tissues: Unremarkable. CT/CT cervical spin wo con* [id number] IMPRESSION: No acute fracture/subluxation.
--- NOTE | 2021-09-21 21:23 | ED_ITS ---
HPI - Extremity Problem General: Chief complaint: Extremity Injury, Upper Stated complaint: neck pain an R shoulder pain Time Seen by Provider: 09/21/21 21:13 History of Present Illness: Patient complains ongoing chronic ear pain, migraines and right shoulder pain. Patient says has been trying to get MRI for 2 years on her shoulder neck area from a fall injury she has had she said has not been improved her pain continues on. She has pain that radiates from her neck through shoulder down to her hands. Associated symptoms: Deny chest pain, fever(s) or rash Review of Systems Const: Denies: fever(s), chills or body aches Eyes: Denies: eye discomfort ENMT: Reports: ear or mastoid pain; Denies: throat pain Card: Denies: chest pain Resp: Denies: dyspnea GI: Denies: abdominal pain, nausea or vomiting Musc: Reports: neck pain, joint pain and other (Pain rating down to her hands on the right side) Skin/Breast: Denies: rash Neuro: Reports: headache(s) Psych: Denies: depression or suicidal ideation [facility] ED PFSH: Medical History Left ureteral calculus Migraines No pertinent past medical history Surgical History S/P appendectomy Family History Mother , at age 65 Aortic aneurysm Social History Smoking and tobacco status: current every day smoker Alcohol intake: never Marital status: Current occupational status: disabled History of recent travel: No Female Reproductive History: Date of last menstrual period: 09/16/20 Physical Exam Const: COMMON NORMALS: no acute distress, patient oriented x3 and alert HENMT: COMMON NORMALS: normocephalic, external ears normal and TM's normal bilaterally HEAD & SCALP: normocephalic EXTERNAL EAR: Yes external ears normal TYMPANIC MEMBRANE: TM's normal bilaterally Eye: COMMON NORMALS: EOMs intact bilaterally Neck/C-Spine: COMMON NORMALS: no JVD OTHER: Tenderness right trapezius area and along the nerve root coming through the right arm down to about elbow area. Resp: COMMON NORMALS: normal respiratory effort and No use of accessory muscles Cardio: COMMON NORMALS: no JVD GI: INSPECTION: Yes normal to inspection Extremity: COMMON NORMALS: normal to inspection and full ROM Neuro: COMMON NORMALS: patient oriented x3 SENSORIUM/ORIENTATION: Yes alert SPEECH: speech normal PUPIL EXAM: Normal pupillary reactivity/response: bilateral Psych: COMMON NORMALS: mental status grossly normal Skin: COMMON NORMALS: no rashes or lesions noted GENERAL SKIN EXAM: no rashes or lesions noted Course Vital Signs: Vital signs: Vital Signs Temperature 98.1 F 09/21/21 21:07 Pulse Rate 92 09/21/21 21:07 Respiratory Rate 20 H 09/21/21 21:07 Blood Pressure 144/89 09/21/21 21:07 Pulse Oximetry 99 09/21/21 21:07 MDM - Extremity (Nontraumatic) Medical Decision Making Patient has history of chronic right shoulder neck pain with radiculopathy since a fall 2 years ago. Patient also has chronic ear itching and history of migraines. Toradol and frequency is the only thing that works for her migraines. Advised to use hydrocortisone cream 0.5% on a Q-tip in her ear to help with itching. Follow-up with primary care provider concerning spinal stenosis. Lab Data Radiology Impressions Cervical Spine CT 09/21/21 21:23 IMPRESSION: No acute fracture/subluxation. Discharge Plan Discharge Patient Disposition: Home Clinical Impression: Cervical spinal stenosis, Migraine, Ear itching Condition: Stable Prescriptions: New Celebrex 100 mg capsule 100 mg PO BID Qty: 20 0RF No Action fluticasone propionate [Flonase Allergy Relief] 50 mcg/actuation spray,suspension 2 spray INTRANASAL BID PRN (Reason: nasal congestion) Qty: 18 0RF Rx Instructions: administer into each nostril twice daily as needed for congestion Cortisporin-TC 3.3-3-10-0.5 mg/mL drops,suspension 1 applic EAR-BOTH Q6H PRN (Reason: UNKNOWN) 0RF Rx Instructions: apply to (cotton) wick; replace wick every 24 hours Discharge Orders: Discharge ED (Routine); Ordered 09/21/21 Ordered By: Serge Lopez Referrals: Boom Welch DO [Primary Care Provider] - Discharge Diet: Usual diet Discharge Activity: Increase activity as tolerated Patient Instructions: Cervical Spinal Stenosis (ED) Activity Restrictions/Additional Instructions: Follow-up with medical provider as directed. Take medications as prescribed. Return to the ER or your medical provider if condition worsens. Please read and understand discharge instructions. If any questions ask please. Follow-up your primary care provider receiving get a referral to Dr. Avendano the orthopedic neck and back doctor. Coding Level of Care Code ED Petroleum Supply Specialist for Chg Fwd Exam Comprehensive
--- NOTE | 2021-09-21 21:32 | PC.NURSE ---
patient received iwth pain to shoulder for years, states MRI can not be authorized so she wants a CT. states also in for her migraine medication and asking by name and dosage for exact medications. respirations even equal and unlabored. NAD
[2021-09-21] MEDS: promethazine 25 mg/mL SDV 1 mL IM (21:54)
[2021-09-21] MEDS: ketorolac 60 mg/2 mL INJ IM (21:54)
== END 2021-09-21 22:21 | disposition home or self-care (01) ==
PROVIDERS: Emergency Provider Nurse Practitioner Family; PCP Internal Medicine
DX: M48.02 Spinal stenosis, cervical region (principal); G43.909 Migraine, unspecified, not intractable, without status migrainosus; L29.9 Pruritus, unspecified; F17.210 Nicotine dependence, cigarettes, uncomplicated
CPT/HCPCS: 72125; 96372; 99283; J1885; J2550

== ENCOUNTER 2021-09-24 22:41 | Emergency (ER) | payer MEDICARE, OTHER, SELFPAY ==
--- NOTE | 2021-09-24 22:53 | XRR_ITS ---
PROCEDURE INFORMATION: Exam: XR Chest Exam date and time: 09/24/2021 10:53 PM Age: 41 years old Clinical indication: Cough and dyspnea; Additional info: Cough, dyspnea TECHNIQUE: Imaging protocol: XR of the chest. Views: 1 view. COMPARISON: CR Chest 1 [place] [id number] 01/17/2018 11:02 PM FINDINGS: Lungs: Unremarkable. No consolidation. Pleural spaces: Unremarkable. No pleural effusion. No pneumothorax. Heart/Mediastinum: Unremarkable. No cardiomegaly. Bones/joints: Unremarkable. XR/XR chest 1V portable [id number] IMPRESSION: No acute findings.
[2021-09-24 22:55] VITALS: BP 150/86; PULSE 116; RESP 16; TEMP 37.7; O2SAT 96; BMI 44.6
--- NOTE | 2021-09-24 23:15 | W.ED.URI ---
HPI - URI/Sore Throat General: Chief Complaint: Upper Respiratory Infection Stated Complaint: Coughing\SOB Time Seen by Provider: 09/24/21 23:00 Source: patient Mode of arrival: ambulatory Limitations: no limitations History of Present Illness: 41-year-old female who states that she has had a cough congestion slight fever over the last 2 days. She states that she gets bronchitis every year and this is similar. She has not had a inhaler at home. She denies any vomiting or diarrhea she denies any severe dyspnea. She denies any worsening proving factors. Associated symptoms: Deny abdominal pain, chills, chest pain, diarrhea, fever(s), headache(s), nausea or vomiting Review of Systems Const: Denies: fever(s), chills, body aches or change in appetite Eyes: Denies: blurry vision or eye discomfort ENMT: Denies: throat pain or dental pain Card: Denies: chest pain Resp: Reports: non-productive cough and wheezing GI: Denies: abdominal pain, nausea, vomiting or diarrhea : Denies: dysuria Musc: Denies: neck pain or back pain Skin/Breast: Denies: rash Neuro: Denies: headache(s) Psych: Denies: depression [place]/Lymph: Denies: easy bruising All/Imm: Denies: urticaria PFSH ED PFSH: Medical History Left ureteral calculus Migraines No pertinent past medical history Surgical History S/P appendectomy Family History Mother , at age 65 Aortic aneurysm Social History Smoking and tobacco status: current every day smoker Alcohol intake: never Marital status: Current occupational status: disabled History of recent travel: No Female Reproductive History: Date of last menstrual period: 09/16/20 Physical Exam Const: COMMON NORMALS: no acute distress, patient oriented x3 and healthy appearing HENMT: COMMON NORMALS: normocephalic and atraumatic HEAD & SCALP: normocephalic and atraumatic Eye: COMMON NORMALS: Equal, round and reactive pupils present and EOMs intact bilaterally PUPIL: Yes Equal, round and reactive pupils present Neck/C-Spine: COMMON NORMALS: full ROM and supple Chest: COMMONS NORMALS: normal inspection of the chest and normal palpation of entire chest wall Resp: COMMON NORMALS: normal respiratory effort, No retractions, No use of accessory muscles and clear to auscultation bilaterally AUSCULTATION: clear to auscultation bilaterally Cardio: COMMON NORMALS: regular rate, regular rhythm and No murmurs present (Cardio) RATE: regular rate RHYTHM: regular rhythm GI: COMMON NORMALS: Normal to inspection, nondistended, normoactive bowel sounds present, Soft to palpation, non-tender and no masses PALPATION: Yes Soft to palpation Extremity: COMMON NORMALS: normal to inspection and full ROM Neuro: COMMON NORMALS: patient oriented x3, moves all extremities and no focal motor deficits Psych: COMMON NORMALS: mental status grossly normal, Normal thought process present and cooperative THOUGHT PROCESS: Normal thought process present Skin: COMMON NORMALS: no rashes or lesions noted and no wounds GENERAL SKIN EXAM: no rashes or lesions noted Course Vital Signs: Vital signs: Vital Signs Temperature 100 F H 09/24/21 22:55 Pulse Rate 116 H 09/24/21 22:55 Respiratory Rate 16 09/24/21 22:55 Blood Pressure 150/86 09/24/21 22:55 Pulse Oximetry 96 09/24/21 22:55 MDM - URI/Sore Throat Medical Decision Making Patient presents here with cough congestion likely bronchitis x-ray shows no signs of pneumonia we will send off a flu and Covid we will start her on Keflex along with albuterol she is to follow-up with PCP and return if worsening. Discharge Plan Discharge Patient Disposition: Home Clinical Impression: Bronchitis Condition: Stable Prescriptions: New cephalexin 500 mg capsule 500 mg PO BID 7 Days Qty: 14 0RF albuterol sulfate 90 mcg/actuation HFA aerosol inhaler 2 inh INHALATION Q6H PRN (Reason: shortness of breath or wheezing) Qty: 8 0RF No Action Celebrex 100 mg capsule 100 mg PO BID Qty: 20 0RF fluticasone propionate [Flonase Allergy Relief] 50 mcg/actuation spray,suspension 2 spray INTRANASAL BID PRN (Reason: nasal congestion) Qty: 18 0RF Rx Instructions: administer into each nostril twice daily as needed for congestion Cortisporin-TC 3.3-3-10-0.5 mg/mL drops,suspension 1 applic EAR-BOTH Q6H PRN (Reason: UNKNOWN) 0RF Rx Instructions: apply to (cotton) wick; replace wick every 24 hours Discharge Orders: Discharge ED (Routine); Ordered 09/24/21 Ordered By: David Loco Referrals: Boom Welch DO [Primary Care Provider] - 1-3 days Discharge Diet: Advance as tolerated Discharge Activity: Resume usual activity Patient Instructions: Acute Bronchitis (ED) Coding Level of Care Code ED Professional Development Instructor for Chg Fwd Exam Comprehensive
[2021-09-24] MEDS: ibuprofen 800 mg tablet PO (23:35)
[2021-09-25 01:28] LABS: Adenovirus Not Detected (NOT DETECT); Chlamydia Pneumoniae Not Detected (NOT DETECT); Coronavirus 229E,HKU1,NL63,OC4 Not Detected (NOT DETECT); Human Metapneumovirus Not Detected (NOT DETECT); Human Rhinovirus/Enterovirus Not Detected (NOT DETECT); Influenza A Detected (NOT DETECT); Influenza A H1 Not Detected (NOT DETECT); Influenza A H1-2009 Not Detected (NOT DETECT); Influenza A H3 Detected (NOT DETECT); Influenza B Not Detected (NOT DETECT); Mycoplasma Pneumoniae Not Detected (NOT DETECT); Parainfluenza Virus Type 1 Not Detected (NOT DETECT); Parainfluenza Virus Type 2 Not Detected (NOT DETECT); Parainfluenza Virus Type 3 Not Detected (NOT DETECT); Parainfluenza Virus Type 4 Not Detected (NOT DETECT); Respiratory Syncytial Virus A Not Detected (NOT DETECT); Respiratory Syncytial Virus B Not Detected (NOT DETECT); SARS-COV-2 Not Detected (NOT DETECT)
[2021-09-25 01:41] LABS: Results from Genmark
== END 2021-09-24 23:56 | disposition home or self-care (01) ==
PROVIDERS: Emergency Provider Emergency Medicine; PCP Internal Medicine
DX: J40 Bronchitis, not specified as acute or chronic (principal); F17.210 Nicotine dependence, cigarettes, uncomplicated; Z20.822 Contact with and (suspected) exposure to COVID-19
CPT/HCPCS: 71045; 87631; 87635; 99283; J3535

== ENCOUNTER 2021-10-09 15:45 | Outpatient (CLI) | payer MEDICARE, OTHER, SELFPAY | END 2021-10-09 15:46 | disposition home or self-care (01) | LOC: SPT 15:46 | PROVIDERS: PCP Internal Medicine; Visit Provider Orthopaedic Surgery | DX: Z46.89 Encounter for fitting and adjustment of other specified devices (principal); M25.511 Pain in right shoulder | CPT/HCPCS: 97760; L3670 ==

== ENCOUNTER 2021-10-24 20:41 | Emergency (ER) | payer MEDICARE, OTHER, SELFPAY ==
[2021-10-24 20:54] VITALS: BP 138/89; PULSE 93; RESP 16; TEMP 36.9; O2SAT 98; BMI 44.4
[2021-10-24 21:15] VITALS: BP 135/74; PULSE 100; RESP 18; O2SAT 94
--- NOTE | 2021-10-24 21:18 | W.ED.HA ---
HPI - Headache General: Chief Complaint: Headache Stated Complaint: migraines, neck pain Time Seen by Provider: 10/24/21 21:18 History of Present Illness: 41-year-old female comes in today with a migraine headache. Patient states that she has a history of migraine headaches and usually will get a ketorolac injection along with promethazine to help resolve her headache. Patient denies any other complaints. Patient reports pain started this morning without relief from home medications. Patient appears nontoxic. Patient appears in mild to moderate pain. MD elicited complaint: migraine Pertinent past history: migraines Onset (ago): hour(s) Associated symptoms: Deny chest pain or fever(s) Review of Systems General: Reports: 10 or more systems reviewed and unremarkable except in HPI and below Const: Denies: fever(s) Card: Denies: chest pain Resp: Denies: dyspnea Musc: Reports: neck pain Neuro: Reports: headache(s) PFS ED PFSH: Medical History Left ureteral calculus Migraines No pertinent past medical history Surgical History S/P appendectomy Family History Mother , at age 65 Aortic aneurysm Social History Smoking and tobacco status: current every day smoker Alcohol intake: never Marital status: Current occupational status: disabled History of recent travel: No Female Reproductive History: Date of last menstrual period: 09/16/20 Physical Exam Const: COMMON NORMALS: alert HENMT: COMMON NORMALS: normocephalic HEAD & SCALP: normocephalic Neck/C-Spine: CERVICAL SPINE: Yes Paracervical muscle tenderness Resp: COMMON NORMALS: normal respiratory effort Cardio: COMMON NORMALS: regular rate and regular rhythm RATE: regular rate RHYTHM: regular rhythm Extremity: COMMON NORMALS: normal to inspection Neuro: SENSORIUM/ORIENTATION: Yes alert Course Vital Signs: Vital signs: Vital Signs Temperature 98.4 F 10/24/21 20:54 Pulse Rate 93 10/24/21 20:54 Respiratory Rate 16 10/24/21 20:54 Blood Pressure 138/89 10/24/21 20:54 Pulse Oximetry 98 10/24/21 20:54 MDM - Headache Medical Decision Making Patient comes in today for complaints of migraine headache. On exam patient does have some paracervical muscle tenderness on the right side. Lungs are clear to auscultation. Abdomen soft nontender. Vital signs are normal. Differential diagnosis includes but not limited to cervical strain, tension headache, migraine headache, malingering. Patient was given a dose of ketorolac 60 mg and 25 mg promethazine for her migraine headache. Patient usually takes this for her migraines and that was provided for her. Encourage activity as tolerated continue with routine care. Patient reported understanding and agreed to plan. No signs of serious illness or injury was noted. Discharge Plan Discharge Patient Disposition: Home Clinical Impression: Headache Qualifiers: Headache type: unspecified Headache chronicity pattern: acute headache Intractability: not intractable Qualified Code(s): R51.9 - Headache, unspecified Condition: Stable Prescriptions: No Action (DME) shoulder immobilizer See Rx Instructions .Route .MEDSUPPLY Qty: 1 0RF Rx Instructions: As directed albuterol sulfate 90 mcg/actuation HFA aerosol inhaler 2 inh INHALATION Q6H PRN (Reason: shortness of breath or wheezing) Qty: 8 0RF fluticasone propionate [Flonase Allergy Relief] 50 mcg/actuation spray,suspension 2 spray INTRANASAL BID PRN (Reason: nasal congestion) Qty: 18 0RF Rx Instructions: administer into each nostril twice daily as needed for congestion Cortisporin-TC 3.3-3-10-0.5 mg/mL drops,suspension 1 applic EAR-BOTH Q6H PRN (Reason: UNKNOWN) 0RF Rx Instructions: apply to (cotton) wick; replace wick every 24 hours Discharge Orders: Discharge ED (Routine); Ordered 10/24/21 Ordered By: Rojelio Ty Referrals: Boom Welch DO [Primary Care Provider] - Discharge Diet: Usual diet Discharge Activity: Increase activity as tolerated Patient Instructions: Neck Pain (ED) Activity Restrictions/Additional Instructions: Activity as tolerated. Continue with routine care. Follow-up with primary care for further instruction. Return to ER for new concerns. Coding Level of Care Code ED Home Health Billing Specialist for Priscila Olmstead
[2021-10-24] MEDS: ketorolac 60 mg/2 mL INJ IM (21:45)
[2021-10-24] MEDS: promethazine 25 mg/mL SDV 1 mL IM (21:45)
[2021-10-24 22:05] VITALS: BP 113/75; PULSE 98; RESP 18; O2SAT 96
== END 2021-10-24 22:05 | disposition home or self-care (01) ==
PROVIDERS: Emergency Provider Nurse Practitioner Family; PCP Internal Medicine
DX: R51.9 Headache, unspecified (principal); F17.210 Nicotine dependence, cigarettes, uncomplicated
CPT/HCPCS: 96372; 99283; J1885; J2550

== ENCOUNTER 2021-11-28 13:40 | Emergency (ER) | payer MEDICARE, OTHER, SELFPAY ==
[2021-11-28 13:48] VITALS: BP 170/104; PULSE 104; RESP 18; O2SAT 98; BMI 44.6
--- NOTE | 2021-11-28 14:04 | W.ED.HA ---
HPI - Headache General: Chief Complaint: Headache Stated Complaint: Headache, ear pain Time Seen by Provider: 11/28/21 13:42 History of Present Illness: Patient is a 41-year-old female comes to the ED with a migraine. Patient has a history of migraines says this 1 is just like her past migraines. She rates it currently an 8 out of 10. Pain is located in the right side of her head that is a dull aching pain. She did have a migraine started approximate 3 days ago. She endorses having nausea and lights make it worse. She says in her past visits to the ED because of migraines they usually give her a shot of Toradol and Phenergan and that always improves her headache. Denies any neurological deficits such as numbness tingling or weakness to 1 side of body or face or any vision changes. Associated symptoms: Reports nausea; Deny chest pain, fever(s), rash or vomiting Review of Systems Const: Denies: fever(s), chills or fatigue Eyes: Denies: change in vision or eye discomfort ENMT: Denies: throat pain, odynophagia, nasal discharge or nasal congestion Card: Denies: chest pain, palpitations, edema, swelling of feet/ankles, dyspnea on exertion or orthopnea Resp: Denies: dyspnea, productive cough or non-productive cough GI: Reports: nausea; Denies: abdominal pain, vomiting, diarrhea, constipation or hematochezia : Denies: flank pain, dysuria or hematuria Musc: Denies: neck pain, back pain or extremity swelling Skin/Breast: Denies: rash or new lesions Neuro: Reports: headache(s); Denies: numbness in extremities or weakness in extremities PFS ED PFSH: Medical History Left ureteral calculus Migraines No pertinent past medical history Surgical History S/P appendectomy Family History Mother , at age 65 Aortic aneurysm Social History Smoking and tobacco status: current every day smoker Alcohol intake: never Marital status: Current occupational status: disabled History of recent travel: No Female Reproductive History: Date of last menstrual period: 09/16/20 Physical Exam Const: COMMON NORMALS: no acute distress, patient oriented x3 and alert GENERAL APPEARANCE: cooperative and comfortable HENMT: COMMON NORMALS: normocephalic HEAD & SCALP: normocephalic MOUTH: Normal oral and palatal mucosa present THROAT: posterior oropharynx normal and uvula midline Eye: COMMON NORMALS: Equal, round and reactive pupils present, EOMs intact bilaterally and conjunctivae normal CONJUNCTIVA: Yes conjunctivae normal PUPIL: Yes Equal, round and reactive pupils present Neck/C-Spine: COMMON NORMALS: supple GENERAL: Yes normal visual inspection Resp: COMMON NORMALS: normal respiratory effort, No retractions, No use of accessory muscles and clear to auscultation bilaterally AUSCULTATION: clear to auscultation bilaterally Cardio: COMMON NORMALS: regular rate, regular rhythm, S1 normal heart sound present, S2 normal heart sound present, No gallops present (Cardio), No clicks present (Cardio), No murmurs present (Cardio) and Peripheral pulses 2+ throughout RATE: regular rate RHYTHM: regular rhythm HEART SOUNDS: S1 normal heart sound present and S2 normal heart sound present PERIPHERAL PULSES: Peripheral pulses 2+ throughout GI: COMMON NORMALS: Normal to inspection, nondistended, normoactive bowel sounds present, Soft to palpation, non-tender and no masses PALPATION: Yes Soft to palpation : COMMON NORMALS: Yes no CVA tenderness BLADDER/KIDNEY EXAM: Yes no CVA tenderness Back/Pelvis: COMMON NORMALS: no CVA tenderness Extremity: COMMON NORMALS: normal to inspection Neuro: COMMON NORMALS: patient oriented x3, CN's II-XII intact bilaterally, moves all extremities, no focal motor deficits and no sensory deficits noted SENSORIUM/ORIENTATION: Yes alert SPEECH: speech normal SENSORY EXAM: Yes extremities (intact) MOTOR EXAM: 5/5 motor strength present throughout Skin: GENERAL SKIN EXAM: dry skin Course Vital Signs: Vital signs: Vital Signs Pulse Rate 104 H 11/28/21 14:28 Respiratory Rate 18 11/28/21 14:28 Blood Pressure 170/104 11/28/21 14:28 Pulse Oximetry 98 11/28/21 14:28 MDM - Headache Medical Decision Making Patient is a 41-year-old female comes to the ED with a migraine. She has a history of migraines and says this feels like her previous migraines. Denies any neurodeficits. Vitals are stable. Exam is benign and neuro exam shows no deficits. Patient was given a shot of Toradol and Phenergan here in the ED and was stable for discharge home. Follow-up with PCP in the next week for reevaluation. Return to ED precautions given. Patient understood and agreed with plan. Discharge Plan Discharge Patient Disposition: Home Clinical Impression: Migraine Qualifiers: Migraine type: without aura Status migrainosus presence: without status migrainosus Intractability: not intractable Qualified Code(s): G43.009 - Migraine without aura, not intractable, without status migrainosus Condition: Stable Prescriptions: New [id number]-[id number]-[id number] 3.5-10,000-1 mg/mL-unit/mL-% drops,suspension 4 drp otic (ear) Q8H 7 Days Qty: 10 0RF No Action (DME) shoulder immobilizer See Rx Instructions .Route .MEDSUPPLY Qty: 1 0RF Rx Instructions: As directed (DME) Wayne J cervical collar See Rx Instructions .Route .MEDSUPPLY Qty: 1 0RF Rx Instructions: As directed albuterol sulfate 90 mcg/actuation HFA aerosol inhaler 2 inh INHALATION Q6H PRN (Reason: shortness of breath or wheezing) Qty: 8 0RF fluticasone propionate [Flonase Allergy Relief] 50 mcg/actuation spray,suspension 2 spray INTRANASAL BID PRN (Reason: nasal congestion) Qty: 18 0RF Rx Instructions: administer into each nostril twice daily as needed for congestion Cortisporin-TC 3.3-3-10-0.5 mg/mL drops,suspension 1 applic EAR-BOTH Q6H PRN (Reason: UNKNOWN) 0RF Rx Instructions: apply to (cotton) wick; replace wick every 24 hours Discharge Orders: Discharge ED (Routine); Ordered 11/28/21 Ordered By: Carlos Streeter Referrals: Boom Welch DO [Primary Care Provider] - Discharge Diet: Regular Discharge Activity: Increase activity as tolerated Patient Instructions: Migraine Headache (ED) Activity Restrictions/Additional Instructions: Follow-up with medical provider as directed in the next 5 to 7 days reevaluation. Continue taking all home medications as previously prescribed. Return to the ER or your medical provider if condition worsens. Please read and understand discharge instructions. Thank you for choosing [facility] for your healthcare needs today. Please realize this is an emergency room and that we are providing you with a medical screening exam and this may not be complete and all inclusive of all the testing and or work up that you may need to determine your ailment or severity of your illness. It is very important that you follow up as instructed or that you return to the Emergency Department should you have concerns or if your condition changes or worsens in any way. Coding Level of Care Code ED Pump And Still Operator for Priscila Fwgwendolyn Exam Comprehensive
[2021-11-28] MEDS: ketorolac 60 mg/2 mL INJ IM (14:17)
[2021-11-28] MEDS: promethazine 25 mg/mL SDV 1 mL IM (14:17)
[2021-11-28 14:28] VITALS: BP 170/104; PULSE 104; RESP 18; O2SAT 98
== END 2021-11-28 14:29 | disposition home or self-care (01) ==
PROVIDERS: Emergency Provider Physician Assistant; PCP Internal Medicine
DX: G43.009 Migraine without aura, not intractable, without status migrainosus (principal); F17.200 Nicotine dependence, unspecified, uncomplicated
CPT/HCPCS: 96372; 99283; J1885; J2550

== ENCOUNTER 2021-12-17 17:48 | Emergency (ER) | payer MEDICARE, OTHER, SELFPAY ==
[2021-12-17 18:16] VITALS: BP 121/84; PULSE 91; RESP 18; TEMP 36.2; O2SAT 97; BMI 44.6
--- NOTE | 2021-12-17 20:19 | ED_ITS ---
HPI - Headache General: Chief Complaint: Headache Stated Complaint: Migraine Time Seen by Provider: 12/17/21 20:12 Source: patient Mode of arrival: ambulatory Limitations: no limitations History of Present Illness: 41-year-old female who has a extensive history of migraine she states that she had a migraine that started this afternoon is worsened states is like her previous migraine she has photophobia phonophobia rates the pain a 7 out of 10 this is not the worst take of her life she denies any fevers has had some nausea no vomiting. Associated symptoms: Deny chest pain, fever(s), nausea, rash or vomiting Review of Systems Const: Denies: fever(s), chills, body aches or change in appetite Eyes: Denies: blurry vision or eye discomfort ENMT: Denies: throat pain or dental pain Card: Denies: chest pain Resp: Denies: dyspnea GI: Denies: abdominal pain, nausea, vomiting or diarrhea : Denies: dysuria Musc: Denies: neck pain or back pain Skin/Breast: Denies: rash Neuro: Reports: headache(s) Psych: Denies: depression [place]/Lymph: Denies: easy bruising All/Imm: Denies: urticaria PFSH ED PFSH: Medical History Left ureteral calculus Migraines No pertinent past medical history Surgical History S/P appendectomy Family History Mother , at age 65 Aortic aneurysm Social History Smoking and tobacco status: current every day smoker Alcohol intake: never Marital status: Current occupational status: disabled History of recent travel: No Female Reproductive History: Date of last menstrual period: 09/16/20 Physical Exam Const: COMMON NORMALS: no acute distress, patient oriented x3 and healthy appearing HENMT: COMMON NORMALS: normocephalic and atraumatic HEAD & SCALP: normocephalic and atraumatic Eye: COMMON NORMALS: Equal, round and reactive pupils present and EOMs intact bilaterally PUPIL: Yes Equal, round and reactive pupils present Neck/C-Spine: COMMON NORMALS: full ROM and supple Chest: COMMONS NORMALS: normal inspection of the chest and normal palpation of entire chest wall Resp: COMMON NORMALS: normal respiratory effort, No retractions, No use of accessory muscles and clear to auscultation bilaterally AUSCULTATION: clear to auscultation bilaterally Cardio: COMMON NORMALS: regular rate, regular rhythm and No murmurs present (Cardio) RATE: regular rate RHYTHM: regular rhythm GI: COMMON NORMALS: Normal to inspection, nondistended, normoactive bowel sounds present, Soft to palpation, non-tender and no masses PALPATION: Yes Soft to palpation Extremity: COMMON NORMALS: normal to inspection and full ROM Neuro: COMMON NORMALS: patient oriented x3, moves all extremities and no focal motor deficits Psych: COMMON NORMALS: mental status grossly normal, Normal thought process present and cooperative THOUGHT PROCESS: Normal thought process present Skin: COMMON NORMALS: no rashes or lesions noted and no wounds GENERAL SKIN EXAM: no rashes or lesions noted Course Vital Signs: Vital signs: Vital Signs Temperature 97.2 F L 12/17/21 18:16 Pulse Rate 91 12/17/21 18:16 Respiratory Rate 18 12/17/21 18:16 Blood Pressure 121/84 12/17/21 18:16 Pulse Oximetry 97 12/17/21 18:16 MDM - Headache Medical Decision Making Patient presents with migraine headache she has chronic headaches we will give her Phenergan and Toradol as it is what is worked for the past she has no signs of septic nor hemorrhage or meningitis she is stable for discharge follow-up PCP and return if worsening. Discharge Plan Discharge Patient Disposition: Home Clinical Impression: Migraine Qualifiers: Migraine type: unspecified Status migrainosus presence: without status migrainosus Intractability: not intractable Qualified Code(s): G43.909 - Migraine, unspecified, not intractable, without status migrainosus Condition: Stable Prescriptions: No Action (DME) shoulder immobilizer See Rx Instructions .Route .MEDSUPPLY Qty: 1 0RF Rx Instructions: As directed Cortisporin-TC 3.3-3-10-0.5 mg/mL drops,suspension 1 applic EAR-BOTH Q6H PRN (Reason: UNKNOWN) Qty: 10 0RF Rx Instructions: apply to (cotton) wick; replace wick every 24 hours (DME) [place] J cervical collar See Rx Instructions .Route .MEDSUPPLY Qty: 1 0RF Rx Instructions: As directed albuterol sulfate 90 mcg/actuation HFA aerosol inhaler 2 inh INHALATION Q6H PRN (Reason: shortness of breath or wheezing) Qty: 8 0RF fluticasone propionate [Flonase Allergy Relief] 50 mcg/actuation spray,suspension 2 spray INTRANASAL BID PRN (Reason: nasal congestion) Qty: 18 0RF Rx Instructions: administer into each nostril twice daily as needed for congestion Discharge Orders: Discharge ED (Routine); Ordered 12/17/21 Ordered By: David Loco Referrals: Boom Welch DO [Primary Care Provider] - Discharge Diet: Advance as tolerated Discharge Activity: Resume usual activity Patient Instructions: Acute Headache (ED) Coding Level of Care Code ED Recreation Coordinator for Priscila Olmstead
[2021-12-17] MEDS: ketorolac 60 mg/2 mL INJ IM (20:24)
[2021-12-17] MEDS: promethazine 25 mg/mL SDV 1 mL IM (20:24)
[2021-12-17 20:35] VITALS: BP 131/81; PULSE 80; RESP 20; O2SAT 98
== END 2021-12-17 20:39 | disposition home or self-care (01) ==
PROVIDERS: Emergency Provider Emergency Medicine; PCP Internal Medicine
DX: G43.909 Migraine, unspecified, not intractable, without status migrainosus (principal)
CPT/HCPCS: 96372; 99283; J1885; J2550

== ENCOUNTER → 2022-01-02 10:45 | Outpatient (BNVA) | payer MEDICARE, OTHER, SELFPAY | PROVIDERS: Visit Provider Registered Nurse Neonatal Intensive Care | DX: M79.642 Pain in left hand (principal) | CPT/HCPCS: 73130 ==

== ENCOUNTER → 2022-01-13 13:22 | Outpatient (BNVA) | payer MEDICARE, OTHER, SELFPAY | PROVIDERS: PCP Family Medicine; Referring Provider Family Medicine; Visit Provider Nurse Practitioner Family | DX: M25.532 Pain in left wrist (principal); M79.642 Pain in left hand; S63.502A Unspecified sprain of left wrist, initial encounter; X58.XXXA Exposure to other specified factors, initial encounter | CPT/HCPCS: 73130; 99213; 99214 ==

== ENCOUNTER 2022-01-13 14:38 | Outpatient (CLI) | payer MEDICARE, OTHER, SELFPAY | END 2022-01-13 14:39 | disposition home or self-care (01) | LOC: SPT 14:38 | PROVIDERS: PCP Family Medicine; Visit Provider Nurse Practitioner Family | DX: Z46.89 Encounter for fitting and adjustment of other specified devices (principal); M25.532 Pain in left wrist | CPT/HCPCS: 97760; L3908 ==

== ENCOUNTER 2022-02-08 17:32 | Emergency (ER) | payer MEDICARE, OTHER, SELFPAY ==
[2022-02-08 17:45] VITALS: BP 152/101; PULSE 106; RESP 16; TEMP 37.1; O2SAT 97
--- NOTE | 2022-02-08 19:13 | W.ED.HA ---
HPI - Headache General: Chief Complaint: Headache Stated Complaint: migraine Time Seen by Provider: 02/08/22 18:59 Source: patient History of Present Illness: 42-year-old female well-known to the ER. She presents with a migraine headache for the last 3 days. She gets them frequently. She notes that symptoms are manageable at home until last night after a stressful situation her headache began to get worse. No vision changes. She is light sensitive. No fever. No recent illness. MD elicited complaint: headache and migraine Pertinent past history: migraines Onset (ago): day(s) (3) Onset description: gradually Location: diffuse Quality & Timing: aching and throbbing Exacerbating factors: light and noise Relieving factors: nothing Associated symptoms: Reports nausea; Deny chest pain, confusion, cough, eye pain, fever(s), loss of vision or vomiting Review of Systems Const: Denies: fever(s) Eyes: Reports: photophobia; Denies: change in vision ENMT: Denies: throat pain Card: Denies: chest pain Resp: Denies: dyspnea GI: Reports: nausea; Denies: vomiting Neuro: Reports: headache(s); Denies: numbness in extremities, weakness in extremities, dizziness or confusion PFSH ED PFSH: Medical History Left ureteral calculus Migraines No pertinent past medical history Surgical History S/P appendectomy Family History Mother , at age 65 Aortic aneurysm Social History Smoking and tobacco status: never smoked Alcohol intake: never Marital status: Current occupational status: disabled History of recent travel: No Female Reproductive History: Date of last menstrual period: 09/16/20 Physical Exam Const: GENERAL APPEARANCE: anxious; not ill appearing NUTRITIONAL APPEARANCE: obese ORIENTATION/CONSCIOUSNESS: Yes awake, Yes oriented to person and Yes oriented to time HENMT: COMMON NORMALS: normocephalic, atraumatic, TM's normal bilaterally and Normal external nose present HEAD & SCALP: normocephalic and atraumatic FACE & SINUS: normal facial exam and face symmetric NOSE: Normal external nose present TYMPANIC MEMBRANE: TM's normal bilaterally Eye: COMMON NORMALS: Equal, round and reactive pupils present and EOMs intact bilaterally PUPIL: Yes Equal, round and reactive pupils present Chest: CHEST: Yes Symmetrical chest wall rise Resp: COMMON NORMALS: normal respiratory effort, No use of accessory muscles and clear to auscultation bilaterally AUSCULTATION: clear to auscultation bilaterally Cardio: COMMON NORMALS: regular rate and regular rhythm RATE: regular rate RHYTHM: regular rhythm GI: COMMON NORMALS: Soft to palpation PALPATION: Yes Soft to palpation Extremity: COMMON NORMALS: no pedal edema Neuro: MORGAN COMA SCALE: document GCS findings Parshall coma scale eye opening: Spontaneous Parshall coma scale verbal response: Orientated Morgan coma scale motor response: Obey commands Parshall coma scale total score: 15 SENSORIUM/ORIENTATION: Yes oriented to person and Yes oriented to time CRANIAL NERVES: Yes CN normal except as noted COORDINATION/BALANCE: [id number] test normal SPEECH: speech normal MOTOR EXAM: 5/5 motor strength present throughout and Pronator motor function not present COORDINATION: [id number] test normal Course Vital Signs: Vital signs: Vital Signs Temperature 98.8 F 02/08/22 17:45 Pulse Rate 106 H 02/08/22 17:45 Respiratory Rate 16 02/08/22 17:45 Blood Pressure 152/101 02/08/22 17:45 Pulse Oximetry 97 02/08/22 17:45 MDM - Headache Medical Decision Making 42-year-old female with migraine headache. This is her normal type of migraine. We will use ketorolac and Phenergan which seemed to have worked well in the past. She has no neurological findings. Discharge Plan Discharge Patient Disposition: Home Clinical Impression: Migraine Condition: Stable Prescriptions: No Action (DME) shoulder immobilizer See Rx Instructions .Route .MEDSUPPLY Qty: 1 0RF Rx Instructions: As directed (DME) Cock-up Splint - left See Rx Instructions .Route .MEDSUPPLY Qty: 1 0RF Rx Instructions: As directed Cortisporin-TC 3.3-3-10-0.5 mg/mL drops,suspension 1 applic EAR-BOTH Q6H PRN (Reason: UNKNOWN) Qty: 10 0RF Rx Instructions: apply to (cotton) wick; replace wick every 24 hours [id number]-[id number] 3.5-10,000-10 mg-unit-mg/mL drops,suspension 1 drp ophthalmic (eye) BID Qty: 7.5 2RF Rx Instructions: One drop in each ear Two times a day. mupirocin 2 % ointment 1 applic topical BID Qty: 15 1RF (DME) Tiburcio Luo cervical collar See Rx Instructions .Route .MEDSUPPLY Qty: 1 0RF Rx Instructions: As directed albuterol sulfate 90 mcg/actuation HFA aerosol inhaler 2 inh INHALATION Q6H PRN (Reason: shortness of breath or wheezing) Qty: 8 0RF fluticasone propionate [Flonase Allergy Relief] 50 mcg/actuation spray,suspension 2 spray INTRANASAL BID PRN (Reason: nasal congestion) Qty: 18 0RF Rx Instructions: administer into each nostril twice daily as needed for congestion Discharge Orders: Discharge ED (Routine); Ordered 02/08/22 Ordered By: Cl Wick Referrals: Loco Melendez, [Primary Care Provider] - 4-7 days Patient Instructions: Migraine Headache (ED) Coding Level of Care Code ED Automobile Rental Clerk for Chg Fwd Exam Comprehensive
[2022-02-08] MEDS: ketorolac 60 mg/2 mL INJ IM (19:35)
[2022-02-08] MEDS: promethazine 25 mg/mL SDV 1 mL IM (19:36)
== END 2022-02-08 19:41 | disposition home or self-care (01) ==
PROVIDERS: Emergency Provider Emergency Medicine; PCP Family Medicine
DX: G43.909 Migraine, unspecified, not intractable, without status migrainosus (principal)
CPT/HCPCS: 96372; 99284; J1885; J2550

== ENCOUNTER → 2022-03-17 16:50 | Outpatient (BNVA) | payer MEDICARE, OTHER, SELFPAY | PROVIDERS: PCP Family Medicine; Visit Provider Registered Nurse Neonatal Intensive Care | DX: R05.9 Cough, unspecified (principal); H69.80 Other specified disorders of Eustachian tube, unspecified ear; H66.90 Otitis media, unspecified, unspecified ear; H65.05 Acute serous otitis media, recurrent, left ear | CPT/HCPCS: 87400; 87426 ==

== ENCOUNTER 2022-03-26 19:31 | Emergency (ER) | payer MEDICARE, OTHER, SELFPAY ==
[2022-03-26 19:45] VITALS: BP 145/90; PULSE 91; RESP 16; TEMP 37; O2SAT 97
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
[2022-03-26] MEDS: promethazine 25 mg/mL SDV 1 mL IM (20:33)
== END 2022-03-26 20:42 | disposition home or self-care (01) ==
PROVIDERS: Emergency Provider Nurse Practitioner Family; PCP Family Medicine
DX: H69.83 Other specified disorders of Eustachian tube, bilateral (principal); G43.909 Migraine, unspecified, not intractable, without status migrainosus; J30.9 Allergic rhinitis, unspecified; R11.0 Nausea; F17.210 Nicotine dependence, cigarettes, uncomplicated
CPT/HCPCS: 96372; 99284; J2550

== ENCOUNTER → 2022-04-07 16:58 | Outpatient (BNVA) | payer MEDICARE, OTHER, SELFPAY | PROVIDERS: PCP Family Medicine; Visit Provider Emergency Medicine | DX: J06.9 Acute upper respiratory infection, unspecified (principal) | CPT/HCPCS: 87400 ==

== ENCOUNTER 2022-04-11 20:12 | Emergency (ER) | payer MEDICARE, OTHER, SELFPAY ==
[2022-04-11 20:17] VITALS: BP 142/90; PULSE 97; RESP 18; TEMP 36.7; O2SAT 97
--- NOTE | 2022-04-11 22:15 | ED_ITS ---
HPI - Ear Problem General: Chief complaint: Ear Stated complaint: left ear pain, sore throat Time Seen by Provider: 04/11/22 22:14 History of Present Illness: 42-year-old female comes in today for complaints of bilateral ear pain. Patient states that she has a eustachian tube that ca uses irregular pressure in the ears and at times she will develop infections. Patient denies any fever or chills. Patient has been evaluated at urgent care clinic by Dr. Solano yesterday and was noted to have a upper respiratory infection. Patient appears nontoxic. Patient appears in mild pain. Associated symptoms: Reports ear or mastoid pain; Denies fever(s) Review of Systems Const: Denies: fever(s) ENMT: Reports: ear or mastoid pain PFSH ED PFSH: Medical History Left ureteral calculus Migraines No pertinent past medical history Surgical History S/P appendectomy Family History Mother , at age 65 Aortic aneurysm Social History Smoking and tobacco status: current every day smoker Alcohol intake: never Marital status: Current occupational status: disabled History of recent travel: No Female Reproductive History: Date of last menstrual period: 09/16/20 Physical Exam Const: COMMON NORMALS: alert HENMT: COMMON NORMALS: normocephalic and TM's normal bilaterally HEAD & SCALP: normocephalic TYMPANIC MEMBRANE: TM's normal bilaterally Resp: COMMON NORMALS: normal respiratory effort and clear to auscultation bilaterally AUSCULTATION: clear to auscultation bilaterally Cardio: COMMON NORMALS: regular rate and regular rhythm RATE: regular rate RHYTHM: regular rhythm Extremity: COMMON NORMALS: normal to inspection Neuro: SENSORIUM/ORIENTATION: Yes alert Skin: COMMON NORMALS: turgor normal GENERAL SKIN EXAM: turgor normal Course Vital Signs: Vital signs: Vital Signs Temperature 98.0 F 04/11/22 20:17 Pulse Rate 97 04/11/22 20:17 Respiratory Rate 18 04/11/22 20:17 Blood Pressure 142/90 04/11/22 20:17 Pulse Oximetry 97 04/11/22 20:17 Oxygen Delivery Me thod 04/11/22 20:17 MDM - Ear Medical Decision Making 42-year-old female comes in today for complaints of ear pain and nausea. On exam patient appears nontoxic. Bilateral TMs are clear. Abdomen soft nontend er. Differential diagnosis includes not limited to otitis serous, eustachian tube dysfunction, malingering. Most likely the patient is a malingerer. She did request a dose of promethazine to help with her nausea and discomfort. Patient was given 25 mg of promethazine IM and released to home. Patient should continue with routine care as directed. Patient stated understanding agreed to plan. Discharge Plan Discharge Patient Disposition: Home Clinical Impression: Nausea, Otalgia of both ears Condition: Stable Prescriptions: No Action albuterol sulfate 90 mcg/actuation HFA aerosol inhaler 2 inh INHALATION Q6H PRN (Reason: shortness of breath or wheezing) Qty: 8 0RF dbrjmfzx-dzxhusyqe-OQ 3.5-10,000-10 mg-unit-mg/mL drops,suspension 1 drp ophthalmic (eye) BID Qty: 7.5 2RF Rx Instructions: One drop in each ear Two times a day. mupirocin 2 % ointment 1 applic topical BID Qty: 15 1RF Cortisporin-TC 3.3-3-10-0.5 mg/mL drops,suspension 1 applic EAR-BOTH Q6H PRN (Reason: UNKNOWN) Qty: 10 0RF Rx Instructions: apply to (cotton) wick; replace wick every 24 hours fluticasone propionate [Flonase Allergy Relief] 50 mcg/actuation spray,suspension 2 spray INTRANASAL BID PRN (Reason: nasal congestion) Qty: 18 0RF Rx Instructions: administer into each nostril twice daily as needed for congestion Discharge Orders: Discharge ED (Routine); Ordered 04/11/22 Ordered By: Rojelio Ty Referrals: Loco Melendez DO [Primary Care Provider] - Patient Instructions: Earache (ED) Activity Restrictions/Additional Instructions: Home and rest. Activity as tolerated. Follow-up with primary care or e learning developer. Coding Level of Care Code ED Branch Service Representative for Chg Ishan
[2022-04-11] MEDS: promethazine 25 mg/mL SDV 1 mL IM (22:34)
== END 2022-04-11 22:35 | disposition home or self-care (01) ==
PROVIDERS: Emergency Provider Nurse Practitioner Family; PCP Family Medicine
DX: H92.03 Otalgia, bilateral (principal); R11.0 Nausea
CPT/HCPCS: 96372; 99284; J2550

== ENCOUNTER 2022-04-24 16:37 | Emergency (ER) | payer MEDICARE, OTHER, SELFPAY ==
[2022-04-24 17:13] VITALS: BMI 43.2
[2022-04-24 17:17] VITALS: BP 129/81; PULSE 97; RESP 18; TEMP 36.4; O2SAT 98
[2022-04-24] MEDS: promethazine 25 mg/mL SDV 1 mL IM (18:02)
--- NOTE | 2022-04-24 18:15 | ED_ITS ---
HPI - Headache General: Chief Complaint: Headache Stated Complaint: Headpain Time Seen by Provider: 04/24/22 17:39 History of Present Illness: Patient is in today for complaints of migraine. She reports that she has chronic ear problems and problems with her eustachian tube. She reports that she is allergic to every single antibiotic and can never take antibiotics for sinus and ear infections. She reports that she has been to footwear sales associate all over the state of [place] and nobody can do anything for her. She states that when her head gets this bad she ends up in a full-blown migraine. She rates her pain as a 7 out of 10 right now and states that it is her typical migraine type pain. Reports that she cannot take anything with Tylenol and aspirin in it. She reports that the only thing that helps her head is Phenergan. She reports that she is not having any difficulty seeing but she does have some sensitivity to light. She denies any nausea or vomiting. Associated symptoms: Deny chest pain, confusion or fever(s) Review of Systems Const: Denies: fever(s), chills or body aches Eyes: Reports: photophobia ENMT: Reports: ear or mastoid pain, nasal congestion and post nasal drip Card: Denies: chest pain or palpitations Resp: Denies: dyspnea or wheezing Neuro: Reports: headache(s); Denies: numbness in extremities, weakness in extremities, sensory changes, lack of coordination, difficulty walking, dizziness, vertigo, confusion, Slurred speech present or difficulty communicating thoughts [facility] ED PFSH: Medical History Left ureteral calculus Migraines No pertinent past medical history Surgical History S/P appendectomy Family History Mother , at age 65 Aortic aneurysm Social History Smoking and tobacco status: current every day smoker Alcohol intake: never Marital status: Current occupational status: disabled History of recent travel: No Female Reproductive History: Date of last menstrual period: 02/22/21 Spontaneous abortions: No Physical Exam Const: COMMON NORMALS: no acute distress, patient oriented x3 and alert HENMT: COMMON NORMALS: external ears normal, TM's normal bilaterally and Normal external nose present FACE & SINUS: normal facial exam and sinus tenderness maxillary NOSE: Normal external nose present, Normal nares present and Nasal discharge present clear EXTERNAL EAR: Yes external ears normal TYMPANIC MEMBRANE: TM's normal bilaterally Resp: COMMON NORMALS: normal respiratory effort, No use of accessory muscles and clear to auscultation bilaterally AUSCULTATION: clear to auscultation bilaterally Cardio: COMMON NORMALS: regular rate, regular rhythm, S1 normal heart sound present, S2 normal heart sound present and No murmurs present (Cardio) RATE: regular rate RHYTHM: regular rhythm HEART SOUNDS: S1 normal heart sound present and S2 normal heart sound present Neuro: COMMON NORMALS: patient oriented x3 SENSORIUM/ORIENTATION: Yes alert Course Vital Signs: Vital signs: Vital Signs Temperature 97.5 F L 04/24/22 17:17 Pulse Rate 97 04/24/22 17:17 Respiratory Rate 18 04/24/22 17:17 Blood Pressure 129/81 04/24/22 17:17 Pulse Oximetry 98 04/24/22 17:17 Oxygen Delivery Me thod 04/24/22 17:17 MDM - Headache Medical Decision Making Patient is in for headache she reports secondary to sinus, allergy, eustachian tube dysfunction. Reports that she does follow with her primary care provider and she is being sent to an delphi developer since she has allergy reported to every single antibiotic. She reports that they are scheduling that appointment but she does not have a date or time yet. He states that the only thing that helps her head pain is Phenergan and she only does that when it gets severe. Physical exam reveals cranial nerves intact grossly 2 through 12. Vital signs are stable. Patient is given 25 mg of Phenergan IM x1 dose and here today. I monitored patient for 30 minutes afterwards and she reports that her head pain was improving but it generally takes 1 to 2 hours. Patient is discharged to home. Advised patient that she should follow-up with her primary care provider and follow through with allergy consult. I encouraged her to continue using [place] pot and other conservative measures to control her nasal allergies and help with eustachian tube dysfunction. Return to the ER as needed for new or worsening symptoms, worsening headache, changes in vision, vomiting. Discharge Plan Discharge Patient Disposition: Home Clinical Impression: Migraine, Sinusitis Condition: Stable Prescriptions: No Action albuterol sulfate 90 mcg/actuation HFA aerosol inhaler 2 inh INHALATION Q6H PRN (Reason: shortness of breath or wheezing) Qty: 8 0RF mupirocin 2 % ointment 1 applic topical BID Qty: 15 1RF hsugnxip-shzpeueln-GM 3.5-10,000-10 mg-unit-mg/mL drops,suspension 1 drp ophthalmic (eye) BID Qty: 7.5 2RF Rx Instructions: One drop in each ear Two times a day. Cortisporin-TC 3.3-3-10-0.5 mg/mL drops,suspension 1 applic EAR-BOTH Q6H PRN (Reason: UNKNOWN) Qty: 10 0RF Rx Instructions: apply to (cotton) wick; replace wick every 24 hours fluticasone propionate [Flonase Allergy Relief] 50 mcg/actuation spray, suspension 2 spray INTRANASAL BID PRN (Reason: nasal congestion) Qty: 18 0RF Rx Instructions: administer into each nostril twice daily as needed for congestion Discharge Orders: Discharge ED (Routine); Ordered 04/24/22 Ordered By: Tierra Cooper Referrals: Loco Melendez DO [Primary Care Provider] - Discharge Diet: Usual diet Discharge Activity: Resume usual activity Patient Instructions: Sinusitis (ED), Allergies (ED) Activity Restrictions/Additional Instructions: Continue [place] pot at home to help with your allergies and eustachian tube dysfunction. Continue follow-up with your primary care provider. Continue consult with delphi developer. Return to ER for new or worsening symptoms including, but not limited to, increased head pain, changes in vision, vomiting. Coding Level of Care Code ED Strap Maker for [employer] Fwd Exam Expanded Problem Focused
== END 2022-04-24 18:40 | disposition home or self-care (01) ==
PROVIDERS: Emergency Provider Nurse Practitioner Family; PCP Family Medicine
DX: G43.909 Migraine, unspecified, not intractable, without status migrainosus (principal); J32.9 Chronic sinusitis, unspecified; F17.210 Nicotine dependence, cigarettes, uncomplicated
CPT/HCPCS: 96372; 99284; J2550

== ENCOUNTER → 2022-05-13 10:53 | Outpatient (BNVA) | payer MEDICARE, OTHER, SELFPAY | PROVIDERS: PCP Family Medicine; Visit Provider Family Medicine | DX: E66.01 Morbid (severe) obesity due to excess calories (principal); Z68.41 Body mass index [BMI] 40.0-44.9, adult; E11.9 Type 2 diabetes mellitus without complications; E11.65 Type 2 diabetes mellitus with hyperglycemia | CPT/HCPCS: 80053; 80061; 83036; 84443; 85025 ==

== ENCOUNTER → 2022-05-17 16:13 | Outpatient (BNVA) | payer MEDICARE, OTHER, SELFPAY | PROVIDERS: PCP Family Medicine; Visit Provider Nurse Practitioner | DX: R11.10 Vomiting, unspecified (principal); H69.80 Other specified disorders of Eustachian tube, unspecified ear; J06.9 Acute upper respiratory infection, unspecified | CPT/HCPCS: 87400 ==

== ENCOUNTER 2022-05-29 02:40 | Emergency (ER) | payer MEDICARE, OTHER, SELFPAY ==
[2022-05-29 02:42] VITALS: BP 122/84; PULSE 79; RESP 16; TEMP 36.8; O2SAT 98; BMI 34.3
--- NOTE | 2022-05-29 02:45 | XRR_ITS ---
PROCEDURE INFORMATION: Exam: XR Chest Exam date and time: 05/29/2022 2:49 AM Age: 42 years old Clinical indication: Chest pressure; Patient HX: C/O chest pain; Additional info: Cp TECHNIQUE: Imaging protocol: Radiologic exam of the chest. Views: 1 view. COMPARISON: CR XR chest 1V portable [id number] 09/24/2021 11:13 PM FINDINGS: Tubes, catheters and devices: EKG monitoring leads overlie the thoracic wall. Lungs: There are mild bibasilar atelectatic changes. There is no evidence of focal pulmonary consolidation. Pleural spaces: No pleural effusion or pneumothorax. Heart/Mediastinum: The heart is top-normal in size. Bones/joints: No acute fracture is identified. XR/XR chest 1V portable [id number] IMPRESSION: Mild bibasilar atelectatic changes.
--- NOTE | 2022-05-29 02:47 | ECG_ITS ---
[facility] Test Date: 2022-05-29 Pat Name: Elie Salas Department: Room: Gender: Female Rand Sewer: : 1980 Requested By: David Loco Order Number: [id number] Toñito MD: Sofy Monteiro M.D. Measurements Intervals [place] Rate: 75 P: 56 VT: 175 QRS: 24 QRSD: 93 T: 19 QT: 360 QTc: 404 Interpretive Statements SINUS RHYTHM POSSIBLE RIGHT VENTRICULAR CONDUCTION DELAY [RSR (QR) IN V1/V2] No previous ECG available for comparison Electronically Signed On 05-29-2022 10:44:43 CDT by Sofy Monteiro M.D. [id number]
--- NOTE | 2022-05-29 02:51 | ED_ITS ---
HPI - Chest Pain General: Chief Complaint: Chest Pain Stated Complaint: CP Time Seen by Provider: 05/29/22 02:41 Source: patient and EMS Mode of arrival: EMS Limitations: no limitations History of Present Illness: 42-year-old female states she is having a nightmare tonight when she woke up and felt like she cannot catch her breath and her heart was racing states she has had anxiety attacks before and this felt the same but she cannot get her breathing under control so she called EMS states she feels much improved currently lasted roughly 10 minutes she denies any pain currently denies any vomiting or diarrhea Associated symptoms: Reports dyspnea; Deny abdominal pain, fever(s), nausea or vomiting Review of Systems Const: Denies: fever(s), chills, body aches or change in appetite Eyes: Denies: blurry vision or eye discomfort ENMT: Denies: throat pain or dental pain Card: Denies: chest pain Resp: Reports: dyspnea GI: Denies: abdominal pain, nausea, vomiting or diarrhea : Denies: dysuria Musc: Denies: neck pain or back pain Skin/Breast: Denies: rash Neuro: Denies: headache(s) Psych: Reports: anxiety [place]/Lymph: Denies: easy bruising All/Imm: Denies: urticaria PFSH ED PFSH: Medical History Left ureteral calculus Migraines No pertinent past medical history Surgical History S/P appendectomy Family History Mother , at age 65 Aortic aneurysm Social History Smoking and tobacco status: never smoked Alcohol intake: never Marital status: Current occupational status: disabled History of recent travel: No Female Reproductive History: Date of last menstrual period: 09/16/20 Spontaneous abortions: No Physical Exam Const: COMMON NORMALS: no acute distress, patient oriented x3 and healthy yannick earing GENERAL APPEARANCE: anxious HENMT: COMMON NORMALS: normocephalic and atraumatic HEAD & SCALP: normocephalic and atraumatic Eye: COMMON NORMALS: Equal, round and reactive pupils present and EOMs intact bilaterally PUPIL: Yes Equal, round and reactive pupils present Neck/C-Spine: COMMON NORMALS: full ROM and supple Chest: COMMONS NORMALS: normal inspection of the chest and normal palpation of entire chest wall Resp: COMMON NORMALS: normal respiratory effort, No retractions, No use of accessory muscles and clear to auscultation bilaterally AUSCULTATION: clear to auscultation bilaterally Cardio: COMMON NORMALS: regular rate, regular rhythm and No murmurs present (Cardio) RATE: regular rate RHYTHM: regular rhythm GI: COMMON NORMALS: Normal to inspection, nondistended, normoactive bowel sounds present, Soft to palpation, non-tender and no masses PALPATION: Yes Soft to palpation Extremity: COMMON NORMALS: normal to inspection and full ROM Neuro: COMMON NORMALS: patient oriented x3, moves all extremities and no focal motor deficits Psych: COMMON NORMALS: mental status grossly normal, Normal thought process present and cooperative THOUGHT PROCESS: Normal thought process present Skin: COMMON NORMALS: no rashes or lesions noted and no wounds GENERAL SKIN EXAM: no rashes or lesions noted Course Vital Signs: Vital signs: Vital Signs Temperature 98.3 F 05/29/22 02:42 Pulse Rate 82 05/29/22 03:17 Respiratory Rate 16 05/29/22 03:17 Blood Pressure 123/70 05/29/22 03:17 Pulse Oximetry 95 05/29/22 03:17 Oxygen Delivery Me thod 05/29/22 02:42 MDM - Chest Pain Medical Decision Making Patient presents here with a panic attack from a nightmare she is well-appearing here EKG x-ray is normal no signs of cardiac cause she is stable for discharge she is to follow-up with PCP and return if worsening. EKG Data EKG 1: I personally reviewed and interpreted this EKG as follows: EKG interpretation date: 05/29/22 EKG interpretation time: 02:47 Interpretation: nsr hr [address] or t wave abnormalities qrs 93 qtc 389 Discharge Plan Discharge Patient Disposition: Home Clinical Impression: Anxiety attack Condition: Stable Prescriptions: No Action albuterol sulfate 90 mcg/actuation HFA aerosol inhaler 2 inh INHALATION Q6H PRN (Reason: shortness of breath or wheezing) Qty: 8 0RF mupirocin 2 % ointment 1 applic topical BID Qty: 15 1RF fluticasone propionate [Flonase Allergy Relief] 50 mcg/actuation spray,suspension 2 spray INTRANASAL BID PRN (Reason: nasal congestion) Qty: 18 1RF Rx Instructions: administer into each nostril twice daily as needed for congestion promethazine-DM 6.25-15 mg/5 mL syrup 5 ml PO Q6H PRN (Reason: cough) Qty: 118 0RF akewoyud-qquaxxvoe-KX 3.5-10,000-10 mg-unit-mg/mL drops,suspension 1 drp ophthalmic (eye) BID Qty: 7.5 2RF Rx Instructions: One drop in each ear Two times a day. Cortisporin-TC 3.3-3-10-0.5 mg/mL drops,suspension 1 applic EAR-BOTH Q6H PRN (Reason: UNKNOWN) Qty: 10 0RF Rx Instructions: apply to (cotton) wick; replace wick every 24 hours miscellaneous medical supply Misc 1 ea miscellaneous DAILY Qty: 1 0RF Rx Instructions: Please evaluate and issue Custom AFO for Left foot. (DME) One Touch Glucometer See Rx Instructions .Route .MEDSUPPLY Qty: 1 0RF Rx Instructions: Please issue One Touch glucometer for twice daily blood glucose testing. (DME) Diabetes testing supplies See Rx Instructions .Route .MEDSUPPLY Qty: 1 0RF Rx Instructions: Please issue glucose testing strips, lancets, control solution, alcohol prep pads, etc for twice daily testing. Discharge Orders: Discharge ED (Routine); Ordered 05/29/22 Ordered By: David Loco Referrals: Loco Melendez DO [Primary Care Provider] - 1-3 days Discharge Diet: Advance as tolerated Discharge Activity: Resume usual activity Patient Instructions: Anxiety (ED) Coding Level of Care Code ED Hardness Tester for Chg Fwd Exam Comprehensive
[2022-05-29] MEDS: promethazine 25 mg/mL SDV 1 mL IM (02:53)
[2022-05-29 03:17] VITALS: BP 123/70; PULSE 82; RESP 16; O2SAT 95
== END 2022-05-29 03:18 | disposition home or self-care (01) ==
PROVIDERS: Emergency Provider Emergency Medicine; PCP Family Medicine
DX: F41.9 Anxiety disorder, unspecified (principal)
CPT/HCPCS: 71045; 93005; 96372; 99284; J2550

== ENCOUNTER → 2022-06-05 13:31 | Outpatient (BNVA) | payer MEDICARE, SELFPAY | PROVIDERS: PCP Family Medicine; Visit Provider Registered Nurse Neonatal Intensive Care | DX: R50.9 Fever, unspecified (principal); J06.9 Acute upper respiratory infection, unspecified; H69.80 Other specified disorders of Eustachian tube, unspecified ear | CPT/HCPCS: 87400; 87426 ==

== ENCOUNTER 2022-07-20 22:00 | Emergency (ER) | payer MEDICARE, OTHER, SELFPAY ==
[2022-07-20 22:07] VITALS: BP 139/90; PULSE 90; RESP 18; TEMP 36.7; O2SAT 99; BMI 42.9
--- NOTE | 2022-07-20 22:10 | ED_ITS ---
HPI - Headache General: Chief Complaint: Headache Stated Complaint: Migrane Time Seen by Provider: 07/20/22 22:05 History of Present Illness: 42-year-old female comes in today for complaints of exacerbation of migraine headaches, nausea with vomiting, ear pain, and chest congestion. Patient appears nontoxic. Patient appears in mild to moderate discomfort. Patient has a history of recurrent migraines, chronic ear pain, asthma. Associated symptoms: Deny fever(s) Review of Systems General: Reports: 10 or more systems reviewed and unremarkable except in HPI and below Const: Denies: fever(s) ENMT: Reports: ear or mastoid pain Resp: Reports: non-productive cough Neuro: Reports: headache(s) PFSH ED PFSH: Medical History Left ureteral calculus Migraines No pertinent past medical history Surgical History S/P appendectomy Family History Mother , at age 65 Aortic aneurysm Social History Smoking and tobacco status: never smoked Alcohol intake: never Marital status: Current occupational status: disabled History of recent travel: No Female Reproductive History: Date of last menstrual period: 09/16/20 Spontaneous abortions: No Physical Exam Const: COMMON NORMALS: alert HENMT: COMMON NORMALS: normocephalic and TM's normal bilaterally HEAD & SCALP: normocephalic TYMPANIC MEMBRANE: TM's normal bilaterally THROAT: posterior oropharynx normal Neck/C-Spine: COMMON NORMALS: full ROM Resp: COMMON NORMALS: normal respiratory effort and clear to auscultation bilaterally AUSCULTATION: clear to auscultation bilaterally Cardio: COMMON NORMALS: regular rate and regular rhythm RATE: regular rate RHYTHM: regular rhythm GI: COMMON NORMALS: Soft to palpation PALPATION: Yes Soft to palpation : COMMON NORMALS: Yes no CVA tenderness BLADDER/KIDNEY EXAM: Yes no CVA tenderness Back/Pelvis: COMMON NORMALS: no CVA tenderness Extremity: COMMON NORMALS: normal to inspection Neuro: SENSORIUM/ORIENTATION: Yes alert Skin: COMMON NORMALS: turgor normal GENERAL SKIN EXAM: turgor normal Course Vital Signs: Vital signs: Vital Signs Temperature 98.1 F 07/20/22 22:07 Pulse Rate 90 07/20/22 22:07 Respiratory Rate 18 07/20/22 22:07 Blood Pressure 139/90 07/20/22 22:07 Pulse Oximetry 99 07/20/22 22:07 Oxygen Delivery Me thod 07/20/22 22:07 MDM - Headache Medical Decision Making Pain,42-year-old female comes in today with complaints of migraine headache, and occasional cough. On exam bilateral tympanic membranes and ear canals were clear. Posterior pharynx shows some slight clear drainage. Lungs are clear to auscultation. Abdomen soft nontender. Differential diagnosis includes asthma, migraine headache, otitis media, malingering. Patient was treated for her migraine headache with promethazine 25 mg. Refills were written for her Cortisporin otic suspension that she uses for ear pain, and refills for albuterol nebulizer solution. Patient reports understanding of care plan need for follow-up with primary care at scheduled appointment, return to ED for new concerns. Discharge Plan Discharge Patient Disposition: Home Clinical Impression: Asthma Migraine Qualifiers: Migraine type: unspecified Status migrainosus presence: without status migrainosus Intractability: not intractable Qualified Code(s): G43.909 - Migraine, unspecified, not intractable, without status migrainosus ETD (eustachian tube dysfunction) Qualifiers: Laterality: bilateral Qualified Code(s): H69.83 - Other specified disorders of Eustachian tube, bilateral Condition: Stable Prescriptions: New ipratropium-albuterol 0.5 mg-3 mg(2.5 mg base)/3 mL solution for nebulization 3 ml inhalation QID PRN (Reason: shortness of breath or wheezing) Qty: 90 1RF Continued Cortisporin-TC 3.3-3-10-0.5 mg/mL drops,suspension 1 applic EAR-BOTH Q6H PRN (Reason: UNKNOWN) Qty: 10 0RF Rx Instructions: apply to (cotton) wick; replace wick every 24 hours No Action mupirocin 2 % ointment 1 applic topical BID Qty: 15 1RF promethazine-DM 6.25-15 mg/5 mL syrup 5 ml PO Q6H PRN (Reason: cough) Qty: 118 0RF tvtdwuem-ngaazslsx-AP 3.5-10,000-10 mg-unit-mg/mL drops,suspension 1 drp ophthalmic (eye) BID Qty: 7.5 2RF Rx Instructions: One drop in each ear Two times a day. miscellaneous medical supply Misc 1 ea miscellaneous DAILY Qty: 1 0RF Rx Instructions: Please evaluate and issue Custom AFO for Left foot. fluticasone propionate [Flonase Allergy Relief] 50 mcg/actuation spray,suspension 2 spray INTRANASAL BID PRN (Reason: nasal congestion) Qty: 18 1RF Rx Instructions: administer into each nostril twice daily as needed for congestion (DME) One Touch Glucometer See Rx Instructions .Route .MEDSUPPLY Qty: 1 0RF Rx Instructions: Please issue One Touch glucometer for twice daily blood glucose testing. (DME) Diabetes testing supplies See Rx Instructions .Route .MEDSUPPLY Qty: 1 0RF Rx Instructions: Please issue glucose testing strips, lancets, control solution, alcohol prep pads, etc for twice daily testing. albuterol sulfate 90 mcg/actuation HFA aerosol inhaler See Rx Instructions .ROUTE .COMPLEX Qty: 8.5 2RF Dose Instruction: INHALE 2 PUFFS BY MOUTH EVERY 6 HOURS NEEDED FOR SHORTNESS OF BREATH OR WHEEZING Rx Instructions: INHALE 2 PUFFS BY MOUTH EVERY 6 HOURS NEEDED FOR SHORTNESS OF BREATH OR WHEEZING Discharge Orders: Discharge ED (Routine); Ordered 07/20/22 Ordered By: Rojelio Ty Referrals: Loco Melendez, [Primary Care Provider] - Discharge Diet: Usual diet Discharge Activity: Increase activity as tolerated Patient Instructions: General Headache (ED) Activity Restrictions/Additional Instructions: Medications as needed. Follow-up with primary care for further instruction. Return to ED for worsening symptoms or new concerns. Coding Level of Care Code ED Senior Web Designer for Priscila Olmstead
[2022-07-20] MEDS: promethazine 25 mg/mL SDV 1 mL IM (22:33)
== END 2022-07-20 22:47 | disposition home or self-care (01) ==
PROVIDERS: Emergency Provider Nurse Practitioner Family; PCP Family Medicine
DX: G43.909 Migraine, unspecified, not intractable, without status migrainosus (principal); J45.909 Unspecified asthma, uncomplicated; H69.83 Other specified disorders of Eustachian tube, bilateral
CPT/HCPCS: 96372; 99284; J2550

== ENCOUNTER → 2022-09-29 15:18 | Outpatient (BNVA) | payer MEDICARE, SELFPAY | PROVIDERS: PCP Family Medicine; Visit Provider Family Medicine | DX: R68.89 Other general symptoms and signs (principal); E11.9 Type 2 diabetes mellitus without complications; A08.4 Viral intestinal infection, unspecified | CPT/HCPCS: 87400 ==

== ENCOUNTER 2022-12-01 17:16 | Emergency (ER) | payer MEDICARE, OTHER, SELFPAY ==
[2022-12-01 17:21] VITALS: BP 136/80; PULSE 78; RESP 18; O2SAT 97
--- NOTE | 2022-12-01 18:12 | ED_ITS ---
HPI - Headache General: Chief Complaint: Headache Stated Complaint: head pain Time Seen by Provider: 12/01/22 17:39 History of Present Illness: 42-year-old female comes in today with migraine headache. On exam patient appears nontoxic. Patient reports has been under stress more lately and that has exacerbated her migraine. Patient also would like her ears reevaluated due to a prior otitis serous infection. Associated symptoms: Reports nausea; Deny chest pain or fever(s) Review of Systems General: Reports: 10 or more systems reviewed and unremarkable except in HPI and below Const: Denies: fever(s) ENMT: Reports: ear or mastoid pain Card: Denies: chest pain Resp: Denies: dyspnea GI: Reports: nausea Neuro: Reports: headache(s) PFSH ED PFSH: Medical History Left ureteral calculus Migraines No pertinent past medical history Surgical History S/P appendectomy Family History Mother , at age 65 Aortic aneurysm Social History Smoking and tobacco status: never smoked Alcohol intake: never Marital status: Current occupational status: disabled Female Reproductive History: Spontaneous abortions: No Physical Exam Const: COMMON NORMALS: alert HENMT: COMMON NORMALS: normocephalic and TM's normal bilaterally HEAD & SCALP: normocephalic TYMPANIC MEMBRANE: TM's normal bilaterally Neck/C-Spine: COMMON NORMALS: full ROM Resp: COMMON NORMALS: normal respiratory effort Cardio: COMMON NORMALS: regular rate and regular rhythm RATE: regular rate RHYTHM: regular rhythm Extremity: COMMON NORMALS: no pedal edema Neuro: SENSORIUM/ORIENTATION: Yes alert Skin: COMMON NORMALS: turgor normal GENERAL SKIN EXAM: turgor normal Course Vital Signs: Vital signs: Vital Signs Pulse Rate 78 12/01/22 17:21 Respiratory Rate 18 12/01/22 17:21 Blood Pressure 136/80 12/01/22 17:21 Pulse Oximetry 97 12/01/22 17:21 Oxygen Delivery Me thod Room Air 12/01/22 17:21 MDM - Headache Medical Decision Making 42-year-old female comes in today with complaints of headache. On exam patient appears nontoxic. No focal neural deficits are noted. Patient moves all extremities well. Bilateral TMs are clear. Posterior pharynx is pink and moist. Respirations are even lungs are clear to auscultation. No edema is noted in the extremities. Differential diagnosis includes tension headache, migraine headache, sinusitis. Patient is known to this clinician for frequent migraine headaches that she takes promethazine and sometimes ketorolac. Patient reports just migraine and needing only promethazine. I also evaluated patient's ears due to her recent treatment for otitis serous. Encourage continued routine medications. Patient reported understanding and agreed to plan. Discharge Plan Discharge Patient Disposition: Home Clinical Impression: Migraines Qualifiers: Migraine type: unspecified Status migrainosus presence: without status migrainosus Intractability: not intractable Qualified Code(s): G43.909 - Migraine, unspecified, not intractable, without status migrainosus Condition: Stable Prescriptions: No Action promethazine-DM 6.25-15 mg/5 mL syrup 5 ml PO Q6H PRN (Reason: cough) Qty: 118 0RF miscellaneous medical supply Misc 1 ea miscellaneous DAILY Qty: 1 0RF Rx Instructions: Please evaluate and issue Custom AFO for Left foot. triamcinolone acetonide 0.1 % cream 1 applic topical DAILY Qty: 30 1RF (DME) Diabetes testing supplies See Rx Instructions .Route .MEDSUPPLY Qty: 1 11RF Rx Instructions: Please issue glucose testing strips, lancets, control solution, alcohol prep pads, etc for four times daily testing. (DME) Dexcom G7 Building Code Inspector Misc See Rx Instructions .Route Qty: 1 0RF Rx Instructions: As directed (DME) Dexcom G7 Sensor Device See Rx Instructions .Route Qty: 1 5RF Rx Instructions: As directed promethazine-DM 6.25-15 mg/5 mL syrup 5 ml PO Q6H PRN (Reason: cough) Qty: 118 0RF lteqwgau-rbmfjlvcp-MI 3.5-10,000-1 mg/mL-unit/mL-% drops,suspension See Rx Instructions .ROUTE .COMPLEX Qty: 10 0RF Dose Instruction: APPLY 1 APPLICATION TO AFFECTED EAR EVERY 6 HOURS NEEDED. APPLY TO COTTON WICK, REPLACE WICK EVERY 24HRS Rx Instructions: APPLY 1 APPLICATION TO AFFECTED EAR EVERY 6 HOURS NEEDED. APPLY TO COTTON WICK, REPLACE WICK EVERY 24HRS fluticasone propionate 50 mcg/actuation spray,suspension See Rx Instructions .ROUTE .COMPLEX Qty: 16 1RF Dose Instruction: USE 2 SPRAYS IN EACH NOSTRIL TWICE DAILY NEEDED FOR CONGESTION Rx Instructions: USE 2 SPRAYS IN EACH NOSTRIL TWICE DAILY NEEDED FOR CONGESTION (DME) One Touch Glucometer See Rx Instructions .Route .MEDSUPPLY Qty: 1 0RF Rx Instructions: Please issue One Touch glucometer for twice daily blood glucose testing. albuterol sulfate 90 mcg/actuation HFA aerosol inhaler See Rx Instructions .ROUTE .COMPLEX Qty: 8.5 2RF Dose Instruction: INHALE 2 PUFFS BY MOUTH EVERY 6 HOURS NEEDED FOR SHORTNESS OF BREATH OR WHEEZING Rx Instructions: INHALE 2 PUFFS BY MOUTH EVERY 6 HOURS NEEDED FOR SHORTNESS OF BREATH OR WHEEZING mupirocin 2 % ointment See Rx Instructions .ROUTE .COMPLEX Qty: 22 1RF Dose Instruction: APPLY TO AFFECTED AREA TWICE A DAY Rx Instructions: APPLY TO AFFECTED AREA TWICE A DAY montelukast 5 mg tablet,chewable 5 mg PO DAILY Qty: 90 2RF Cortisporin-TC 3.3-3-10-0.5 mg/mL drops,suspension 1 applic EAR-BOTH Q6H PRN (Reason: UNKNOWN) Qty: 10 0RF Rx Instructions: apply to (cotton) wick; replace wick every 24 hours ipratropium-albuterol 0.5 mg-3 mg(2.5 mg base)/3 mL solution for nebulization 3 ml inhalation QID PRN (Reason: shortness of breath or wheezing) Qty: 90 1RF Discharge Orders: Discharge ED (Routine); Ordered 12/01/22 Ordered By: Rojelio Ty Referrals: Loco Melendez, [Primary Care Provider] - Discharge Diet: Usual diet Discharge Activity: Increase activity as tolerated Patient Instructions: Migraine Headache (ED) Activity Restrictions/Additional Instructions: Home and rest. Drink plenty of water and fluids. Activity as tolerated. Follow-up with primary care as needed. Return to ED for new concerns or worsening symptoms. Coding Level of Care Code ED Livestock Farm Manager for Priscila Olmstead
[2022-12-01] MEDS: promethazine 25 mg/mL SDV 1 mL IM (18:27)
== END 2022-12-01 18:34 | disposition home or self-care (01) ==
PROVIDERS: Emergency Provider Nurse Practitioner Family; PCP Family Medicine
DX: G43.909 Migraine, unspecified, not intractable, without status migrainosus (principal)
CPT/HCPCS: 96372; 99284; J2550

== ENCOUNTER 2023-01-16 21:03 | Emergency (ER) | payer MEDICARE, OTHER, SELFPAY ==
[2023-01-16 21:06] VITALS: BP 140/87; PULSE 98; RESP 18; TEMP 36.7; O2SAT 99
--- NOTE | 2023-01-16 22:50 | PC.NURSE ---
Pt resting in wheelchair, has been wheeling herself around the waiting room. Pt requests a snack, ham sandwich provided.
[2023-01-16 23:11] VITALS: BP 147/99; PULSE 86; RESP 19; TEMP 36.2; O2SAT 98
[2023-01-17] MEDS: dexamethasone 4 mg Tablet 8 MG PO (00:29)
[2023-01-17] MEDS: promethazine 25 mg/mL SDV 1 mL IM (00:30)
[2023-01-17 02:20] LABS: Adenovirus Not Detected (NOT DETECT); Chlamydia Pneumoniae Not Detected (NOT DETECT); Coronavirus 229E,HKU1,NL63,OC4 Not Detected (NOT DETECT); Human Metapneumovirus Not Detected (NOT DETECT); Human Rhinovirus/Enterovirus Not Detected (NOT DETECT); Influenza A Not Detected (NOT DETECT); Influenza A H1 Not Detected (NOT DETECT); Influenza A H1-2009 Not Detected (NOT DETECT); Influenza A H3 Not Detected (NOT DETECT); Influenza B Not Detected (NOT DETECT); Mycoplasma Pneumoniae Not Detected (NOT DETECT); Parainfluenza Virus Type 1 Not Detected (NOT DETECT); Parainfluenza Virus Type 2 Not Detected (NOT DETECT); Parainfluenza Virus Type 3 Not Detected (NOT DETECT); Parainfluenza Virus Type 4 Not Detected (NOT DETECT); Respiratory Syncytial Virus A Not Detected (NOT DETECT); Respiratory Syncytial Virus B Not Detected (NOT DETECT); SARS-COV-2 Not Detected (NOT DETECT)
--- NOTE | 2023-01-17 15:20 | W.ED.URI ---
HPI - URI/Sore Throat General: Chief Complaint: Upper Respiratory Infection Stated Complaint: vomiting/migraines Time Seen by Provider: 01/17/23 00:04 History of Present Illness: 42 year old female well known to the emergency department service. She presents with upper respiratory symptoms including fullness of the ears, some facial pain and some congestion. She was seen three days ago in the urgent care setting. She was told she had a viral symptoms. She hasn't used anything for treatment except her home flonase. She notes that her symptoms aren't really improving. MD elicited complaint: nasal congestion, sinus pain and other Pertinent past history: other Onset (ago): day(s) Consistency: constant Severity: moderate Able to tolerate fluids by mouth: Yes Relieving factors: nothing Associated symptoms: Reports chills, congestion, cough, headache(s), nasal congestion, rhinorrhea and sinus pain; Deny abdominal pain, chest pain, fever(s), short of breath, stiffness or vomiting Review of Systems Const: Reports: chills; Denies: fever(s) Eyes: Denies: change in vision ENMT: Reports: throat pain, nasal congestion and sinus pain Card: Denies: chest pain Resp: Reports: non-productive cough; Denies: dyspnea GI: Denies: abdominal pain or vomiting Neuro: Reports: headache(s) Psych: Reports: anxiety PFSH ED PFSH: Medical History Left ureteral calculus Migraines No pertinent past medical history Surgical History S/P appendectomy Family History Mother , at age 65 Aortic aneurysm Social History Smoking and tobacco status: never smoked Alcohol intake: never Marital status: Current occupational status: disabled Female Reproductive History: Spontaneous abortions: No Physical Exam Const: COMMON NORMALS: no acute distress GENERAL APPEARANCE: cooperative; not ill appearing and not frail appearing HENMT: COMMON NORMALS: normocephalic, atraumatic, TM's normal bilaterally (scarring present. no acute findings. ) and Normal external nose present HEAD & SCALP: normocephalic and atraumatic FACE & SINUS: normal facial exam and face symmetric NOSE: Normal external nose present, Abnormal mucous membranes and turbinates present boggy and erythematous and Nasal discharge present TYMPANIC MEMBRANE: TM's normal bilaterally (scarring present. no acute findings. ) MOUTH: Normal oral and palatal mucosa present THROAT: postnasal drainage Eye: COMMON NORMALS: Equal, round and reactive pupils present and EOMs intact bilaterally PUPIL: Yes Equal, round and reactive pupils present Neck/C-Spine: GENERAL: Yes trachea midline Chest: CHEST: Yes Symmetrical chest wall rise Resp: COMMON NORMALS: normal respiratory effort, No retractions, No use of accessory muscles and clear to auscultation bilaterally AUSCULTATION: clear to auscultation bilaterally Cardio: COMMON NORMALS: regular rate and regular rhythm RATE: regular rate RHYTHM: regular rhythm GI: COMMON NORMALS: Normal to inspection, nondistended, normoactive bowel sounds present Extremity: COMMON NORMALS: no pedal edema Neuro: MORGAN COMA SCALE: document GCS findings Morgan coma scale eye opening: Spontaneous [place] coma scale verbal response: Orientated [place] coma scale motor response: Obey commands [place] coma scale total score: 15 SENSORY EXAM: Yes extremities (intact) Psych: COMMON NORMALS: speech normal SPEECH: Yes normal speech Skin: COMMON NORMALS: no rashes or lesions noted GENERAL SKIN EXAM: no rashes or lesions noted Course Vital Signs: Vital signs: Vital Signs Temperature 97.2 F L 01/16/23 23:11 Pulse Rate 86 01/16/23 23:11 Respiratory Rate 19 H 01/16/23 23:11 Blood Pressure 147/99 01/16/23 23:11 Pulse Oximetry 98 01/16/23 23:11 Oxygen Delivery Me thod Room Air 01/16/23 21:06 MDM - URI/Sore Throat Medical Decision Making Symptomatic treatment. If she reaches over a week of symptoms, we'll treat with antibiotics. She states ?the only thing that I can really take is Keflex?. Lab Data Laboratory Results Nasal Influ A H1 2008 PCR Not detected (NOT DETECT) 01/17/23 00:34 Adenovirus (PCR) Not detected (NOT DETECT) 01/17/23 00:34 C. pneumoniae DNA (PCR) Not detected (NOT DETECT) 01/17/23 00:34 Coronavirus 229E (PCR) Not detected (NOT DETECT) 01/17/23 00:34 Human Metapneumovir PCR Not detected (NOT DETECT) 01/17/23 00:34 Influenza A (H1) PCR Not detected (NOT DETECT) 01/17/23 00:34 Influenza A (H3) PCR Not detected (NOT DETECT) 01/17/23 00:34 Influenza Type A (PCR) Not detected (NOT DETECT) 01/17/23 00:34 Influenza Type B (PCR) Not detected (NOT DETECT) 01/17/23 00:34 M. pneumoniae (PCR) Not detected (NOT DETECT) 01/17/23 00:34 Parainfluenza 1 (PCR) Not detected (NOT DETECT) 01/17/23 00:34 Parainfluenza 2 (PCR) Not detected (NOT DETECT) 01/17/23 00:34 Parainfluenza 3 (PCR) Not detected (NOT DETECT) 01/17/23 00:34 Parainfluenza 4 (PCR) Not detected (NOT DETECT) 01/17/23 00:34 RSV Type A (PCR) Not detected (NOT DETECT) 01/17/23 00:34 RSV Type B (PCR) Not detected (NOT DETECT) 01/17/23 00:34 Entero/Rhino (PCR) Not detected (NOT DETECT) 01/17/23 00:34 SARS-CoV-2 (PCR) Not detected (NOT DETECT) 01/17/23 00:34 Discharge Plan Discharge Patient Disposition: Home Clinical Impression: Sinusitis Condition: Stable Prescriptions: New cephalexin 500 mg capsule 500 mg PO Q12H 7 Days Qty: 14 0RF No Action fatwvjag-xofdpmdjf-WM 3.5-10,000-1 mg/mL-unit/mL-% drops,suspension See Rx Instructions .ROUTE .COMPLEX Qty: 10 0RF Dose Instruction: APPLY 1 APPLICATION TO AFFECTED EAR EVERY 6 HOURS NEEDED. APPLY TO COTTON WICK, REPLACE WICK EVERY 24HRS Rx Instructions: APPLY 1 APPLICATION TO AFFECTED EAR EVERY 6 HOURS NEEDED. APPLY TO COTTON WICK, REPLACE WICK EVERY 24HRS fluticasone propionate 50 mcg/actuation spray,suspension See Rx Instructions .ROUTE .COMPLEX Qty: 16 1RF Dose Instruction: USE 2 SPRAYS IN EACH NOSTRIL TWICE DAILY NEEDED FOR CONGESTION Rx Instructions: USE 2 SPRAYS IN EACH NOSTRIL TWICE DAILY NEEDED FOR CONGESTION miscellaneous medical supply Misc 1 ea miscellaneous DAILY Qty: 1 0RF Rx Instructions: Please evaluate and issue Custom AFO for Left foot. albuterol sulfate 90 mcg/actuation HFA aerosol inhaler See Rx Instructions .ROUTE .COMPLEX Qty: 8.5 2RF Dose Instruction: INHALE 2 PUFFS BY MOUTH EVERY 6 HOURS NEEDED FOR SHORTNESS OF BREATH OR WHEEZING Rx Instructions: INHALE 2 PUFFS BY MOUTH EVERY 6 HOURS NEEDED FOR SHORTNESS OF BREATH OR WHEEZING mupirocin 2 % ointment See Rx Instructions .ROUTE .COMPLEX Qty: 22 1RF Dose Instruction: APPLY TO AFFECTED AREA TWICE A DAY Rx Instructions: APPLY TO AFFECTED AREA TWICE A DAY (DME) FreeStyle Lite Strips Strip See Rx Instructions .Route Qty: 100 5RF Rx Instructions: As directed (DME) Diabetes testing supplies See Rx Instructions .Route .MEDSUPPLY Qty: 1 11RF Rx Instructions: Please issue glucose testing strips, lancets, control solution, alcohol prep pads, etc to test sugars two times a day. Cortisporin-TC 3.3-3-10-0.5 mg/mL drops,suspension 1 applic EAR-BOTH Q6H PRN (Reason: UNKNOWN) Qty: 10 0RF Rx Instructions: apply to (cotton) wick; replace wick every 24 hours ipratropium-albuterol 0.5 mg-3 mg(2.5 mg base)/3 mL solution for nebulization 3 ml inhalation QID PRN (Reason: shortness of breath or wheezing) Qty: 90 1RF Discharge Orders: Discharge ED (Routine); Ordered 01/17/23 Ordered By: Cl Wick Referrals: Loco Melendez, [Primary Care Provider] - 1-3 days Patient Instructions: Sinusitis (ED) Activity Restrictions/Additional Instructions: Fill antibiotics and take them in 2 days if no improvement. Other medications we discussed. Coding Level of Care Code ED Cinder Crusher Operator for Priscila Olmstead
== END 2023-01-17 00:39 | disposition home or self-care (01) ==
PROVIDERS: Emergency Provider Emergency Medicine; PCP Family Medicine
DX: J32.9 Chronic sinusitis, unspecified (principal); Z20.822 Contact with and (suspected) exposure to COVID-19
CPT/HCPCS: 87486; 87581; 87633; 96372; 99284; J2550; J8540

== ENCOUNTER → 2023-01-27 08:50 | Outpatient (BNVA) | payer MEDICARE, OTHER, SELFPAY | PROVIDERS: PCP Family Medicine; Visit Provider Family Medicine | DX: E11.9 Type 2 diabetes mellitus without complications (principal); E78.2 Mixed hyperlipidemia; R10.9 Unspecified abdominal pain; Z88.9 Allergy status to unspecified drugs, medicaments and biological substances | CPT/HCPCS: 80053; 80061; 83036; 85025 ==

== ENCOUNTER → 2023-03-01 14:06 | Outpatient (BNVA) | payer MEDICARE, OTHER, SELFPAY | PROVIDERS: PCP Family Medicine; Visit Provider Family Medicine | DX: R10.9 Unspecified abdominal pain (principal); Z88.9 Allergy status to unspecified drugs, medicaments and biological substances | CPT/HCPCS: 82784; 83516 ==

== ENCOUNTER 2023-05-16 13:04 | Emergency (ER) | payer MEDICARE, OTHER, SELFPAY ==
[2023-05-16 13:20] VITALS: BP 140/77; PULSE 102; RESP 18; TEMP 36.7; O2SAT 96; BMI 43.7
[2023-05-16 15:18] VITALS: BP 152/100; PULSE 105; RESP 19; O2SAT 95
--- NOTE | 2023-05-16 15:25 | ED_ITS ---
HPI - Ear Problem General: Chief complaint: Ear Stated complaint: sob and really couldnt understand her Time Seen by Provider: 05/16/23 15:01 Source: patient Mode of arrival: ambulatory History of Present Illness: 43-year-old female presents emergency room complaining of bilateral ear pain particular left ear for the last 5 days. Having some cough and congestion as well she does get some relief with nebulizers and albuterol that she uses at home. Low-grade fever states she has a chronic problem with eustachian tube dysfunction she sees ENT in the past has not been seeing anyone at all recently. No drainage from the ears no fever sweats chills cough nonproductive MD Complaint: ear pain Location: left ear Duration: constant Severity: moderate Exacerbating factors: nothing Discharge from ear: no Associated symptoms: Reports ear or mastoid pain and rhinorrhea; Denies external ear pain, fever(s), headache(s), hearing loss, neck pain, tinnitus or other Treatment prior to arrival: none Review of Systems Const: Denies: fever(s) ENMT: Reports: ear or mastoid pain; Denies: tinnitus Card: Denies: chest pain Resp: Denies: dyspnea GI: Denies: abdominal pain : Denies: dysuria, urinary frequency or urinary urgency Musc: Denies: neck pain Skin/Breast: Denies: rash Neuro: Denies: headache(s) PFS ED PFSH: Medical History Left ureteral calculus Migraines No pertinent past medical history Surgical History S/P appendectomy Family History Mother , at age 65 Aortic aneurysm Social History Smoking and tobacco/nicotine status: never used tobacco/nicotine Alcohol intake: never Marital status: Current occupational status: disabled Female Reproductive History: Spontaneous abortions: No Physical Exam Const: GENERAL APPEARANCE: cooperative and comfortable ORIENTATION/CONSCIOUSNESS: Yes awake, Yes oriented to person, Yes oriented to place and Yes oriented to time HENMT: COMMON NORMALS: normocephalic, atraumatic, hearing grossly normal bilaterally, external ears normal, EAC's normal, TM's normal bilaterally and Normal nasal mucous membranes and turbinates present HEAD & SCALP: normocephalic and atraumatic NOSE: Normal nasal mucous membranes and turbinates present EXTERNAL EAR: Yes external ears normal EXTERNAL AUDITORY CANAL: EAC's normal TYMPANIC MEMBRANE: TM's normal bilaterally Eye: COMMON NORMALS: Equal, round and reactive pupils present, EOMs intact bilaterally, conjunctivae normal and no scleral icterus CONJUNCTIVA: Yes conjunctivae normal PUPIL: Yes Equal, round and reactive pupils present Neck/C-Spine: COMMON NORMALS: full ROM, no lymphadenopathy, supple and no JVD Lymph: LYMPHATIC: no lymphadenopathy noted and no lymphedema noted Resp: COMMON NORMALS: normal respiratory effort, No retractions, No use of accessory muscles and clear to auscultation bilaterally AUSCULTATION: clear to auscultation bilaterally Cardio: COMMON NORMALS: no JVD, regular rate, regular rhythm and No murmurs present (Cardio) RATE: regular rate RHYTHM: regular rhythm GI: COMMON NORMALS: Soft to palpation and No hepatosplenomegaly present AUSCULTATION: Yes normoactive bowel sounds PALPATION: Yes Soft to palpation, No Tenderness to palpation present (GI), No Guarding due to palpation present (GI) and Yes No hepatosplenomegaly present Extremity: COMMON NORMALS: normal to inspection, capillary refill normal, no clubbing, cyanosis or edema, no calf tenderness and no pedal edema Neuro: SENSORIUM/ORIENTATION: Yes oriented to person, Yes oriented to place and Yes oriented to time Skin: COMMON NORMALS: no rashes or lesions noted GENERAL SKIN EXAM: no rashes or lesions noted Course Vital Signs: Vital signs: Vital Signs Temperature 98.1 F 05/16/23 13:20 Pulse Rate 105 H 05/16/23 15:18 Respiratory Rate 19 H 05/16/23 15:18 Blood Pressure 152/100 05/16/23 15:18 Pulse Oximetry 95 05/16/23 15:18 Oxygen Delivery Me thod Room Air 05/16/23 15:18 MDM - Ear Medical Decision Making No signs of infection on exam TMs bilaterally have some sclerosis but no fluid levels no perforation no erythema or redness. Changes appear to be chronic consistent with her reported history. Her lungs were clear would recommend starting her on steroid taper and have her continue her other antihistamines nasal steroid spray. Follow-up with ENT will have case management make an appointment follow-up with Dr. Sims. Medical Records I reviewed the patient's medical records. Lab Data I reviewed the patient's lab results. No radiology studies performed this visit Discharge Plan Discharge Patient Disposition: Home Clinical Impression: ETD (eustachian tube dysfunction) Condition: Stable Prescriptions: New Medrol (Philip) 4 mg tablets,dose pack See Rx Instructions .ROUTE .COMPLEX Qty: 21 0RF Rx Instructions: orally per package directions albuterol sulfate 90 mcg/actuation HFA aerosol inhaler 2 inh INHALATION Q4H PRN (Reason: shortness of breath or wheezing) Qty: 18 0RF ipratropium-albuterol 0.5 mg-3 mg(2.5 mg base)/3 mL solution for nebulization 3 ml inhalation Q4H PRN (Reason: shortness of breath or wheezing) Qty: 90 0RF (DME) Space Chamber Spacer See Rx Instructions .ROUTE Qty: 1 0RF Rx Instructions: As directed No Action fluticasone propionate 50 mcg/actuation spray,suspension See Rx Instructions .ROUTE .COMPLEX Qty: 16 1RF Dose Instruction: USE 2 SPRAYS IN EACH NOSTRIL TWICE DAILY NEEDED FOR CONGESTION Rx Instructions: USE 2 SPRAYS IN EACH NOSTRIL TWICE DAILY NEEDED FOR CONGESTION miscellaneous medical supply Misc 1 ea miscellaneous DAILY Qty: 1 0RF Rx Instructions: Please evaluate and issue Custom AFO for Left foot. (DME) FreeStyle Precision [employer] Strips Strip See Rx Instructions .Route Qty: 100 11RF Rx Instructions: Check Blood sugars 3x a day. ysemtxjb-plnfewbte-EA 3.5-10,000-1 mg/mL-unit/mL-% drops,suspension See Rx Instructions .ROUTE .COMPLEX Qty: 10 0RF Dose Instruction: APPLY 1 APPLICATION TO AFFECTED EAR EVERY 6 HOURS NEEDED. APPLY TO COTTON WICK, REPLACE WICK EVERY 24HRS Rx Instructions: APPLY 1 APPLICATION TO AFFECTED EAR EVERY 6 HOURS NEEDED. APPLY TO COTTON WICK, REPLACE WICK EVERY 24HRS albuterol sulfate 90 mcg/actuation HFA aerosol inhaler See Rx Instructions .ROUTE .COMPLEX Qty: 8.5 2RF Dose Instruction: INHALE 2 PUFFS BY MOUTH EVERY 6 HOURS NEEDED FOR SHORTNESS OF BREATH OR WHEEZING Rx Instructions: INHALE 2 PUFFS BY MOUTH EVERY 6 HOURS NEEDED FOR SHORTNESS OF BREATH OR WHEEZING mupirocin 2 % ointment See Rx Instructions .ROUTE .COMPLEX Qty: 22 1RF Dose Instruction: APPLY TO AFFECTED AREA TWICE A DAY Rx Instructions: APPLY TO AFFECTED AREA TWICE A DAY (DME) FreeStyle Lite Strips Strip See Rx Instructions .Route Qty: 100 5RF Rx Instructions: As directed (DME) Diabetes testing supplies See Rx Instructions .Route .MEDSUPPLY Qty: 1 11RF Rx Instructions: Please issue glucose testing strips, lancets, control solution, alcohol prep pads, etc to test sugars two times a day. Cortisporin-TC 3.3-3-10-0.5 mg/mL drops,suspension 1 applic EAR-BOTH Q6H PRN (Reason: UNKNOWN) Qty: 10 0RF Rx Instructions: apply to (cotton) wick; replace wick every 24 hours ipratropium-albuterol 0.5 mg-3 mg(2.5 mg base)/3 mL solution for nebulization 3 ml inhalation QID PRN (Reason: shortness of breath or wheezing) Qty: 90 1RF Discharge Orders: Discharge ED (Routine); Ordered 05/16/23 Ordered By: Sandeep Harrington Discharge Diet: Usual diet Discharge Activity: Increase activity as tolerated Patient Instructions: Opioid Safety, Pain Management Activity Restrictions/Additional Instructions: You were seen today for complaints of ear discomfort and some cough and congestion. On exam your ears show no signs of infection and your lungs sounded clear. He may have some mild allergies and likely has some continued eustachian tube dysfunction causing ear discomfort. Recommend he continue using albuterol as needed and start a Medrol Dosepak he were given 10 mg of IM dexamethasone in the emergency room, start the oral prednisone tomorrow. Case management make arrangements for you to follow-up with Dr. Sims and ear nose and throat clinic. Coding Level of Care Code ED Hospital Clinic Assistant for Priscila Olmstead
--- NOTE | 2023-05-17 12:20 | DCPLANNER ---
Sent referral to ENT on 05/17/23 at 12:21. ENT to contact patient
== END 2023-05-16 15:51 | disposition home or self-care (01) ==
PROVIDERS: Emergency Provider Family Medicine
DX: H69.83 Other specified disorders of Eustachian tube, bilateral (principal)
CPT/HCPCS: 99284

== ENCOUNTER → 2023-06-03 13:37 | Outpatient (BNVA) | payer MEDICARE, OTHER, SELFPAY | PROVIDERS: Visit Provider Family Medicine | DX: E11.9 Type 2 diabetes mellitus without complications (principal) | CPT/HCPCS: 80053; 80061; 82043; 83036 ==

== ENCOUNTER 2023-06-28 22:09 | Emergency (ER) | payer MEDICARE, OTHER, SELFPAY ==
[2023-06-28 22:31] VITALS: BP 163/107; PULSE 110; RESP 17; TEMP 36.8; O2SAT 99; BMI 43.7
[2023-06-28 22:34] VITALS: BP 157/98; O2SAT 100
[2023-06-28] MEDS: promethazine 25 mg/mL SDV 1 mL IM (23:17)
[2023-06-28 23:25] VITALS: BP 157/98; PULSE 110; RESP 17; TEMP 36.8; O2SAT 100
--- NOTE | 2023-06-29 00:26 | W.ED.HA ---
HPI - Headache General: Chief Complaint: Headache Stated Complaint: migraine and both ears hurt Time Seen by Provider: 06/28/23 22:34 Source: patient Mode of arrival: ambulatory Limitations: no limitations History of Present Illness: Patient presents emergency department today for evaluation treatment of chronic recurrent migraine headaches and chronic recurrent bilateral ear pain. Patient's chart review shows significant past medical history of complaints of headache here in the emergency department. She has also been seen and evaluated multiple times for bilateral ear issues and eustachian tube dysfunction. Patient states this is her typical symptoms without any acute changes. Patient has multiple allergies to medications however, her chart indicates she has tolerated Phenergan, Toradol, and Decadron in the past. Patient is requesting only Phenergan today for her pain. She also states she is out of her Flonase and her eardrops. Review of Systems General: Reports: 10 or more systems reviewed and unremarkable except in HPI and below PFSH ED PFSH: Medical History Fatty liver Hepatomegaly Multiple drug allergies History of kidney stones Mixed dyslipidemia Allergic rhinosinusitis Dyshidrotic eczema Cervical stenosis of spinal canal Left foot drop Obesity ETD (eustachian tube dysfunction) Migraines Surgical History History of appendectomy Family History Mother , at age 65 Aortic aneurysm Hypertension Social History Smoking and tobacco/nicotine status: current every day tobacco/nicotine user cigarettes Packs smoked per day: 1 [ Other cigarette details: started at age 13] Quit status (tobacco/nicotine): not considering quitting Alcohol intake: never Substance/Drug Use: never Household members: significant other Marital status: Number of children: 0 Current occupational status: disabled Leisure activites: hunting, fishing and other Leisure activities details: video games Jada/Restoration: Hoahaoism Special jada needs: No Agree to transfusion: Yes Female Reproductive History: Spontaneous abortions: No Physical Exam Const: COMMON NORMALS: no acute distress, patient oriented x3 and alert HENMT: OTHER: Bilateral serous otitis noted without signs of acute infection or eardrum rupture. Eye: COMMON NORMALS: Equal, round and reactive pupils present, EOMs intact bilaterally and conjunctivae normal CONJUNCTIVA: Yes conjunctivae normal PUPIL: Yes Equal, round and reactive pupils present Neck/C-Spine: COMMON NORMALS: no JVD Lymph: LYMPHATIC: no lymphadenopathy noted Resp: COMMON NORMALS: normal respiratory effort, No retractions and No use of accessory muscles Cardio: COMMON NORMALS: no JVD and regular rate RATE: regular rate : COMMON NORMALS: Yes no CVA tenderness BLADDER/KIDNEY EXAM: Yes no CVA tenderness Back/Pelvis: COMMON NORMALS: no CVA tenderness, thoracic and lumbar spine normal to inspection and thoraco-lumbar ROM normal Extremity: COMMON NORMALS: normal to inspection, full ROM and no pedal edema Neuro: COMMON NORMALS: patient oriented x3 SENSORIUM/ORIENTATION: Yes alert Psych: OTHER: Patient appears extremely anxious and somewhat agitated. She speaks very quickly and states she does it when she feels overwhelmed. Skin: COMMON NORMALS: no rashes or lesions noted and turgor normal GENERAL SKIN EXAM: no rashes or lesions noted and turgor normal Course Vital Signs: Vital signs: Vital Signs Temperature 98.2 F 06/28/23 23:25 Pulse Rate 110 H 06/28/23 23:25 Respiratory Rate 17 06/28/23 23:25 Blood Pressure 157/98 06/28/23 23:25 Pulse Oximetry 100 06/28/23 23:25 Oxygen Delivery Me thod Room Air 06/28/23 22:34 MDM - Headache Medical Decision Making Patient presents emergency department today for complaints of her chronic and recurrent headaches as well as ear pain. Patient originally got agitated with nurses upon arrival as they were going to initiate protocol with labs and IV however, patient was refusing IV. Explained to the patient that I did review her chart prior to her arrival and understand that she typically gets Phenergan IM. She is requesting Phenergan again today but no other treatment requests. She is asking for refills on her Flonase and her eardrops. These were provided. Patient states that when she gets her Phenergan she is ready to be discharged. Patient was tolerating oral intake here in the emergency department and showed no signs of any neurological deficit concerning for signs of a meningitis or intracranial injury. Patient to follow-up with her primary care doctor later this week if needed. Differential Diagnosis Likely migraine and headache; Unlikely subarachnoid hemorrhage, meningitis, sinusitis or postconcussion syndrome No radiology studies performed this visit Discharge Plan Discharge Patient Disposition: Home Clinical Impression: Headache, Chronic pain of both ears Condition: Stable Prescriptions: New fijzytdd-mwlamruuy-ZB 3.5-10,000-1 mg/mL-unit/mL-% drops,suspension 4 drp otic (ear) Q8H Qty: 10 0RF Flonase Allergy Relief 50 mcg/actuation spray,suspension 2 spray intranasal DAILY PRN (Reason: nasal congestion) Qty: 16 0RF Rx Instructions: administer into each nostril No Action fluticasone propionate 50 mcg/actuation spray,suspension See Rx Instructions .ROUTE .COMPLEX Qty: 16 1RF Dose Instruction: USE 2 SPRAYS IN EACH NOSTRIL TWICE DAILY NEEDED FOR CONGESTION Rx Instructions: USE 2 SPRAYS IN EACH NOSTRIL TWICE DAILY NEEDED FOR CONGESTION zvanghyn-jntfvuqkk-AW 3.5-10,000-1 mg/mL-unit/mL-% drops,suspension See Rx Instructions .ROUTE .COMPLEX Qty: 10 0RF Dose Instruction: APPLY 1 APPLICATION TO AFFECTED EAR EVERY 6 HOURS NEEDED. APPLY TO COTTON WICK, REPLACE WICK EVERY 24HRS Rx Instructions: APPLY 1 APPLICATION TO AFFECTED EAR EVERY 6 HOURS NEEDED. APPLY TO COTTON WICK, REPLACE WICK EVERY 24HRS mupirocin 2 % ointment See Rx Instructions .ROUTE .COMPLEX Qty: 22 1RF Dose Instruction: APPLY TO AFFECTED AREA TWICE A DAY Rx Instructions: APPLY TO AFFECTED AREA TWICE A DAY albuterol sulfate 90 mcg/actuation HFA aerosol inhaler 2 inh INHALATION Q4H PRN (Reason: shortness of breath or wheezing) Qty: 18 0RF Discharge Orders: Discharge ED (Routine); Ordered 06/28/23 Ordered By: Julee Barreto Referrals: Mine Real MD [Primary Care Provider] - Discharge Diet: Usual diet Discharge Activity: Increase activity as tolerated Coding Level of Care Code ED Physical Therapy Nurse for Priscila Olmstead
== END 2023-06-28 23:30 | disposition home or self-care (01) ==
PROVIDERS: Emergency Provider Physician Assistant; PCP Family Medicine
DX: R51.9 Headache, unspecified (principal); G89.29 Other chronic pain; H92.03 Otalgia, bilateral; F17.210 Nicotine dependence, cigarettes, uncomplicated; E78.2 Mixed hyperlipidemia
CPT/HCPCS: 96372; 99284; J2550

== ENCOUNTER 2023-08-24 13:27 | Outpatient (CLI) | payer MEDICARE, OTHER, SELFPAY ==
--- NOTE | 2023-08-24 14:25 | P.DIET_ITS ---
Reason for Visit: [id number], Obesity Person Interviewed: Patient Medical History, Labs and Background: Denice listed ADHD, PTSD, OCD, severe anxiety, panic disorder w/angoraphobia Height: 5 ft 2 in Weight: 255 lb BMI: 45 kg/m2 IBW: 115 lbs Weight History: Pt not interested in sharing wt history. Concerns and Goals: Denice had no goals - she wanted nothing from me. Sleep Hygiene: When she said she was an insomniac, I asked her to describe what that looks like for her and she said, it means she can't sleep. Physical Activity: As a child she stepped on a rock that went deep into her foot and did damage and she hasn't been able to exercise since then. GI Symptoms: Vomiting Other Feeding Issues: She had a written list of foods she could eat all the time (chicken and beef and onions) and a list of foods she could eat some of the time (vegetables, fruits, and fish). Food Allergies and Sensitivities: Denice endorsed being lactose intolerant, even though she had chicken anna the night before. 24 Hour Recall: Breakfast Time: Snack Time: Lunch Time: Snack Time: Dinner Time: Snack Time: Eating Out: At this point in the interview, Denice said I had asked too many questions and she was getting anxious. Soda vs Milk vs Water: Denice likes sodas and when I asked her how many per week or day she said she couldn't answer that, but she could tell me she hates water. Additional Comments: After getting her wheel chair in the office, she told me to leave the door open otherwise she gets anxious. When asked how I could best help her, she said she didn't know. When asked her goals or expectations of me, she said I don't know. Probably 15-20 minutes into our time together, she told me I asked too many questions and she felt stressed. I asked if I could print off some materials for her so she could take them home and look them over at her leisure and she agreed. Recommendations: Assessment: Denice was anxious the majority of her time with me and wanted nothing from me. She told me she manages her blood sugar with soda and she eats what doesn't cause her to vomit and even though her doctor recommended limits for her blood sugar, she said she knows what her body needs and how to treat it and feed it. Probably for 3-5 minutes she told me about her ADHD and that noone believed she had it, but she knows she was diagnosed at age 6. Nutrition Diagnosis: Excessive energy intake r/t habits and patterns AEB Pt adamantly stating she knows what is best for her stomach and blood sugar. Intervention: Because she was becoming anxious, I printed off material: My plate - Diabetic and 5 days worth of meal plans for 1500 kcals and 1800 kcals. When a sked if she could make substitutions for foods that upset her stomach I agreed and then took her back to the front of the MOB. Her boyfriend Luis, who is also diabetic, picked her up. Monitoring/Evaluation: In order to be helpful I needed to ask questions, but as I did Denice became more and more stressed. In the end I decided giving her material and allowing her to leave was the best plan. On the material is my office number and extension as well as my email in case she has questions. Coding Level of Care Code Nutrition/Individ/Init 30 Min Time Spent (min) 30
== END 2023-08-24 13:28 | disposition home or self-care (01) ==
LOC: DIET 13:28
PROVIDERS: PCP Family Medicine; Visit Provider Family Medicine
DX: Z71.3 Dietary counseling and surveillance (principal); E66.01 Morbid (severe) obesity due to excess calories; Z68.41 Body mass index [BMI] 40.0-44.9, adult
CPT/HCPCS: 97802

== ENCOUNTER → 2023-09-06 16:10 | Outpatient (BNVA) | payer MEDICARE, OTHER, SELFPAY | PROVIDERS: PCP Family Medicine; Visit Provider Family Medicine | DX: N91.2 Amenorrhea, unspecified (principal); E11.9 Type 2 diabetes mellitus without complications | CPT/HCPCS: 80053; 80061; 82670; 83001; 83002; 83036 ==

== ENCOUNTER → 2023-12-08 15:42 | Outpatient (BNVA) | payer MEDICARE, OTHER, SELFPAY | PROVIDERS: PCP Family Medicine; Visit Provider Clinical Nurse Specialist Adult Health | DX: R30.0 Dysuria (principal) | CPT/HCPCS: 87086 ==

== ENCOUNTER → 2024-03-14 14:19 | Outpatient (BNVA) | payer MEDICARE, OTHER, SELFPAY | PROVIDERS: PCP Family Medicine; Visit Provider Family Medicine | DX: E11.9 Type 2 diabetes mellitus without complications (principal) | CPT/HCPCS: 80048; 80061; 83036; 87070; 87075; 87205 ==

== ENCOUNTER 2024-03-21 14:52 | Outpatient (CLI) | payer MEDICARE, OTHER, SELFPAY ==
--- NOTE | 2024-03-21 14:56 | XR_ITS ---
WS: [id number] Exam: XR hand RT min 3V* [id number] Date/Time of Exam: 03/21/2024 2:57 PM Reason For Exam: rt long finger pain triggering Comparison 12/16/2020. No acute fracture or dislocation. The joints are preserved. No soft tissue foreign bodies are identif ied. XR/XR hand RT min 3V* [id number] IMPRESSION: 1. Negative RIGHT hand.
== END 2024-03-21 14:53 | disposition home or self-care (01) ==
LOC: RAD 14:56
PROVIDERS: PCP Family Medicine; Visit Provider Family Medicine
DX: M79.644 Pain in right finger(s) (principal)
CPT/HCPCS: 73130

== ENCOUNTER 2024-04-19 17:45 | Emergency (ER) | payer MEDICARE, OTHER, SELFPAY ==
[2024-04-19 18:03] VITALS: BP 152/87; PULSE 99; RESP 16; TEMP 36.7; O2SAT 99; BMI 43.4
[2024-04-19 18:52] VITALS: BP 142/99; PULSE 102; O2SAT 99
[2024-04-19] MEDS: neomycin-poly-hydrocort Otic Susp 10 mL Btl 4 DROP EAR-BOTH (19:23)
[2024-04-19] MEDS: promethazine 25 mg/mL SDV 1 mL IM (19:26)
[2024-04-19 19:30] VITALS: BP 151/96; PULSE 93; O2SAT 97
--- NOTE | 2024-04-19 23:00 | W.ED.EAR ---
HPI - Ear Problem General: Chief complaint: Ear Stated complaint: Migraine and ear infection Time Seen by Provider: 04/19/24 17:49 Source: patient Mode of arrival: ambulatory Limitations: no limitations History of Present Illness: Patient is a 44-year-old female presents the emergency department complaining of chronic bilateral ear pain as well as a migraine. States that she struggles with both of these issues, and has been seen multiple times in the emergency department. She is reporting that she is unable to take any medications by mouth due to anaphylaxis, she does not elaborate any further on this. States she is normally given eardrops as well as a shot of Phenergan, which help her symptoms. At this time this is all she is requesting, she has no new complaints to report. States she is dealt with ear infections since a child, uses Flonase daily. MD Complaint: ear pain Location: bilateral Duration: constant Discharge from ear: no Associated symptoms: Reports ear or mastoid pain and headache(s); Denies fever(s) or neck pain Treatment prior to arrival: none Related Data Previous Rx's Medication Instructions Recorded blood sugar diagnostic (OneTouch #100 ea 08/10/23 Ultra Test strips) blood-glucose meter,continuous #1 ea 11/30/23 (Dexcom G6 Day Care Supervisor) blood-glucose sensor (Dexcom G7 #1 ea 11/30/23 Sensor device) blood sugar diagnostic (Blood #200 ea 02/16/24 Glucose Test strips) flash glucose sensor (FreeStyle #1 ea 02/23/24 Fallon 2 Sensor kit) fluticasone propionate 50 See Rx Instructions .Route 02/24/24 mcg/actuation nasal .COMPLEX #16 mL spray,suspension mupirocin 2 % topical ointment 1 applic topical TID #22 grams 03/14/24 albuterol sulfate 90 mcg/actuation 2 inh inhalation Q4H PRN shortness 04/10/24 aerosol inhaler of breath or wheezing #18 grams [id number]-ekvgemkey-gnvomeden 3.5 4 drp otic (ear) Q8H #10 mL 04/19/24 mg-10,000 unit/mL-1 % ear drops,susp Allergies Allergy/AdvReac Type Severity Reaction Status Date / Time Latex, Natural Rubber Allergy Mild HIVES Verified 04/06/24 12:49 acetaminophen [From Tylenol] Allergy ALGY-Anaphy Verified 04/06/24 12:49 laxis amoxicillin Allergy ALGY-Rash Verified 04/06/24 12:49 Antihistamines - Alkylamine Allergy Unknown Verified 04/06/24 12:49 aspirin Allergy ALGY-Rash Verified 04/06/24 12:49 Cephalosporins Allergy Unknown Verified 04/06/24 12:49 clindamycin Allergy Unknown Verified 04/06/24 12:49 COVID-19 vaccine, mRNA, Allergy Unknown Verified 04/06/24 12:49 [id number], L diphenhydramine Allergy ALGY-Anaphy Verified 04/06/24 12:49 [From Benadryl] laxis doxycycline Allergy ALGY-Rash Verified 04/06/24 12:49 hydroxychloroquine Allergy Unknown Verified 04/06/24 12:49 Iodinated Contrast Media Allergy Unknown Verified 04/06/24 12:49 lactose Allergy ALGY-Rash Verified 04/06/24 12:49 Penicillins Allergy ALGY-Difficulty Verified 04/06/24 12:49 Breathing pneumococcal vaccine Allergy Unknown Verified 04/06/24 12:49 salicylates Allergy unknown Verified 04/06/24 12:49 Sulfa (Sulfonamide Allergy rash Verified 04/06/24 12:49 Antibiotics) Tetracyclines Allergy vomit.rash Verified 04/06/24 12:49 ANACIN FAMILY Allergy Unknown Uncoded 04/06/24 12:49 blue dyes Allergy Unknown Uncoded 04/06/24 12:49 DERMATOLOGICALS Allergy Unknown Uncoded 04/06/24 12:49 flu vaccine Allergy Unknown Uncoded 04/06/24 12:49 FLUOROQUINOLONES Allergy Unknown Uncoded 04/06/24 12:49 ketolides? Allergy Unknown Uncoded 04/06/24 12:49 macrolides Allergy Unknown Uncoded 04/06/24 12:49 OPIOIDS Allergy Unknown Uncoded 04/06/24 12:49 SSRIs Allergy Unknown Uncoded 04/06/24 12:49 triamcinolone Allergy ALGY-Rash Uncoded 04/06/24 12:49 Review of Systems General: Reports: 10 or more systems reviewed and unremarkable except in HPI and below Const: Denies: fever(s), chills or fatigue Eyes: Denies: change in vision ENMT: Reports: ear or mastoid pain; Denies: throat pain or nasal discharge Card: Denies: chest pain, palpitations, swelling of feet/ankles or lightheadedness Resp: Denies: dyspnea, productive cough or wheezing GI: Denies: abdominal pain, nausea, vomiting, diarrhea or constipation : Denies: flank pain, difficulty voiding, dysuria or urinary frequency Musc: Denies: neck pain, back pain or joint pain Skin/Breast: Denies: rash Neuro: Reports: headache(s); Denies: numbness in extremities or weakness in extremities PFSH ED PFSH: Medical History Psychiatric care Fatty liver Hepatomegaly Multiple drug allergies History of kidney stones Mixed dyslipidemia Allergic rhinosinusitis Dyshidrotic eczema Cervical stenosis of spinal canal Left foot drop Obesity ETD (eustachian tube dysfunction) Migraines Surgical History History of appendectomy Family History Mother , at age 65 Aortic aneurysm Hypertension Social History Smoking and tobacco/nicotine status: current every day tobacco/nicotine user cigarettes Packs smoked per day: 1 [ Other cigarette details: started at age 13] Quit status (tobacco/nicotine): not considering quitting Alcohol intake: never Substance/Drug Use: never Household members: significant other Marital status: Number of children: 0 Current occupational status: disabled Leisure activites: hunting, fishing and other Leisure activities details: video games Jada/Zoroastrian: Bahai Special jada needs: No Agree to transfusion: Yes Female Reproductive History: Spontaneous abortions: No Physical Exam Const: COMMON NORMALS: no acute distress, patient oriented x3 and no limitations GENERAL APPEARANCE: cooperative, comfortable and well developed ORIENTATION/CONSCIOUSNESS: Yes awake, Yes oriented to person, Yes oriented to place and Yes oriented to time HENMT: COMMON NORMALS: normocephalic, atraumatic, hearing grossly normal bilaterally, external ears normal, EAC's normal and TM's normal bilaterally HEAD & SCALP: normocephalic and atraumatic EXTERNAL EAR: Yes external ears normal EXTERNAL AUDITORY CANAL: EAC's normal TYMPANIC MEMBRANE: TM's normal bilaterally Eye: COMMON NORMALS: Equal, round and reactive pupils present, EOMs intact bilaterally and conjunctivae normal CONJUNCTIVA: Yes conjunctivae normal PUPIL: Yes Equal, round and reactive pupils present Neck/C-Spine: COMMON NORMALS: full ROM, supple and no JVD Resp: COMMON NORMALS: normal respiratory effort, No retractions, No use of accessory muscles and clear to auscultation bilaterally AUSCULTATION: clear to auscultation bilaterally Cardio: COMMON NORMALS: no JVD, regular rate, regular rhythm, No clicks present (Cardio), No murmurs present (Cardio) and No rub (Cardio) RATE: regular rate RHYTHM: regular rhythm Extremity: COMMON NORMALS: normal to inspection, full ROM and capillary refill normal Neuro: COMMON NORMALS: patient oriented x3, CN's II-XII intact bilaterally, moves all extremities, no focal motor deficits and no sensory deficits noted SENSORIUM/ORIENTATION: Yes oriented to person, Yes oriented to place and Yes oriented to time Psych: COMMON NORMALS: mental status grossly normal and Normal thought process present THOUGHT PROCESS: Normal thought process present Skin: COMMON NORMALS: no rashes or lesions noted GENERAL SKIN EXAM: no rashes or lesions noted Course Vital Signs: Vital signs: Vital Signs Temperature 98.0 F 04/19/24 18:03 Pulse Rate 93 04/19/24 19:30 Respiratory Rate 16 04/19/24 18:03 Blood Pressure 151/96 04/19/24 19:30 Pulse Oximetry 97 04/19/24 19:30 Oxygen Delivery Me thod Room Air 04/19/24 18:52 MDM - Ear Medical Decision Making Patient arrives with complaints of a migraine and bilateral ear pain, states she has been seen multiple times for her ear pain and has dealt with infections since she was little. States that she normally is given antibiotic drops that helped, and states she is unable to take any medications by mouth. She says that for her headaches she is given a shot of Phenergan which takes it away. At this time this is all she is requesting, no new concerning symptoms reported. No radiology studies performed this visit Discharge Plan Discharge Patient Disposition: Home Clinical Impression: Chronic ear pain, Migraines Condition: Stable Prescriptions: New tdntntbs-jholhddwc-SB 3.5-10,000-1 mg/mL-unit/mL-% drops,suspension 4 drp otic (ear) Q8H Qty: 10 0RF No Action mupirocin 2 % ointment 1 applic topical TID Qty: 22 0RF promethazine [Phenergan] 25 mg/mL solution 25 mg IM ONCE Qty: 1 0RF (DME) FreeStyle Fallon 2 Sensor Kit See Rx Instructions .Route Qty: 1 0RF Rx Instructions: As directed (DME) OneTouch Ultra Test Strip See Rx Instructions .Route Qty: 100 0RF Rx Instructions: As directed (DME) Dexcom G7 Sensor Device See Rx Instructions .Route Qty: 1 0RF Rx Instructions: As directed (DME) Dexcom G6 Day Care Supervisor Misc See Rx Instructions .Route Qty: 1 0RF Rx Instructions: As directed (DME) Blood Glucose Test Strip See Rx Instructions .MEDSUPPLY Qty: 200 12RF Rx Instructions: Freestyle precision Gucci blood glucose test strips Please check three times a day fluticasone propionate 50 mcg/actuation spray,suspension See Rx Instructions .ROUTE .COMPLEX Qty: 16 1RF Dose Instruction: USE 2 SPRAYS IN EACH NOSTRIL TWICE DAILY NEEDED FOR CONGESTION Rx Instructions: USE 2 SPRAYS IN EACH NOSTRIL TWICE DAILY NEEDED FOR CONGESTION albuterol sulfate 90 mcg/actuation HFA aerosol inhaler 2 inh INHALATION Q4H PRN (Reason: shortness of breath or wheezing) Qty: 18 0RF Discharge Orders: Discharge ED (Routine); Ordered 04/19/24 Ordered By: Ildefonso Pak Referrals: Mine Real MD [Primary Care Provider] - Discharge Diet: Usual diet Discharge Activity: Increase activity as tolerated Patient Instructions: Pain Management Activity Restrictions/Additional Instructions: Eardrops as prescribed. Drink plenty of fluids. Follow-up with your primary care provider and return with any new or worsening. Coding Level of Care Code ED Fur Machine Operator for Priscila Olmstead
== END 2024-04-19 19:32 | disposition home or self-care (01) ==
PROVIDERS: Emergency Provider Physician Assistant; PCP Family Medicine
DX: G89.29 Other chronic pain (principal); H92.03 Otalgia, bilateral; G43.909 Migraine, unspecified, not intractable, without status migrainosus; F17.210 Nicotine dependence, cigarettes, uncomplicated; E78.2 Mixed hyperlipidemia
CPT/HCPCS: 96372; 99284; J2550

== ENCOUNTER → 2024-05-19 12:58 | Outpatient (BNVA) | payer OTHER, SELFPAY | PROVIDERS: PCP Family Medicine; Visit Provider Family Medicine | DX: R53.83 Other fatigue (principal) | CPT/HCPCS: 80048; 82306; 82607; 83036 ==

== ENCOUNTER 2024-05-23 13:31 | Emergency (ER) | payer OTHER, SELFPAY ==
--- NOTE | 2024-05-23 13:33 | XRR_ITS ---
PROCEDURE INFORMATION: Exam: XR Left Foot Exam date and time: 05/23/2024 1:51 PM Age: 44 years old Clinical indication: Injury or trauma; Other: Not specified; Blunt trauma; Foot; Left TECHNIQUE: Imaging protocol: Radiologic exam of the left foot. Views: 3 or more views. COMPARISON: CR XR foot LT min 3V* [id number] 04/08/2019 7:35 PM FINDINGS: Bones/joints: No acute fracture or dislocation. Mineralization is normal. Joints are maintained. Soft tissues: Unremarkable. XR/XR foot LT min 3V* [id number] IMPRESSION: No acute findings.
[2024-05-23 13:37] VITALS: BP 124/80; PULSE 85; RESP 16; TEMP 36.7; O2SAT 99
--- NOTE | 2024-05-23 14:11 | ED_ITS ---
HPI - Extremity Problem General: Chief complaint: Extremity Injury, Lower Stated complaint: left pinky toe injury Time Seen by Provider: 05/23/24 14:04 Source: patient Mode of arrival: ambulatory Limitations: no limitations History of Present Illness: 44-year-old female states she had jammed her left pinky toe on furniture at home 2 days ago states been having pain in that pinky toe since then she rates her pain a 6 out of 10 currently she denies any other injuries she has been able to ambulate states it is worse with ambulation improved with rest Associated symptoms: Deny chest pain, fever(s) or rash Related Data Previous Rx's Medication Instructions Recorded blood sugar diagnostic (OneTouch #100 ea 08/10/23 Ultra Test strips) blood-glucose meter,continuous #1 ea 11/30/23 (Dexcom G6 Box Sealing Inspector) blood-glucose sensor (Dexcom G7 #1 ea 11/30/23 Sensor device) blood sugar diagnostic (Blood #200 ea 02/16/24 Glucose Test strips) flash glucose sensor (FreeStyle #1 ea 02/23/24 Fallon 2 Sensor kit) fluticasone propionate 50 See Rx Instructions .Route 02/24/24 mcg/actuation nasal .COMPLEX #16 mL spray,suspension albuterol sulfate 90 mcg/actuation 2 inh inhalation Q4H PRN shortness 04/10/24 aerosol inhaler of breath or wheezing #18 grams Allergies Allergy/AdvReac Type Severity Reaction Status Date / Time Latex, Natural Rubber Allergy Mild HIVES Verified 05/19/24 12:34 acetaminophen [From Tylenol] Allergy ALGY-Anaphy Verified 05/19/24 12:34 laxis amoxicillin Allergy ALGY-Rash Verified 05/19/24 12:34 Antihistamines - Alkylamine Allergy Unknown Verified 05/19/24 12:34 aspirin Allergy ALGY-Rash Verified 05/19/24 12:34 Cephalosporins Allergy Unknown Verified 05/19/24 12:34 clindamycin Allergy Unknown Verified 05/19/24 12:34 COVID-19 vaccine, mRNA, Allergy Unknown Verified 05/19/24 12:34 [id number], L diphenhydramine Allergy ALGY-Anaphy Verified 05/19/24 12:34 [From Benadryl] laxis doxycycline Allergy ALGY-Rash Verified 05/19/24 12:34 hydroxychloroquine Allergy Unknown Verified 05/19/24 12:34 Iodinated Contrast Media Allergy Unknown Verified 05/19/24 12:34 lactose Allergy ALGY-Rash Verified 05/19/24 12:34 Penicillins Allergy ALGY-Difficulty Verified 05/19/24 12:34 Breathing pneumococcal vaccine Allergy Unknown Verified 05/19/24 12:34 salicylates Allergy unknown Verified 05/19/24 12:34 Sulfa (Sulfonamide Allergy rash Verified 05/19/24 12:34 Antibiotics) Tetracyclines Allergy vomit.rash Verified 05/19/24 12:34 ANACIN FAMILY Allergy Unknown Uncoded 05/19/24 12:34 blue dyes Allergy Unknown Uncoded 05/19/24 12:34 DERMATOLOGICALS Allergy Unknown Uncoded 05/19/24 12:34 flu vaccine Allergy Unknown Uncoded 05/19/24 12:34 FLUOROQUINOLONES Allergy Unknown Uncoded 05/19/24 12:34 ketolides? Allergy Unknown Uncoded 05/19/24 12:34 macrolides Allergy Unknown Uncoded 05/19/24 12:34 OPIOIDS Allergy Unknown Uncoded 05/19/24 12:34 SSRIs Allergy Unknown Uncoded 05/19/24 12:34 triamcinolone Allergy ALGY-Rash Uncoded 05/19/24 12:34 Review of Systems Const: Denies: fever(s), chills, body aches or change in appetite ENMT: Denies: throat pain or dental pain Card: Denies: chest pain Resp: Denies: dyspnea GI: Denies: abdominal pain, nausea, vomiting or diarrhea Musc: Reports: extremity pain; Denies: neck pain or back pain Skin/Breast: Denies: rash Neuro: Denies: headache(s) PFSH ED PFSH: Medical History Psychiatric care Fatty liver Hepatomegaly Multiple drug allergies History of kidney stones Mixed dyslipidemia Allergic rhinosinusitis Dyshidrotic eczema Cervical stenosis of spinal canal Left foot drop Obesity ETD (eustachian tube dysfunction) Migraines Surgical History History of appendectomy Family History Mother , at age 65 Aortic aneurysm Hypertension Social History Smoking and tobacco/nicotine status: current every day tobacco/nicotine user cigarettes Packs smoked per day: 1 [ Other cigarette details: started at age 13] Quit status (tobacco/nicotine): not considering quitting Alcohol intake: never Substance/Drug Use: never Household members: significant other Marital status: Number of children: 0 Current occupational status: disabled Leisure activites: hunting, fishing and other Leisure activities details: video games Jada/Mu-Ism: Jehovah'S Witness Special jada needs: No Agree to transfusion: Yes Female Reproductive History: Spontaneous abortions: No Physical Exam Const: COMMON NORMALS: no acute distress, patient oriented x3 and healthy appearing HENMT: COMMON NORMALS: normocephalic and atraumatic HEAD & SCALP: normocephalic and atraumatic Neck/C-Spine: COMMON NORMALS: full ROM and supple Chest: COMMONS NORMALS: normal inspection of the chest Resp: COMMON NORMALS: normal respiratory effort Extremity: COMMON NORMALS: full ROM NARRATIVE EXTREMITY EXAM: Slight tenderness to left pinky toe no obvious deformity Neuro: COMMON NORMALS: patient oriented x3, moves all extremities and no focal motor deficits Psych: COMMON NORMALS: mental status grossly normal, Normal thought process present and cooperative THOUGHT PROCESS: Normal thought process present Skin: COMMON NORMALS: no rashes or lesions noted and no wounds GENERAL SKIN EXAM: no rashes or lesions noted Course Vital Signs: Vital signs: Vital Signs Temperature 98.0 F 05/23/24 13:37 Pulse Rate 85 05/23/24 13:37 Respiratory Rate 16 05/23/24 13:37 Blood Pressure 124/80 05/23/24 13:37 Pulse Oximetry 99 05/23/24 13:37 Oxygen Delivery Me thod Room Air 05/23/24 13:37 MDM - Extremity (Nontraumatic) Medical Decision Making Patient presents here with toe sprain x-ray showed no fracture patient stable for discharge follow-up PCP return if worsening Medical Records I reviewed the patient's medical records. XR interpretation done by ED provider, pending radiology final review ED provider radiology interpretation(s): X-ray left foot no acute fracture Discharge Plan Discharge Patient Disposition: Home Clinical Impression: Sprain of fifth toe, left Condition: Stable Prescriptions: No Action promethazine [Phenergan] 25 mg/mL solution 25 mg IM ONCE Qty: 1 0RF (DME) FreeStyle Fallon 2 Sensor Kit See Rx Instructions .Route Qty: 1 0RF Rx Instructions: As directed (DME) OneTouch Ultra Test Strip See Rx Instructions .Route Qty: 100 0RF Rx Instructions: As directed (DME) Dexcom G7 Sensor Device See Rx Instructions .Route Qty: 1 0RF Rx Instructions: As directed (DME) Dexcom G6 Box Sealing Inspector Misc See Rx Instructions .Route Qty: 1 0RF Rx Instructions: As directed (DME) Blood Glucose Test Strip See Rx Instructions .MEDSUPPLY Qty: 200 12RF Rx Instructions: Freestyle precision Gucci blood glucose test strips Please check three times a day fluticasone propionate 50 mcg/actuation spray,suspension See Rx Instructions .ROUTE .COMPLEX Qty: 16 1RF Dose Instruction: USE 2 SPRAYS IN EACH NOSTRIL TWICE DAILY NEEDED FOR CONGESTION Rx Instructions: USE 2 SPRAYS IN EACH NOSTRIL TWICE DAILY NEEDED FOR CONGESTION albuterol sulfate 90 mcg/actuation HFA aerosol inhaler 2 inh INHALATION Q4H PRN (Reason: shortness of breath or wheezing) Qty: 18 0RF Discharge Orders: Discharge ED (Routine); Ordered 05/23/24 Ordered By: David Loco Referrals: Mine Real MD [Primary Care Provider] - Discharge Diet: Advance as tolerated Discharge Activity: Resume usual activity Patient Instructions: Foot Sprain (ED) Coding Level of Care Code ED Equipment Technician for Priscila Olmstead
[2024-05-23 14:37] VITALS: BP 119/74; PULSE 82; RESP 16; O2SAT 98
== END 2024-05-23 14:38 | disposition home or self-care (01) ==
PROVIDERS: Emergency Provider Emergency Medicine; PCP Family Medicine
DX: S93.505A Unspecified sprain of left lesser toe(s), initial encounter (principal); F17.210 Nicotine dependence, cigarettes, uncomplicated; X58.XXXA Exposure to other specified factors, initial encounter
CPT/HCPCS: 73630; 99283

== ENCOUNTER → 2024-05-26 10:47 | Outpatient (BNVA) | payer OTHER, SELFPAY | PROVIDERS: PCP Family Medicine; Visit Provider Physician Assistant | DX: M79.641 Pain in right hand (principal); M65.331 Trigger finger, right middle finger | CPT/HCPCS: 73130; 99213 ==

== ENCOUNTER → 2024-06-01 15:37 | Outpatient (BNVA) | payer OTHER, SELFPAY | PROVIDERS: PCP Family Medicine; Visit Provider Podiatrist Foot & Ankle Surgery | DX: E11.9 Type 2 diabetes mellitus without complications; M79.672 Pain in left foot; M21.372 Foot drop, left foot | CPT/HCPCS: 99203 ==

== ENCOUNTER 2024-06-27 19:09 | Emergency (ER) | payer MEDICARE, OTHER, SELFPAY ==
[2024-06-27 19:35] VITALS: BP 136/79; PULSE 98; RESP 16; TEMP 37.1; O2SAT 98
--- NOTE | 2024-06-27 20:05 | XRR_ITS ---
PROCEDURE INFORMATION: Exam: XR Chest Exam date and time: 06/27/2024 8:09 PM Age: 44 years old Clinical indication: Fever; Patient HX: Sent 2 images; Additional info: Dyspnea/cough TECHNIQUE: Imaging protocol: Radiologic exam of the chest. Views: 1 view. COMPARISON: CR XR chest 1V portable [id number] 05/29/2022 2:49 AM FINDINGS: Lungs: Mild bibasilar atelectasis. No new airspace disease. Pleural spaces: Unremarkable. No pleural effusion. No pneumothorax. Heart/Mediastinum: Unremarkable. No cardiomegaly. Bones/joints: Unremarkable. XR/XR chest 1V portable [id number] IMPRESSION: No acute cardiopulmonary findings.
--- NOTE | 2024-06-27 20:26 | ED_ITS ---
HPI - Fever General: Chief Complaint: Fever Stated Complaint: fever ear pain sinus phlem n/v/d Time Seen by Provider: 06/27/24 19:14 History of Present Illness: 44-year-old female who presents emergenc y with numerous complaints. She says she been having a fever. She says she has chronic ear infections for which she can only use eardrops. She says she is allergic to all antibiotics otherwise. Related Data Previous Rx's Medication Instructions Recorded blood sugar diagnostic (OneTouch #100 ea 08/10/23 Ultra Test strips) blood-glucose meter,continuous #1 ea 11/30/23 (Dexcom G6 Access Coordinator) blood-glucose sensor (Dexcom G7 #1 ea 11/30/23 Sensor device) blood sugar diagnostic (Blood #200 ea 02/16/24 Glucose Test strips) flash glucose sensor (FreeStyle #1 ea 02/23/24 Fallon 2 Sensor kit) fluticasone propionate 50 See Rx Instructions .Route 02/24/24 mcg/actuation nasal .COMPLEX #16 mL spray,suspension albuterol sulfate 90 mcg/actuation 2 inh inhalation Q4H PRN shortness 04/10/24 aerosol inhaler of breath or wheezing #18 grams AFO #1 ea 06/01/24 Rolling walker with seat #1 ea 06/14/24 [id number] 3.3 4 drp otic (ear) TID #10 mL 06/27/24 mg-3 mg-10 mg-0.5 mg/mL ear drops,susp (Cortisporin-TC) Allergies Allergy/AdvReac Type Severity Reaction Status Date / Time Latex, Natural Rubber Allergy Mild HIVES Verified 06/01/24 15:50 acetaminophen [From Tylenol] Allergy ALGY-Anaphy Verified 06/01/24 15:50 laxis amoxicillin Allergy ALGY-Rash Verified 06/01/24 15:50 Antihistamines - Alkylamine Allergy Unknown Verified 06/01/24 15:50 aspirin Allergy ALGY-Rash Verified 06/01/24 15:50 Cephalosporins Allergy Unknown Verified 06/01/24 15:50 clindamycin Allergy Unknown Verified 06/01/24 15:50 COVID-19 vaccine, mRNA, Allergy Unknown Verified 06/01/24 15:50 [id number], L diphenhydramine Allergy ALGY-Anaphy Verified 06/01/24 15:50 [From Benadryl] laxis doxycycline Allergy ALGY-Rash Verified 06/01/24 15:50 hydroxychloroquine Allergy Unknown Verified 06/01/24 15:50 Iodinated Contrast Media Allergy Unknown Verified 06/01/24 15:50 lactose Allergy ALGY-Rash Verified 06/01/24 15:50 Penicillins Allergy ALGY-Difficulty Verified 06/01/24 15:50 Breathing pneumococcal vaccine Allergy Unknown Verified 06/01/24 15:50 salicylates Allergy unknown Verified 06/01/24 15:50 Sulfa (Sulfonamide Allergy rash Verified 06/01/24 15:50 Antibiotics) Tetracyclines Allergy vomit.rash Verified 06/01/24 15:50 ANACIN FAMILY Allergy Unknown Uncoded 06/01/24 15:50 ANTIBIOTICS Allergy ALGY-Anaphy Uncoded 06/27/24 19:37 laxis blue dyes Allergy Unknown Uncoded 06/01/24 15:50 DERMATOLOGICALS Allergy Unknown Uncoded 06/01/24 15:50 flu vaccine Allergy Unknown Uncoded 06/01/24 15:50 FLUOROQUINOLONES Allergy Unknown Uncoded 06/01/24 15:50 ketolides? Allergy Unknown Uncoded 06/01/24 15:50 macrolides Allergy Unknown Uncoded 06/01/24 15:50 OPIOIDS Allergy Unknown Uncoded 06/01/24 15:50 SSRIs Allergy Unknown Uncoded 06/01/24 15:50 triamcinolone Allergy ALGY-Rash Uncoded 06/01/24 15:50 Review of Systems Narrative: Constitutional symptoms: Negative except as documented in HPI. Skin symptoms: Negative except as documented in HPI. Eye symptoms: Negative except as documented in HPI. ENMT symptoms: Negative except as documented in HPI. Respiratory symptoms: Negative except as documented in HPI. Cardiovascular symptoms: Negative except as documented in HPI. Gastrointestinal symptoms: Negative except as documented in HPI. Genitourinary symptoms: Negative except as documented in HPI. Musculoskeletal symptoms: Negative except as documented in HPI. Neurologic symptoms: Negative except as documented in HPI. Psychiatric symptoms: Negative except as documented in HPI. Endocrine symptoms: Negative except as documented in HPI. PFSH ED PFSH: Medical History Psychiatric care Fatty liver Hepatomegaly Multiple drug allergies History of kidney stones Mixed dyslipidemia Allergic rhinosinusitis Dyshidrotic eczema Cervical stenosis of spinal canal Left foot drop Obesity ETD (eustachian tube dysfunction) Migraines Surgical History History of appendectomy Family History Mother , at age 65 Aortic aneurysm Hypertension Social History Smoking and tobacco/nicotine status: current every day tobacco/nicotine user cigarettes Packs smoked per day: 1 [ Other cigarette details: started at age 13] Quit status (tobacco/nicotine): not considering quitting Alcohol intake: never Substance/Drug Use: never Household members: significant other Marital status: Number of children: 0 Current occupational status: disabled Leisure activites: hunting, fishing and other Leisure activities details: [employer] Jada/Mandaen: Mandaeism Special jada needs: No Agree to transfusion: Yes Female Reproductive History: Spontaneous abortions: No Physical Exam Narrative: EXAM NARRATIVE: General: Alert, no acute distress. Skin: warm and dry Head: Normocephalic Neck: Trachea midline Eye: Extraocular movements are intact. Ears, nose, mouth and throat: Oral mucosa moist, some erythema of the ear canals bilaterally Respiratory: Respirations are non-labored Musculoskeletal: Normal ROM Neurological: Alert and oriented, No focal neurological deficit observed. Psychiatric: Cooperative, appropriate mood & affect. Course Vital Signs: Vital signs: Vital Signs Temperature 98.7 F 06/27/24 19:35 Pulse Rate 98 06/27/24 19:35 Respiratory Rate 16 06/27/24 19:35 Blood Pressure 136/79 06/27/24 19:35 Pulse Oximetry 98 06/27/24 19:35 Oxygen Delivery Me thod Room Air 06/27/24 19:35 MDM - Fever Medical Decision Making Chest x-ray: No acute process. No infiltrate. No pneumothorax. This was reviewed and interpreted by myself the emergency room physician. I also reviewed the radiology report. Patient refuses any blood work. Assessment and plan: Otitis externa - Discharged home - Discussed plan with patient. Answered any questions. - Evaluation and treatment of this problem were appropriate in the emergency setting. All radiology interpretation(s) finalized by discharge Discharge Plan Discharge Patient Disposition: Home Clinical Impression: Otitis externa Condition: Stable Prescriptions: New Cortisporin-TC 3.3-3-10-0.5 mg/mL drops,suspension 4 drp otic (ear) TID Qty: 10 0RF No Action promethazine [Phenergan] 25 mg/mL solution 25 mg IM ONCE Qty: 1 0RF (DME) FreeStyle Fallon 2 Sensor Kit See Rx Instructions .Route Qty: 1 0RF Rx Instructions: As directed (DME) AFO See Rx Instructions .Route .MEDSUPPLY Qty: 1 0RF Rx Instructions: As directed (DME) OneTouch Ultra Test Strip See Rx Instructions .Route Qty: 100 0RF Rx Instructions: As directed (DME) Dexcom G7 Sensor Device See Rx Instructions .Route Qty: 1 0RF Rx Instructions: As directed (DME) Dexcom G6 Access Coordinator Misc See Rx Instructions .Route Qty: 1 0RF Rx Instructions: As directed (DME) Blood Glucose Test Strip See Rx Instructions .MEDSUPPLY Qty: 200 12RF Rx Instructions: Freestyle precision Gucci blood glucose test strips Please check three times a day fluticasone propionate 50 mcg/actuation spray,suspension See Rx Instructions .ROUTE .COMPLEX Qty: 16 1RF Dose Instruction: USE 2 SPRAYS IN EACH NOSTRIL TWICE DAILY NEEDED FOR CONGESTION Rx Instructions: USE 2 SPRAYS IN EACH NOSTRIL TWICE DAILY NEEDED FOR CONGESTION albuterol sulfate 90 mcg/actuation HFA aerosol inhaler 2 inh INHALATION Q4H PRN (Reason: shortness of breath or wheezing) Qty: 18 0RF (DME) Rolling walker with seat See Rx Instructions .Route .MEDSUPPLY Qty: 1 0RF Rx Instructions: As directed Home- Patient will need walker for Life Discharge Orders: Discharge ED (Routine); Ordered 06/27/24 Ordered By: Angelica Arevalo Referrals: Mine Real MD [Primary Care Provider] - Discharge Diet: Usual diet Discharge Activity: Increase activity as tolerated Patient Instructions: Otitis Externa - Adult, Opioid Safety, Pain Management Activity Restrictions/Additional Instructions: Thank you for choosing [facility] for your healthcare needs today. Please realize this is an emergency room and that we are providing you with a medical screening exam and this may not be complete and all inclusive of all the testing and or work up that you may need to determine your ailment or severity of your illness. You have been screened and evaluated and felt safe for discharge. Health conditions do change or evolve sometimes and as such it is important that you follow up with your Primary Doctor to be re checked, 3-5 days is a general good time frame for follow up. You are always welcome to return to the ED for re assessment if your symptoms are worsening or you have new concerns Coding Level of Care Code ED Manager [facility] for Priscila Olmstead
[2024-06-27 20:53] VITALS: BP 155/89; PULSE 99; O2SAT 99
--- NOTE | 2024-06-27 20:57 | PC.NURSE ---
PATIENT STATED SHE DID NOT WANT THE PILL FORM OF THIS MEDICATION.
[2024-06-27 21:19] LABS: Covid PCR NEGATIVE (Negative); Influenza A NEGATIVE (Negative); Influenza B NEGATIVE (Negative); Respiratory Syncytial Virus Ce NEGATIVE (Negative)
== END 2024-06-27 20:57 | disposition home or self-care (01) ==
PROVIDERS: Family Medicine; Emergency Provider Emergency Medicine; PCP Family Medicine
DX: H60.90 Unspecified otitis externa, unspecified ear (principal)
CPT/HCPCS: 0241U; 71045; 99284

== ENCOUNTER 2024-08-30 21:43 | Emergency (ER) | payer OTHER, SELFPAY ==
[2024-08-30 21:55] VITALS: BP 140/85; PULSE 88; RESP 18; TEMP 36.6; O2SAT 98; BMI 42.9
[2024-08-30 22:57] LABS: Covid PCR NEGATIVE (Negative); Influenza A NEGATIVE (Negative); Influenza B NEGATIVE (Negative); Respiratory Syncytial Virus Ce NEGATIVE (Negative)
--- NOTE | 2024-08-31 00:11 | ED_ITS ---
HPI - General Adult General: Chief complaint: Upper Respiratory Infection Stated complaint: dizzy, Pain in upper brest SOB , n/v Time Seen by Provider: 08/30/24 23:45 Source: patient Mode of arrival: ambulatory Limitations: no limitations History of Present Illness: Patient is a 44-year-old female here for multiple medical complaints. Yesterday evening morning she states she had an episode of wooziness while walking to the bathroom. It did not impair her ambulation. Patient states she has had identical episodes previously related to fluid behind her ears. She states she has a congenital eustachian tube dysfunction and frequently gets ear infections. She reportedly is on chronic Flonase but has not taken this medication in several days. She often takes antibiotic drops in her ears ? She tells me she has had a cough recently. She wants tested for flu and COVID. She has not been running fevers. She also thinks she might have a dental infection and that maybe it popped a lot in the waiting room. She has not noticed any swelling to her face. She has a dentist appointment scheduled for next week. She has not noticed any swelling to her face or neck. She is not having any dental pain at time of my examination. Patient tells me she cannot take antibiotics anyway as she has allergies to pretty much all antibiotics . She has over 29 things listed in her allergy list. Patient also states she has a migraine headache which is normal and she feels nauseous and is requesting 25mg of Phenergan . She arrives in no acute distress with stable vital signs. Onset (ago): day(s) Severity: mild Relieving factors: none Exacerbating factors: none Associated symptoms: Reports headache(s) and nausea; Deny chest pain, dyspnea, malaise, rash, palpitations, syncope or vomiting Treatments prior to arrival: none Related Data Previous Rx's ?Medication ?Instructions ?Recorded blood sugar diagnostic (OneTouch #100 ea 08/10/23 Ultra Test strips) blood-glucose meter,continuous #1 ea 11/30/23 (Dexcom G6 Correctional Supervisor) blood-glucose sensor (Dexcom G7 #1 ea 11/30/23 Sensor device) blood sugar diagnostic (Blood #200 ea 02/16/24 Glucose Test strips) albuterol sulfate 90 mcg/actuation 2 inh inhalation Q4 H PRN shortness 04/10/24 aerosol inhaler of breath or wheezing #18 gr ams AFO #1 ea 06/01/24 Rolling walker with seat #1 ea 06/14/24 [id number]-thonzonm 3.3 4 drp otic (ear) TID # 10 mL 06/27/24 mg-3 mg-10 mg-0.5 mg/mL ear drops,susp (Cortisporin-TC) fluticasone propionate 50 See Rx Instructions .Route 0 08/14/24 mcg/actuation nasal .COMPLEX #16 mL spray,suspension flash glucose sensor (FreeStyle #1 ea 08/22/24 Fallon 2 Sensor kit) Allergies Allergy/AdvReac Type Severity Reaction Status Date / Time Latex, Natural Rubber Allergy Mild HIVES Verified 08/30/24 22:01 acetaminophen (From Tylenol) Allergy ALGY-Anaphy Verified 08/30/24 22:01 laxis amoxicillin Allergy ALGY-Rash Verified 08/30/24 22:01 Antihistamines - Alkylamine Allergy Unknown Verified 08/30/24 22:01 aspirin Allergy ALGY-Rash Verified 08/30/24 22:01 Cephalosporins Allergy Unknown Verified 08/30/24 22:01 clindamycin Allergy Unknown Verified 08/30/24 22:01 COVID-19 vaccine, mRNA, Allergy Unknown Verified 08/30/24 22:01 [id number], L diphenhydramine (From Allergy ALGY-Anaphy Verified 08/30/24 22:01 Benadryl) laxis doxycycline Allergy ALGY-Rash Verified 08/30/24 22:01 hydroxychloroquine Allergy Unknown Verified 08/30/24 22:01 Iodinated Contrast Media Allergy Unknown Verified 08/30/24 22:01 lactose Allergy ALGY-Rash Verified 08/30/24 22:01 Penicillins Allergy ALGY-Difficulty Verified 08/30/24 22:01 Breathing pneumococcal vaccine Allergy Unknown Verified 08/30/24 22:01 salicylates Allergy unknown Verified 08/30/24 22:01 Sulfa (Sulfonamide Allergy rash Verified 08/30/24 22:01 Antibiotics) Tetracyclines Allergy vomit.rash Verified 08/30/24 22:01 ANACIN FAMILY Allergy Unknown Uncoded 08/14/24 12:51 ANTIBIOTICS Allergy ALGY-Anaphy Uncoded 08/14/24 12:51 laxis blue dyes Allergy Unknown Uncoded 08/14/24 12:51 DERMATOLOGICALS Allergy Unknown Uncoded 08/14/24 12:51 flu vaccine Allergy Unknown Uncoded 08/14/24 12:51 FLUOROQUINOLONES Allergy Unknown Uncoded 08/14/24 12:51 ketolides? Allergy Unknown Uncoded 08/14/24 12:51 macrolides Allergy Unknown Uncoded 08/14/24 12:51 OPIOIDS Allergy Unknown Uncoded 08/14/24 12:51 SSRIs Allergy Unknown Uncoded 08/14/24 12:51 triamcinolone Allergy ALGY-Rash Uncoded 08/14/24 12:51 Review of Systems Const: Denies: fever(s), chills, body aches, fatigue or malaise Eyes: Denies: change in vision, blurry vision or photophobia ENMT: Reports: ear or mastoid pain (chronic); Denies: throat pain, uvular edema, enlarged tonsils, odynophagia or bleeding gums Card: Denies: chest pain, palpitations, irregular heart rhythm, edema, syncope, pre-syncope, dyspnea on exertion or orthopnea Resp: Reports: non-productive cough; Denies: dyspnea GI: Reports: nausea; Denies: abdominal pain, vomiting or diarrhea : Denies: flank pain or dysuria Musc: Denies: neck pain, back pain, extremity pain or joint swelling Skin/Breast: Denies: rash Neuro: Reports: headache(s) and dizziness (one brief episode yesterday morning); Denies: numbness in extremities, sensory changes or difficulty walking PFS ED PFSH: Medical History Fatty liver Hepatomegaly Multiple drug allergies History of kidney stones Mixed dyslipidemia Allergic rhinosinusitis Dyshidrotic eczema Cervical stenosis of spinal canal Left foot drop Obesity ETD (eustachian tube dysfunction) Migraines Surgical History History of appendectomy Family History Mother , at age 65 Aortic aneurysm Hypertension Social History Smoking and tobacco/nicotine status: current every day tobacco/nicotine user cigarettes Packs smoked per day: 1 [ Other cigarette details: started at age 13] Quit status (tobacco/nicotine): not considering quitting Alcohol intake: never Substance/Drug Use: never Household members: significant other Marital status: Number of children: 0 Current occupational status: disabled Leisure activites: hunting, fishing and other Leisure activities details: [employer] Jada/Hinduism: Congregation Special jada needs: No Agree to transfusion: Yes Female Reproductive History: Spontaneous abortions: No Physical Exam Const: COMMON NORMALS: no acute distress, patient oriented x3, no limitations, alert and well nourished GENERAL APPEARANCE: cooperative NUTRITIONAL APPEARANCE: obese ORIENTATION/CONSCIOUSNESS: Yes awake, Yes oriented to person, Yes oriented to place and Yes oriented to time HENMT: COMMON NORMALS: normocephalic, atraumatic, external ears normal, EAC's normal, TM's normal bilaterally, Normal external nose present and oropharynx normal HEAD & SCALP: normal to inspection, normocephalic and atraumatic FACE & SINUS: normal facial exam and sinuses nontender; no erythema, no edema and no fluctuance NOSE: Normal external nose present EXTERNAL EAR: Yes external ears normal EXTERNAL AUDITORY CANAL: EAC's normal TYMPANIC MEMBRANE: TM's normal bilaterally MOUTH: Normal oral and palatal mucosa present and lip normal TEETH & GINGIVA: Yes other (severe widespread caries; no dental abscess ) THROAT: posterior oropharynx normal and tonsils normal; no uvular edema Eye: GENERAL EYE: appearance normal, both eyes and all related structures Neck/C-Spine: COMMON NORMALS: no lymphadenopathy GENERAL: No anterior neck swelling and No submandibular swelling Resp: COMMON NORMALS: normal respiratory effort and clear to auscultation bilaterally AUSCULTATION: clear to auscultation bilaterally Cardio: COMMON NORMALS: regular rate and regular rhythm RATE: regular rate RHYTHM: regular rhythm GI: COMMON NORMALS: Normal to inspection, nondistended, normoactive bowel sounds present, Soft to palpation and non-tender PALPATION: Yes Soft to palpation Extremity: GENERAL: Yes normal exam except as noted Neuro: MORGAN COMA SCALE: document GCS findings Morgan coma scale eye opening: Spontaneous Crowder coma scale verbal response: Orientated Crowder coma scale motor response: Obey commands Crowder coma scale total score: 15 COMMON NORMALS: patient oriented x3, CN's II-XII intact bilaterally, moves all extremities, no focal motor deficits, no sensory deficits noted and gait normal SENSORIUM/ORIENTATION: Yes alert, Yes oriented to person, Yes oriented to place and Yes oriented to time Skin: COMMON NORMALS: no rashes or lesions noted GENERAL SKIN EXAM: no rashes or lesions noted Course Vital Signs: Vital signs: Vital Signs Temperature 98 F 08/30/24 21:55 Pulse Rate 88 08/30/24 21:55 Respiratory Rate 18 08/30/24 21:55 Blood Pressure 140/85 08/30/24 21:55 Pulse Oximetry 98 08/30/24 21:55 Oxygen Delivery Me thod Room Air 08/30/24 21:55 MDM - General Adult Medical Decision Making Patient clinically appears in no acute distress. Her vital signs are stable. Patient has many many medical complaints at this time none of which I feel are life-threatening or emergent. She was tested for COVID/influenza/RSV while in the waiting room and this was negative. Patient was encouraged to follow-up with her primary care provider. Return to ED precautions discussed. Medical Records I reviewed the patient's medical records. Lab Data I reviewed the patient's lab results. Laboratory Results Coronavirus (PCR) Negative (Negative) 08/30/24 22:00 Influenza A (PCR) Negative (Negative) 08/30/24 22:00 Influenza Type B (PCR) Negative (Negative) 08/30/24 22:00 RSV (PCR) Negative (Negative) 08/30/24 22:00 No radiology studies performed this visit Discharge Plan Discharge Patient Disposition: Home Clinical Impression: Dizziness, Dental caries, Nausea, Multiple complaints Chronic ear pain Qualifiers: Laterality: bilateral Qualified Code(s): H92.03 - Otalgia, bilateral Migraines Qualifiers: Migraine type: without aura Status migrainosus presence: without status migrainosus Intractability: intractable Qualified Code(s): G43.019 - Migraine without aura, intractable, without status migrainosus Condition: Stable Prescriptions: No Action promethazine [Phenergan] 25 mg/mL solution 25 mg IM ONCE Qty: 1 0RF (DME) AFO See Rx Instructions .Route .MEDSUPPLY Qty: 1 0RF Rx Instructions: As directed fluticasone propionate 50 mcg/actuation spray,suspension See Rx Instructions .ROUTE .COMPLEX Qty: 16 1RF Dose Instruction: USE 2 SPRAYS IN EACH NOSTRIL TWICE DAILY NEEDED FOR CONGESTION Rx Instructions: USE 2 SPRAYS IN EACH NOSTRIL TWICE DAILY NEEDED FOR CONGESTION (DME) OneTouch Ultra Test Strip See Rx Instructions .Route Qty: 100 0RF Rx Instructions: As directed (DME) Dexcom G7 Sensor Device See Rx Instructions .Route Qty: 1 0RF Rx Instructions: As directed (DME) Dexcom G6 Correctional Supervisor Misc See Rx Instructions .Route Qty: 1 0RF Rx Instructions: As directed (DME) Blood Glucose Test Strip See Rx Instructions .MEDSUPPLY Qty: 200 12RF Rx Instructions: Freestyle precision Gucci blood glucose test strips Please check three times a day albuterol sulfate 90 mcg/actuation HFA aerosol inhaler 2 inh INHALATION Q4H PRN (Reason: shortness of breath or wheezing) Qty: 18 0RF (DME) Rolling walker with seat See Rx Instructions .Route .MEDSUPPLY Qty: 1 0RF Rx Instructions: As directed Home- Patient will need walker for Life (DME) FreeStyle Fallon 2 Sensor Kit See Rx Instructions .Route Qty: 1 0RF Rx Instructions: As directed Cortisporin-TC 3.3-3-10-0.5 mg/mL drops,suspension 4 drp otic (ear) TID Qty: 10 0RF Discharge Orders: Discharge ED (Routine); Ordered 08/31/24 Ordered By: Pily Donis Referrals: Mine Real MD [Primary Care Provider] - Activity Restrictions/Additional Instructions: As we discussed, we addressed multiple medical complaints today including cough, headache, dental caries/tooth ache, nausea, dizziness, sinus issues, etc. at this time any life-threatening or emergent condition present. You may follow-up with your primary care provider. Print Language: Portuguese Coding Level of Care Code ED Cloth Hauler for Priscila Olmstead
[2024-08-31] MEDS: promethazine 25 mg/mL SDV 1 mL IM (00:19)
== END 2024-08-31 00:35 | disposition home or self-care (01) ==
PROVIDERS: Emergency Medicine; Emergency Provider Physician Assistant; PCP Family Medicine
DX: R42 Dizziness and giddiness (principal); K02.9 Dental caries, unspecified; R11.0 Nausea; H92.03 Otalgia, bilateral; G43.019 Migraine without aura, intractable, without status migrainosus; F17.210 Nicotine dependence, cigarettes, uncomplicated; E78.2 Mixed hyperlipidemia
CPT/HCPCS: 87637; 96372; 99284; J2550

== ENCOUNTER → 2024-09-18 16:15 | Outpatient (BNVA) | payer OTHER, SELFPAY | PROVIDERS: PCP Family Medicine; Visit Provider Family Medicine | DX: E11.9 Type 2 diabetes mellitus without complications (principal); E55.9 Vitamin D deficiency, unspecified | CPT/HCPCS: 80053; 82306; 83036 ==

== ENCOUNTER 2024-11-22 19:30 | Emergency (ER) | payer OTHER, SELFPAY ==
[2024-11-22 19:35] VITALS: BP 158/96; PULSE 83; RESP 18; TEMP 37.1; O2SAT 97
--- NOTE | 2024-11-22 19:46 | ED_ITS ---
HPI - Ear Problem General: Chief complaint: Ear Stated complaint: Ear Pain Time Seen by Provider: 11/22/24 19:41 Source: patient Mode of arrival: ambulatory Limitations: no limitations History of Present Illness: 44-year-old female who states she has be en having ear pain along with headaches and feeling like she is having fluid behind her ears over the last 2 to 3 days she rates her pain a 5 out of 10 she denies any fevers denies any neck pain. Associated symptoms: Reports ear or mastoid pain and headache(s); Denies fever(s) or neck pain Related Data Previous Rx's ?Medication ?Instructions ?Recorded blood sugar diagnostic (OneTouch #100 ea 08/10/23 Ultra Test strips) blood-glucose meter,continuous #1 ea 11/30/23 (Dexcom G6 Carbide Tool Maker) blood-glucose sensor (Dexcom G7 #1 ea 11/30/23 Sensor device) blood sugar diagnostic (Blood #200 ea 02/16/24 Glucose Test strips) albuterol sulfate 90 mcg/actuation 2 inh inhalation Q4 H PRN shortness 04/10/24 aerosol inhaler of breath or wheezing #18 gr ams AFO #1 ea 06/01/24 Rolling walker with seat #1 ea 06/14/24 [id number]-[id number]-thonzonm 3.3 4 drp otic (ear) TID # 10 mL 06/27/24 mg-3 mg-10 mg-0.5 mg/mL ear drops,susp (Cortisporin-TC) fluticasone propionate 50 See Rx Instructions .Route 0 08/14/24 mcg/actuation nasal .COMPLEX #16 mL spray,suspension flash glucose sensor (FreeStyle #1 ea 08/22/24 Fallon 2 Sensor kit) cholecalciferol (vitamin D3) 1,250 1,250 mcg PO .weekl y #12 tabs 09/20/24 mcg (50,000 unit) tablet Allergies Allergy/AdvReac Type Severity Reaction Status Date / Time Latex, Natural Rubber Allergy Mild HIVES Verified 11/22/24 19:40 acetaminophen (From Tylenol) Allergy ALGY-Anaphy Verified 11/22/24 19:40 laxis amoxicillin Allergy ALGY-Rash Verified 11/22/24 19:40 Antihistamines - Alkylamine Allergy Unknown Verified 11/22/24 19:40 aspirin Allergy ALGY-Rash Verified 11/22/24 19:40 Cephalosporins Allergy Unknown Verified 11/22/24 19:40 clindamycin Allergy Unknown Verified 11/22/24 19:40 COVID-19 vaccine, mRNA, Allergy Unknown Verified 11/22/24 19:40 [id number], L diphenhydramine (From Allergy ALGY-Anaphy Verified 11/22/24 19:40 Benadryl) laxis doxycycline Allergy ALGY-Rash Verified 11/22/24 19:40 hydroxychloroquine Allergy Unknown Verified 11/22/24 19:40 Iodinated Contrast Media Allergy Unknown Verified 11/22/24 19:40 lactose Allergy ALGY-Rash Verified 11/22/24 19:40 Penicillins Allergy ALGY-Difficulty Verified 11/22/24 19:40 Breathing pneumococcal vaccine Allergy Unknown Verified 11/22/24 19:40 salicylates Allergy unknown Verified 11/22/24 19:40 Sulfa (Sulfonamide Allergy rash Verified 11/22/24 19:40 Antibiotics) Tetracyclines Allergy vomit.rash Verified 11/22/24 19:40 ANACIN FAMILY Allergy Unknown Uncoded 11/22/24 19:40 ANTIBIOTICS Allergy ALGY-Anaphy Uncoded 11/22/24 19:40 laxis blue dyes Allergy Unknown Uncoded 11/22/24 19:40 DERMATOLOGICALS Allergy Unknown Uncoded 11/22/24 19:40 flu vaccine Allergy Unknown Uncoded 11/22/24 19:40 FLUOROQUINOLONES Allergy Unknown Uncoded 11/22/24 19:40 ketolides? Allergy Unknown Uncoded 11/22/24 19:40 macrolides Allergy Unknown Uncoded 11/22/24 19:40 OPIOIDS Allergy Unknown Uncoded 11/22/24 19:40 SSRIs Allergy Unknown Uncoded 11/22/24 19:40 triamcinolone Allergy ALGY-Rash Uncoded 11/22/24 19:40 Review of Systems Const: Denies: fever(s), chills, body aches or change in appetite ENMT: Reports: ear or mastoid pain; Denies: throat pain or dental pain Card: Denies: chest pain Resp: Denies: dyspnea GI: Denies: abdominal pain, nausea, vomiting or diarrhea Musc: Denies: neck pain or back pain Skin/Breast: Denies: rash Neuro: Reports: headache(s) PFSH ED PFSH: Medical History Fatty liver Hepatomegaly Multiple drug allergies History of kidney stones Mixed dyslipidemia Allergic rhinosinusitis Dyshidrotic eczema Cervical stenosis of spinal canal Left foot drop Obesity ETD (eustachian tube dysfunction) Migraines Surgical History History of appendectomy Family History Mother , at age 65 Aortic aneurysm Hypertension Social History Smoking and tobacco/nicotine status: current every day tobacco/nicotine user cigarettes Packs smoked per day: 1 [ Other cigarette details: started at age 13] Quit status (tobacco/nicotine): not considering quitting Alcohol intake: never Substance/Drug Use: never Household members: significant other Marital status: Number of children: 0 Current occupational status: disabled Leisure activites: hunting, fishing and other Leisure activities details: [employer] Jada/Sikhism: Zoroastrian Special jada needs: No Agree to transfusion: Yes Female Reproductive History: Spontaneous abortions: No Physical Exam Const: COMMON NORMALS: no acute distress, patient oriented x3 and healthy appearing HENMT: COMMON NORMALS: normocephalic, atraumatic and TM's normal bilaterally HEAD & SCALP: normocephalic and atraumatic TYMPANIC MEMBRANE: TM's normal bilaterally Eye: COMMON NORMALS: Equal, round and reactive pupils present and EOMs intact bilaterally PUPIL: Yes Equal, round and reactive pupils present Neck/C-Spine: COMMON NORMALS: full ROM and supple Chest: COMMONS NORMALS: normal inspection of the chest Resp: COMMON NORMALS: normal respiratory effort Cardio: COMMON NORMALS: regular rate, regular rhythm and No murmurs present (Cardio) RATE: regular rate RHYTHM: regular rhythm Extremity: COMMON NORMALS: normal to inspection and full ROM Neuro: COMMON NORMALS: patient oriented x3, moves all extremities and no focal motor deficits Psych: COMMON NORMALS: mental status grossly normal, Normal thought process present and cooperative THOUGHT PROCESS: Normal thought process present Skin: COMMON NORMALS: no rashes or lesions noted and no wounds GENERAL SKIN EXAM: no rashes or lesions noted Course Vital Signs: Vital signs: Vital Signs Temperature 98.7 F 11/22/24 19:35 Pulse Rate 83 11/22/24 19:35 Respiratory Rate 18 11/22/24 19:35 Blood Pressure 158/96 11/22/24 19:35 Pulse Oximetry 97 11/22/24 19:35 Oxygen Delivery Me thod Room Air 11/22/24 19:35 MDM - Ear Medical Decision Making Patient presents here with ear pain no signs of otitis media or externa did inform her she should take a decongestion as she states she feels like she has some fluid behind her ears and headache as well no signs of meningitis she stable for discharge follow-up PCP return if worsening Medical Records I reviewed the patient's medical records. No radiology studies performed this visit Discharge Plan Discharge Patient Disposition: Home Clinical Impression: Ear pain Migraines Qualifiers: Migraine type: without aura Status migrainosus presence: without status migrainosus Intractability: intractable Qualified Code(s): G43.019 - Migraine without aura, intractable, without status migrainosus Condition: Stable Prescriptions: No Action (DME) AFO See Rx Instructions .Route .MEDSUPPLY Qty: 1 0RF Rx Instructions: As directed fluticasone propionate 50 mcg/actuation spray,suspension See Rx Instructions .ROUTE .COMPLEX Qty: 16 1RF Dose Instruction: USE 2 SPRAYS IN EACH NOSTRIL TWICE DAILY NEEDED FOR CONGESTION Rx Instructions: USE 2 SPRAYS IN EACH NOSTRIL TWICE DAILY NEEDED FOR CONGESTION (DME) OneTouch Ultra Test Strip See Rx Instructions .Route Qty: 100 0RF Rx Instructions: As directed (DME) Dexcom G7 Sensor Device See Rx Instructions .Route Qty: 1 0RF Rx Instructions: As directed (DME) Dexcom G6 Carbide Tool Maker Misc See Rx Instructions .Route Qty: 1 0RF Rx Instructions: As directed (DME) Blood Glucose Test Strip See Rx Instructions .MEDSUPPLY Qty: 200 12RF Rx Instructions: Freestyle precision Gucci blood glucose test strips Please check three times a day albuterol sulfate 90 mcg/actuation HFA aerosol inhaler 2 inh INHALATION Q4H PRN (Reason: shortness of breath or wheezing) Qty: 18 0RF (DME) Rolling walker with seat See Rx Instructions .Route .MEDSUPPLY Qty: 1 0RF Rx Instructions: As directed Home- Patient will need walker for Life (DME) FreeStyle Fallon 2 Sensor Kit See Rx Instructions .Route Qty: 1 0RF Rx Instructions: As directed cholecalciferol (vitamin D3) 1,250 mcg (50,000 unit) tablet 1,250 mcg PO .weekly Qty: 12 0RF Cortisporin-TC 3.3-3-10-0.5 mg/mL drops,suspension 4 drp otic (ear) TID Qty: 10 0RF Discharge Orders: Discharge ED (Routine); Ordered 11/22/24 Ordered By: David Loco Referrals: Mnie Real MD [Primary Care Provider, Family Practice] - 4-7 days Discharge Diet: Advance as tolerated Discharge Activity: Resume usual activity Patient Instructions: Migraine Headache (ED), Earache (ED) Print Language: Arabic Coding Level of Care Code ED Roving Hauler for Priscila Olmstead
[2024-11-22] MEDS: promethazine 25 mg/mL SDV 1 mL IM (19:57)
[2024-11-22 20:06] VITALS: BP 158/94; PULSE 88; RESP 16; O2SAT 97
== END 2024-11-22 20:08 | disposition home or self-care (01) ==
PROVIDERS: Emergency Provider Emergency Medicine; PCP Family Medicine
DX: G43.019 Migraine without aura, intractable, without status migrainosus (principal); H92.09 Otalgia, unspecified ear; F17.210 Nicotine dependence, cigarettes, uncomplicated; E78.2 Mixed hyperlipidemia
CPT/HCPCS: 96372; 99284; J2550

== ENCOUNTER 2024-12-01 22:39 | Emergency (ER) | payer OTHER, SELFPAY ==
[2024-12-01 22:48] VITALS: BP 159/89; PULSE 93; RESP 16; TEMP 36.7; O2SAT 99; BMI 42.9
[2024-12-01 23:49] VITALS: BP 158/94; PULSE 94; O2SAT 98
--- NOTE | 2024-12-01 23:51 | ECG_ITS ---
[facility] Date: 2024-12-01 Pat Name: Elie Salas Department: Room: Gender: Female Rf Technician: : 1980 Requested By: Rubens Leggett Order Number: [id number] Reading MD: JAMIL DALTON Measurements Intervals [place] Rate: 90 P: 68 SC: 189 QRS: 62 QRSD: 98 T: 56 QT: 363 QTc: 446 Interpretive Statements SINUS RHYTHM INCOMPLETE RIGHT BUNDLE BRANCH BLOCK [90+ ms QRS DURATION, TERMINAL R IN V1/V2, 40+ ms S IN I/aVL/V4/V5/V6] NONSPECIFIC T-WAVE ABNORMALITY Compared to ECG 05/29/2022 02:47:31 Incomplete right bundle-branch block now present T-wave abnormality now present Electronically Signed On 12-02-2024 16:21:06 CDT by JAMIL DALTON [id number]
--- NOTE | 2024-12-01 23:58 | W.ED.GENADLT ---
HPI - General Adult General: Chief complaint: General Medical Stated complaint: Fluctuating BP Time Seen by Provider: 12/01/24 23:37 History of Present Illness: Patient presents emerged part with complaint of ear pressure and dizziness. She has a history of chronic eustachian tube dysfunction. She takes Flonase for this daily. She states that she is more concerned because her blood pressure was somewhat fluctuant today. Although the numbers do not sound concerning. She states her blood pressure went from 153 then 155 and then as high as 170 and then as low as 145 all systolic. She states that she did not know if this was concerning or not. She denies having any chest pain. She is under a lot of stress and anxiety she states. She is not sleeping well. She does have a lot of mental health disorder. Related Data Previous Rx's ?Medication ?Instructions ?Recorded blood sugar diagnostic (OneTouch #100 ea 08/10/23 Ultra Test strips) blood-glucose meter,continuous #1 ea 11/30/23 (Dexcom G6 [place]/Masseuse) blood-glucose sensor (Dexcom G7 #1 ea 11/30/23 Sensor device) blood sugar diagnostic (Blood #200 ea 02/16/24 Glucose Test strips) albuterol sulfate 90 mcg/actuation 2 inh inhalation Q4H PRN shortness 04/10/24 aerosol inhaler of breath or wheezing #18 grams AFO #1 ea 06/01/24 Rolling walker with seat #1 ea 06/14/24 [id number]-thonzonm 3.3 4 drp otic (ear) TID #10 mL 06/27/24 mg-3 mg-10 mg-0.5 mg/mL ear drops,susp (Cortisporin-TC) fluticasone propionate 50 See Rx Instructions .Route 08/14/24 mcg/actuation nasal .COMPLEX #16 mL spray,suspension flash glucose sensor (FreeStyle #1 ea 08/22/24 Fallon 2 Sensor kit) cholecalciferol (vitamin D3) 1,250 1,250 mcg PO .weekly #12 tabs 09/20/24 mcg (50,000 unit) tablet Allergies Allergy/AdvReac Type Severity Reaction Status Date / Time Latex, Natural Rubber Allergy Mild HIVES Verified 11/22/24 19:40 acetaminophen (From Tylenol) Allergy ALGY-Anaphy Verified 11/22/24 19:40 laxis amoxicillin Allergy ALGY-Rash Verified 11/22/24 19:40 Antihistamines - Alkylamine Allergy Unknown Verified 11/22/24 19:40 aspirin Allergy ALGY-Rash Verified 11/22/24 19:40 Cephalosporins Allergy Unknown Verified 11/22/24 19:40 clindamycin Allergy Unknown Verified 11/22/24 19:40 COVID-19 vaccine, mRNA, Allergy Unknown Verified 11/22/24 19:40 [id number], L diphenhydramine (From Allergy ALGY-Anaphy Verified 11/22/24 19:40 Benadryl) laxis doxycycline Allergy ALGY-Rash Verified 11/22/24 19:40 hydroxychloroquine Allergy Unknown Verified 11/22/24 19:40 Iodinated Contrast Media Allergy Unknown Verified 11/22/24 19:40 lactose Allergy ALGY-Rash Verified 11/22/24 19:40 Penicillins Allergy ALGY-Difficulty Verified 11/22/24 19:40 Breathing pneumococcal vaccine Allergy Unknown Verified 11/22/24 19:40 salicylates Allergy unknown Verified 11/22/24 19:40 Sulfa (Sulfonamide Allergy rash Verified 11/22/24 19:40 Antibiotics) Tetracyclines Allergy vomit.rash Verified 11/22/24 19:40 ANACIN FAMILY Allergy Unknown Uncoded 11/22/24 19:40 ANTIBIOTICS Allergy ALGY-Anaphy Uncoded 11/22/24 19:40 laxis blue dyes Allergy Unknown Uncoded 11/22/24 19:40 DERMATOLOGICALS Allergy Unknown Uncoded 11/22/24 19:40 flu vaccine Allergy Unknown Uncoded 11/22/24 19:40 FLUOROQUINOLONES Allergy Unknown Uncoded 11/22/24 19:40 ketolides? Allergy Unknown Uncoded 11/22/24 19:40 macrolides Allergy Unknown Uncoded 11/22/24 19:40 OPIOIDS Allergy Unknown Uncoded 11/22/24 19:40 SSRIs Allergy Unknown Uncoded 11/22/24 19:40 triamcinolone Allergy ALGY-Rash Uncoded 11/22/24 19:40 PFSH ED PFSH: Medical History Fatty liver Hepatomegaly Multiple drug allergies History of kidney stones Mixed dyslipidemia Allergic rhinosinusitis Dyshidrotic eczema Cervical stenosis of spinal canal Left foot drop Obesity ETD (eustachian tube dysfunction) Migraines Surgical History History of appendectomy Family History Mother , at age 65 Aortic aneurysm Hypertension Social History Smoking and tobacco/nicotine status: current every day tobacco/nicotine user cigarettes Packs smoked per day: 1 [ Other cigarette details: started at age 13] Quit status (tobacco/nicotine): not considering quitting Alcohol intake: never Substance/Drug Use: never Household members: significant other Marital status: Number of children: 0 Current occupational status: disabled Leisure activites: hunting, fishing and other Leisure activities details: [place] Jada/Episcopalian: Roman Catholic Special jada needs: No Agree to transfusion: Yes Female Reproductive History: Spontaneous abortions: No Physical Exam HENMT: OTHER: Bilateral tympanic membranes with bulging but no erythema and decreased movement on Valsalva Neck/C-Spine: COMMON NORMALS: no JVD Resp: COMMON NORMALS: normal respiratory effort, No retractions, No use of accessory muscles, clear to auscultation bilaterally and percussion normal AUSCULTATION: clear to auscultation bilaterally PERCUSSION: percussion normal Cardio: COMMON NORMALS: no JVD, regular rate, regular rhythm, S1 normal heart sound present, S2 normal heart sound present, No gallops present (Cardio), No clicks present (Cardio), No murmurs present (Cardio), No rub (Cardio) and Peripheral pulses 2+ throughout RATE: regular rate RHYTHM: regular rhythm HEART SOUNDS: S1 normal heart sound present and S2 normal heart sound present PERIPHERAL PULSES: Peripheral pulses 2+ throughout GI: COMMON NORMALS: Normal to inspection, nondistended, normoactive bowel sounds present, Soft to palpation, non-tender, No hepatosplenomegaly present, no masses and no bruits PALPATION: Yes Soft to palpation and Yes No hepatosplenomegaly present Course Vital Signs: Vital signs: Vital Signs Temperature 98.0 F 12/01/24 22:48 Pulse Rate 94 12/01/24 23:49 Respiratory Rate 16 12/01/24 22:48 Blood Pressure 158/94 12/01/24 23:49 Pulse Oximetry 98 12/01/24 23:49 Oxygen Delivery Me thod Room Air 12/01/24 22:48 MDM - General Adult Medical Decision Making patient presents emerged part with complaint of ear pressure and dizziness. She has a history of chronic eustachian tube dysfunction. She takes Flonase for this daily. She states that she is more concerned because her blood pressure was somewhat fluctuant today. Although the numbers do not sound concerning. She states her blood pressure went from 153 then 155 and then as high as 170 and then as low as 145 all systolic. She states that she did not know if this was concerning or not. She denies having any chest pain. She is under a lot of stress and anxiety she states. She is not sleeping well. She does have a lot of mental health disorder. Discussed with patient that I would recommend some Afrin although she is very hesitant to take it because she states that she has over 30 allergies. She states that she would rather just take her Flonase. Her EKG shows nonspecific ST and T wave changes. Has a ventricular rate of 90. Has no acute ischemic changes. Discussed with patient that her blood pressure is all somewhat elevated but not emergently so and that those numbers fluctuating 15-20 points is not concerning. Advised patient to try to reduce her stress and anxiety and get some rest. Do not see any other indication for further workup. Patient has no chest pain or shortness of breath. She has no syncope. She has seems mostly anxiety. Does not want any further treatment for her eustachian tube dysfunction. No radiology studies performed this visit Discharge Plan Discharge Patient Disposition: Home Clinical Impression: Acute dysfunction of both eustachian tubes Condition: Stable Prescriptions: No Action (DME) AFO See Rx Instructions .Route .MEDSUPPLY Qty: 1 0RF Rx Instructions: As directed fluticasone propionate 50 mcg/actuation spray,suspension See Rx Instructions .ROUTE .COMPLEX Qty: 16 1RF Dose Instruction: USE 2 SPRAYS IN EACH NOSTRIL TWICE DAILY NEEDED FOR CONGESTION Rx Instructions: USE 2 SPRAYS IN EACH NOSTRIL TWICE DAILY NEEDED FOR CONGESTION (DME) OneTouch Ultra Test Strip See Rx Instructions .Route Qty: 100 0RF Rx Instructions: As directed (DME) Dexcom G7 Sensor Device See Rx Instructions .Route Qty: 1 0RF Rx Instructions: As directed (DME) Dexcom G6 Masseur/Masseuse Misc See Rx Instructions .Route Qty: 1 0RF Rx Instructions: As directed (DME) Blood Glucose Test Strip See Rx Instructions .MEDSUPPLY Qty: 200 12RF Rx Instructions: Freestyle precision Gucci blood glucose test strips Please check three times a day albuterol sulfate 90 mcg/actuation HFA aerosol inhaler 2 inh INHALATION Q4H PRN (Reason: shortness of breath or wheezing) Qty: 18 0RF (DME) Rolling walker with seat See Rx Instructions .Route .MEDSUPPLY Qty: 1 0RF Rx Instructions: As directed Home- Patient will need walker for Life (DME) FreeStyle Fallon 2 Sensor Kit See Rx Instructions .Route Qty: 1 0RF Rx Instructions: As directed cholecalciferol (vitamin D3) 1,250 mcg (50,000 unit) tablet 1,250 mcg PO .weekly Qty: 12 0RF Cortisporin-TC 3.3-3-10-0.5 mg/mL drops,suspension 4 drp otic (ear) TID Qty: 10 0RF Discharge Orders: Discharge ED (Routine); Ordered 12/01/24 Ordered By: Rubens Leggett Referrals: Mine Real MD [Primary Care Provider, Family Practice] Patient Instructions: Opioid Safety, Pain Management Print Language: [place] Coding Level of Care Code ED Sheet Rocker for Priscila Olmstead
[2024-12-02 00:13] VITALS: BP 158/94; PULSE 88; O2SAT 97
== END 2024-12-02 00:03 | disposition home or self-care (01) ==
PROVIDERS: Emergency Provider Emergency Medicine; PCP Family Medicine
DX: H69.93 Unspecified Eustachian tube disorder, bilateral (principal); F17.210 Nicotine dependence, cigarettes, uncomplicated; E78.2 Mixed hyperlipidemia
CPT/HCPCS: 93005; 99282

== ENCOUNTER → 2025-03-21 14:21 | Outpatient (BNVA) | payer MEDICARE, OTHER, SELFPAY | PROVIDERS: PCP Family Medicine; Visit Provider Family Medicine | DX: E11.9 Type 2 diabetes mellitus without complications (principal); E55.9 Vitamin D deficiency, unspecified; M79.10 Myalgia, unspecified site | CPT/HCPCS: 80053; 82306; 83036; 86038 ==